=== PATIENT | female | born 1955 | race Caucasian/White ===

== ENCOUNTER → 2018-04-24 | Outpatient (CLI) | payer OTHER | END | disposition home or self-care (01) | LOC: RAH 09:04 | PROVIDERS: ATTEND Family Medicine | DX: Z12.31 Encounter for screening mammogram for malignant neoplasm of breast (principal) | CPT/HCPCS: 77067 ==

== ENCOUNTER → 2019-05-17 | Outpatient (CLI) | payer OTHER | END | disposition home or self-care (01) | LOC: RAH 15:11 | PROVIDERS: ATTEND Family Medicine | DX: Z12.31 Encounter for screening mammogram for malignant neoplasm of breast (principal) | CPT/HCPCS: 77067 ==

== ENCOUNTER → 2019-10-01 | Outpatient (CLI) | payer OTHER ==
[~2019-10-01] MED LIST: AEC81 PO; ALLO300T2 PO; CARV6.2579 PO; CELE200 PO; CHOL2000 PO; DULO60CA44 PO; OMEP20TA2 PO; SPIR25TA PO; TORS20TA4 PO
== END | disposition home or self-care (01) ==
LOC: SHCH 12:30
PROVIDERS: ATTEND Internal Medicine Cardiovascular Disease
DX: I50.22 Chronic systolic (congestive) heart failure (principal)
CPT/HCPCS: 93306

== ENCOUNTER → 2020-11-03 | Outpatient (CLI) | payer OTHER | END | disposition home or self-care (01) | LOC: SHCH 12:38 | PROVIDERS: ATTEND Internal Medicine Cardiovascular Disease | DX: I10 Essential (primary) hypertension (principal) | CPT/HCPCS: 93306; 93356 ==

== ENCOUNTER 2021-07-04 10:49 | Emergency (ER) | payer MEDICARE ==
[~2021-07-04] VITALS: Ht 177.8 cm; Wt 101.6 kg
[~2021-07-04 10:49] MED LIST changes: -DULO60CA44 PO; +DULO60CA45 PO
[2021-07-04 11:25] LABS: BASOPHILS % (AUTO) 0.4 % (0.0-5.0); EOSINOPHILS % (AUTO) 2.3 % (0.0-8.0); HEMATOCRIT 40.3 % (36-48); LYMPHOCYTES % (AUTO) 34.4 % (21.0-51.0); MEAN CORPUSCULAR HEMOGLOBIN 29.5 pg (27.0-33.0); MEAN CORPUSCULAR HGB CONC 32.3 g/dL (32.0-36.0); MEAN CORPUSCULAR VOLUME 91.6 fL (79-99); MONOCYTES % (AUTO) 6.9 % (3.0-13.0); NEUTROPHILS % (AUTO) 55.5 % (40.0-77.0); PLATELET COUNT (AUTO) 470 K/uL (130-400); RED CELL DISTRIBUTION WIDTH 15.7 % (11.0-15.5); WHITE BLOOD COUNT (AUTO) 14.2 K/uL (4.8-10.8)
[2021-07-04 11:52] LABS: CREATININE 1.1 mg/dL (0.5-1.5); POTASSIUM 4.2 mmol/L (3.5-5.1)
[2021-07-04 11:54] LABS: ALBUMIN 3.8 g/dL (3.5-5.0); BILIRUBIN,TOTAL 0.4 mg/dL (0.2-1.0); TOTAL PROTEIN, SERUM 7.8 g/dL (6.0-8.3)
[2021-07-04 11:57] LABS: B-TYPE NATRIURETIC PEPTIDE 51 pg/mL (0-100)
[2021-07-04] MEDS ORDERED: 0.9%NACL 1000ML 1,000 ML IV ONE (13:00)
[2021-07-04] MEDS ORDERED: IOHEXOL-350 75 ML VIAL IV ONE (13:44)
[2021-07-04 14:29] VITALS: BP 127/82
== END 2021-07-04 15:12 | disposition home or self-care (01) ==
LOC: EDH 10:49
DX: R23.8 Other skin changes (principal); R06.09 Other forms of dyspnea; E86.1 Hypovolemia; I11.0 Hypertensive heart disease with heart failure; I50.9 Heart failure, unspecified; E78.00 Pure hypercholesterolemia, unspecified; M79.7 Fibromyalgia; Z88.8 Allergy status to other drugs, medicaments and biological substances; Z79.899 Other long term (current) drug therapy; Z79.82 Long term (current) use of aspirin; Z98.890 Other specified postprocedural states
CPT/HCPCS: 36415; 71045; 71275; 80053; 83880; 84484; 85025; 85378; 93005; 93970; 96360; 99285; J7030; Q9967

== ENCOUNTER → 2021-09-21 | Outpatient (CLI) | payer MEDICARE | END | disposition home or self-care (01) | LOC: RAH 15:03 | PROVIDERS: ATTEND Family Medicine | DX: Z12.31 Encounter for screening mammogram for malignant neoplasm of breast (principal) | CPT/HCPCS: 77067 ==

== ENCOUNTER → 2023-09-12 | Outpatient (CLI) | payer MEDICARE | END | disposition home or self-care (01) | LOC: SHCH 14:33 | PROVIDERS: ATTEND Internal Medicine Cardiovascular Disease | DX: I08.0 Rheumatic disorders of both mitral and aortic valves (principal); I11.9 Hypertensive heart disease without heart failure; E78.5 Hyperlipidemia, unspecified; F17.200 Nicotine dependence, unspecified, uncomplicated | CPT/HCPCS: 93306 ==

== ENCOUNTER 2025-02-09 22:46 | Inpatient (IN) | payer MEDICARE ==
[~2025-02-09] VITALS: Ht 177.8 cm; Wt 108.0 kg
[~2025-02-09 22:46] MED LIST changes: -CELE200 PO; +DICL20GE TP; -DULO60CA45 PO; +DULO60CA64 PO; +FLUT1BLS3 IH
--- NOTE | 2025-02-09 23:48 | EKG ---
[facility] Test Date: 2025-02-09 Test Time: 23:41:21 Pat Name: VLAD MANDUJANO Department: EDH Room: ED Gender: F Seed Sorter: [id number] Requested By: KAELYN YOO Order Number: [id number] Reading MD: Ayaka Lemus Measurements Intervals [place] Rate: 71 P: 71 ID: [id number] QRS: 43 QRSD: 118 T: 120 QT: 377 QTc: 411 Interpretive Statements Sinus rhythm Nonspecific intraventricular conduction delay Low voltage, precordial leads Nonspecific T abnrm, anterolateral leads Compared to ECG 07/04/2021 11:19:10 Intraventricular conduction delay now present Low QRS voltage now present Sinus arrhythmia no longer present ST (T wave) deviation no longer present Possible ischemia no longer present Electronically Signed On 02-10-2025 12:27:55 RESOLUTION MANAGER by Ayaka Lemus Please click the below link to view image of tracing.
[2025-02-09 23:51] LABS: IMMATURE GRANULOCYTE ABSOLUTE 0.04 K/uL (0-1); NUCLEATED RED BLOOD CELLS 0.0 % (0.0-0.19); PLATELET COUNT (AUTO) 468 K/uL (130-400); RED BLOOD CELL COUNT(AUTO) 4.14 MIL/uL (4.00-5.50); RED CELL DISTRIBUTION WIDTH 18.4 % (11.0-15.5); WHITE BLOOD COUNT (AUTO) 12.4 K/uL (4.8-10.8)
[2025-02-10] VITALS (9 sets, daily range): BP systolic 133–138; BP diastolic 65–69; PULSE 71–87; RESP 17–20; TEMP 97.4–97.7; O2SAT 97–100
[2025-02-10 00:01] LABS: INR 1.0 (0.85-1.15)
[2025-02-10 00:11] LABS: CREATININE 1.2 mg/dL (0.5-1.0); GLOMERULAR FILTR. RATE CALC 49 mL/min (>90); GLUCOSE,RANDOM 108 mg/dL (70-105); SODIUM SERUM 137 mmol/L (136-145); UREA NITROGEN, BLOOD 25 mg/dL (7-18)
--- NOTE | 2025-02-10 00:13 | HMCIMG ---
EXAM: CT Head Without IV Contrast. CLINICAL HISTORY: Headache. TECHNIQUE: Axial computed tomography images of the head/brain without intravenous contrast. COMPARISON: None provided. FINDINGS: BRAIN: No evidence of acute hemorrhage. No mass lesion. No CT evidence for acute territorial infarct. No midline shift or extra-axial collections. There is a small hypodensity in the right occipital lobe, suggestive of an old infarct with encephalomalacia. The CSF spaces are prominent, consistent with volume loss. Periventricular white matter T2 and FLAIR hyperintensities are identified, suggestive of chronic small vessel ischemia. A partially empty sella is seen. There is an atherosclerotic calcification of the intracranial arteries. VENTRICLES: No hydrocephalus. ORBITS: The orbits are unremarkable. SINUSES AND MASTOIDS: Mild mucosal thickening is seen in the sphenoid sinus, suggestive of sinus disease. The other paranasal sinuses and mastoid air cells are clear. BONES: No fracture. SOFT TISSUES: Unremarkable. 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 Mild chronic ischemic changes secondary to small vessel disease. /[place]
[2025-02-10 00:16] LABS: ASPARTATE AMINOTRANSFERASE 12 U/L (10-37); CREATINE KINASE, TOTAL 30 U/L (21-232); TOTAL PROTEIN, SERUM 7.0 g/dL (6.0-8.3)
[2025-02-10 00:56] LABS: APPEARANCE,URINE CLEAR (CLEAR); GLUCOSE, URINE (UA) NEGATIVE (NEGATIVE); LEUKOCYTE ESTERASE ,URINE NEGATIVE Leu/uL (NEGATIVE); NITRATE,URINE NEGATIVE (NEGATIVE); OCCULT BLOOD,URINE NEGATIVE (NEGATIVE)
[2025-02-10 01:00] LABS: SQUAMOUS EPITHELIAL CELL,UR RARE /HPF (0-2)
--- NOTE | 2025-02-10 01:00 | HMCIMG ---
EXAM: CR Chest, 1 view CLINICAL HISTORY: Shortness of breath. COMPARISON: Chest radiograph dated 02/09/2025. FINDINGS: The lungs show no infiltrates or other acute findings. No pleural effusion or pneumothorax. The cardiomediastinal silhouette is within normal limits. No acute osseous abnormality. IMPRESSION: No acute cardiopulmonary process is evident. /[place]
[2025-02-10 01:25] LABS: EOSINOPHILS % (MANUAL) 1 % (1-6); LYMPHOCYTES % (MANUAL) 24 % (22-44); MONOCYTES % (MANUAL) 4 % (2-9); REACTIVE LYMPHOCYTES 25 % (0-0); SEGMENTED NEUTROPHILS % 46 % (40-70)
[2025-02-10 01:26] LABS: MAN.DIFF COMMENT-IMPRESSION MANUAL DIFFERENTIAL
[2025-02-10 01:28] LABS: PLATELET MORPHOLOGY COMMENT ADEQUATE
--- NOTE | 2025-02-10 02:19 | ERN ---
ED Note History of Present Illness Stated Complaint: C/O NUMBNESS TO LEFT FOOT W/CRAMPING TO LT LEG Chief Complaint: Numbness Time Seen by MD: 01:53 Dictation: 70-year-old female history of congestive heart failure follow up by Dr. Calvillo of Cardiology here for evaluation of left lower extremity numbness and tingling. Patient states that she has been having worsening numbness to her left lower extremity with a past few months have got worse over the past three days. She states that she has a history of peripheral artery disease has been having trouble walking due to the pain. She was told at one point that she might lose her leg if she does not get a revascularization study. She has had ultrasounds before in the past but does not know the results of the a.m.. States that she has been trying to get a appointment with Cardiology but has not been successful in seeing her doctor as he has been out. No fever no cough no shortness a breath. No nausea vomiting diarrhea. No slurred speech. No altered mental status. No left arm weakness or slurred speech. Allergies: Coded Allergies: Doyiqhe-Vsh-Kwh Reductase Inhibitor (Verified Allergy, Unknown, 05/28/19) gabapentin (Verified Allergy, Unknown, 05/28/19) Home Meds Active Scripts Diclofenac Sodium (Voltaren Arthritis Pain) 1 % Gel..gram., 4 GM TP TID for 10 Days, #1 TUBE Prov:MALGORZATA HARRIS MD 08/30/24 Torsemide (Torsemide) 20 Mg Tablet, 20 MG PO DAILY for 30 Days, #30 TAB Prov:MADDIE DUNBAR Jr., MD 06/03/19 Spironolactone (Aldactone) 25 Mg Tablet, 25 MG PO DAILY for 30 Days, #30 TAB Prov:MADDIE DUNBAR Jr., MD 06/03/19 Carvedilol (Coreg) 6.25 Mg Tablet, 6.25 MG PO BID for 30 Days, #60 TAB Prov:MADDIE DUNBAR Jr., MD 06/03/19 Aspirin (ASPIRIN 81 MG ECTAB) 81 Mg Ectab, 81 MG PO DAILY for 30 Days, #30 TAB.E C Prov:MADDIE DUNBAR Jr., MD 06/03/19 Reported Medications Fluticasone/Umeclidin/Vilanter (Trelegy Ellipta 100-62.5-25) 100-62.5 Blst.w.dev, 1 PUFF IH DAILY for 30 Days, #1 EACH 0 Refills 08/31/24 Duloxetine HCl (Duloxetine HCl) 60 Mg Capsule.dr, 1 CAP PO BID for 30 Days, #30 CAP 0 Refills 08/31/24 Omeprazole Magnesium (Prilosec Otc) 20 Mg Tablet.dr, 40 MG PO DAILY, TAB 05/29/19 Allopurinol (Allopurinol) 300 Mg Tablet, 300 MG PO DAILY, TAB 05/29/19 Cholecalciferol (Vitamin D3) (Vitamin D3) 50 Mcg Capsule, 50 MCG PO DAILY, CAP 05/29/19 Past Medical History Past Medical History: CHF, COPD, Fibromyalgia, High Cholesterol, Hypertension Surgical History: Hysterectomy, Other Surgical History Other: HERNIA REPAIR Social History: Other Review of System Dictation Positive for numbness and tingling and left lower extremity. Negative for rest Initial Vital Sign VS Vital Signs Date Time Temp Pulse Resp B/P (MAP) Pulse Ox O2 Delivery O2 Flow Rate FiO2 02/09/25 22:48 97.2 95 20 135/66 99 Room Air 02/09/25 23:05 0 21 Physical Exam Dictation GENERAL APPEARANCE NAD, activity normal for age, no cyanosis, pallor, or diaphoresis. EYES lids/conjunctiva normal. EARS/NOSE/THROAT Mucous membranes moist, nares normal, lips/teeth normal uvula midline without oral pharyngeal erythema, exudate or swelling TMs normal bilaterally. No lymphangitis/lymphedema. HEAD/NECK normocephalic atraumatic, no facial trauma, neck is supple. RESPIRATORY respiratory effort normal, speaks in full sentences, no tripod position, no accessory muscle use. Lungs clear to auscultation without rhonchi, wheezes, rales CARDIAC Regular rate and rhythm, no edema. ABDOMINAL Soft, ND/NT. No evidence of fluid wave. No pulsatile masses on exam, rebound tenderness, Hull sign or pain over Mcburney's point. MUSCLES/EXTREMITIES No abnormal range of motion, no swelling. Lower extremities with muscle wasting SKIN Warm, pink and dry. No rashes, dermatoses, petechiae or lesions. NEUROLOGICAL Speech is clear and appropriate. Normal level of consciousness. PSYCH Normal mood and affect. Judgement/competence is appropriate Results (Laboratory/Radiology) Laboratory/Radiology Laboratory Tests Test 02/09/25 23:42 02/10/25 00:30 White Blood Count 12.4 K/uL (4.8-10.8) H Red Blood Count 4.14 MIL/uL (4.00-5.50) Hemoglobin 10.6 g/dL (12.0-16.0) L Hematocrit 34.8 % (36-48) L Mean Corpuscular Volume 84.1 fL (79-99) Mean Corpuscular Hemoglobin 25.6 pg (27.0-33.0) L Mean Corpuscular Hemoglobin Concent 30.5 g/dL (32.0-36.0) L Red Cell Distribution Width 18.4 % (11.0-15.5) H Platelet Count 468 K/uL (130-400) H Mean Platelet Volume 9.0 fL (7.5-10.5) Immature Granulocyte % (Auto) 0.3 % (0-1) Neutrophils (%) (Auto) 45.0 % (40.0-77.0) Lymphocytes (%) (Auto) 45.6 % (21.0-51.0) Monocytes (%) (Auto) 5.9 % (3.0-13.0) Eosinophils (%) (Auto) 2.7 % (0.0-8.0) Basophils (%) (Auto) 0.5 % (0.0-5.0) Neutrophils # (Auto) 5.6 K/uL (1.8-7.7) Lymphocytes # (Auto) 5.7 K/uL (1.0-4.8) H Monocytes # (Auto) 0.7 K/uL (0.1-1.0) Eosinophils # (Auto) 0.34 K/uL (0.00-0.70) Basophils # (Auto) 0.06 K/uL (0.00-0.20) Absolute Immature Granulocyte (auto 0.04 K/uL (0-1) Segmented Neutrophils % 46 % (40-70) Lymphocytes % (Manual) 24 % (22-44) Monocytes % (Manual) 4 % (2-9) Eosinophils % (Manual) 1 % (1-6) Nucleated Red Blood Cells 0.0 % (0.0-0.19) Differential Comment MANUAL DIFFERENTIAL Reactive Lymphocytes 25 % (0-0) H White Cell Morphology Comment See comments Platelet Morphology Comment ADEQUATE Red Blood Cell Morphology ANISO 1+ Prothrombin Time 10.6 SEC (9.6-11.6) Prothromb Time International Ratio 1.00 (0.85-1.15) Activated Partial Thromboplast Time 25.4 SEC (26.3-35.5) L Sodium Level 137 mmol/L (136-145) Potassium Level 4.0 mmol/L (3.5-5.1) Chloride Level 102 mmol/L (101-111) Carbon Dioxide Level 29 mmol/L (21-32) Blood Urea Nitrogen 25 mg/dL (7-18) H Creatinine 1.2 mg/dL (0.5-1.0) H Glomerular Filtration Rate Calc 49 mL/min (>90) Random Glucose 108 mg/dL (70-105) H Lactic Acid Level 1.6 mmol/L (0.8-2.5) Total Calcium 9.1 mg/dL (8.5-10.1) Total Bilirubin 0.1 mg/dL (0.2-1.0) L Direct Bilirubin < 0.1 mg/dL (0.0-0.3) Aspartate Amino Transf (AST/SGOT) 12 U/L (10-37) Alanine Aminotransferase (ALT/SGPT) 14 U/L (12-78) Alkaline Phosphatase 65 U/L (50-136) Total Creatine Kinase 30 U/L (21-232) # Troponin I High Sensitivity 5 ng/L (4-50) Total Protein 7.0 g/dL (6.0-8.3) Albumin 3.3 g/dL (3.5-5.0) L Procalcitonin < 0.05 ng/mL (0.05-0.5) L Urine Color LIGHT-YELLOW (YELLOW) Urine Appearance CLEAR (CLEAR) Urine pH 5.5 (5.0-8.0) Urine Specific [place] 1.014 (1.001-1.031) Urine Protein NEGATIVE mg/dL (NEGATIVE) Urine Glucose (UA) NEGATIVE mg/dL (NEGATIVE) Urine Ketones NEGATIVE mg/dL (NEGATIVE) Urine Occult Blood NEGATIVE (NEGATIVE) Urine Nitrate NEGATIVE (NEGATIVE) Urine Bilirubin NEGATIVE mg/dL (NEGATIVE) Urine Urobilinogen 0.2 mg/dL (0.2-1.0) Urine Leukocyte Esterase NEGATIVE [place]/uL Urine RBC 0-1 /HPF (0-1) Urine WBC 0-1 /HPF (0-1) Urine Squamous Epithelial Cells RARE /HPF (0-2) Urine Bacteria None /HPF (None Seen) Urine Hyaline Casts 2-5 /LPF (0-1 /LPF) H ED Course ED Course Orders Procedure Category Date Status Time 12 Lead Ekg Tracing- EKG 02/09/25 Complete Technical 23:02 Cbc With Differential LAB 02/09/25 In Process 23:02 Basic Metabolic Panel LAB 02/09/25 Complete 23:02 Creatine Kinase, Total LAB 02/09/25 Complete 23:02 Hepatic Function Panel LAB 02/09/25 Complete 23:02 Lactic Acid LAB 02/09/25 Complete 23:02 Procalcitonin LAB 02/09/25 Complete 23:02 Pt And Ptt LAB 02/09/25 Complete 23:02 Troponin I High LAB 02/09/25 Complete Sensitivity 23:02 Urinalysis LAB 02/09/25 Complete W/Microscopic 23:02 Chest 1vw RAD 02/09/25 Resulted 23:02 Ct Head/Brain W/O CT 02/09/25 Resulted Contrast 23:02 Manual Differential LAB 02/09/25 In Process 23:42 Us Arterial Bilat Low US 02/10/25 Taken Ext Dupl 02:15 Vital Signs Date Time Temp Pulse Resp B/P (MAP) Pulse Ox O2 Delivery O2 Flow Rate FiO2 02/09/25 23:05 98.8 76 17 138/60 98 Room Air* 0 21 02/09/25 22:48 97.2 95 20 135/66 99 Room Air Medical Decision Making MDM 70-year-old female with a extensive past medical history follow up by cardiology here for evaluation of left lower extremity pain. Ultrasound arterial shows monophasic flow and decreased flow with collaterals perfusing the distal lower extremity as per animal health technician. She will likely benefit from possible revascularization on the floors. She has follow up by [facility]. As she is in pain and unable to go home/care for self we will admit at this time. DX & DISP Disposition: Inpatient Decision to Admit Date: Feb 10, 2025 Decision to Admit Time: 03:00 Departure Impression: Primary Impression: Peripheral arterial disease Additional Impression: Leg pain, left Condition: Stable Referrals: YESI CHASE MD (PCP) ERIK GALAVIZ MD Feb 10, 2025 02:19
--- NOTE | 2025-02-10 04:08 | HP ---
History of Present Illness Reason for Visit: Lower extremity Referring MD: Samy Rashid History of Present Illness Ms. Luna is a 70-year-old female that was seen and examined today on 02/10/2025. Patient is a good historian of personal health Patient reports that she came to the emergency department with a chief complaint of lower extremity pain. Onset is chronic however pain has been worse over the last three days. Location is left lower extremity. Duration is on and off. Character is described as sharp, tingling, numbness. Symptoms are aggravated with walking. There was no alleviating factors. Patient denies any associated chest pain or shortness and breath. Patient reports that she has been eating a revascularization for some time to her left lower extremity and knows that she has poor circulation to left lower extremity. Today in the emergency department WBCs 12.4, creatinine 1.2, urinalysis unremarkable, chest x-ray unremarkable, CT of the head is unremarkable, arterial ultrasound is pending radiology interpretation however preliminary report shows monophasic waveforms to the left lower extremity. For this reason emergency room physician recommended that charles mattson be admitted so she could be evaluated by Cardiology Service for possible revascularization. Past Medical History Patient History: Carcinomas MOTHER SISTER Cardiovascular disease MOTHER FATHER Chronic obstructive pulmonary disease MOTHER Hypertension MOTHER FATHER Immunocompromised state SISTER ADDITIONAL PAST MEDICAL HISTORY: [Hypertension, diastolic heart failure with LVEF 60-65% by 2D echo on 09/12/2023 grade 1, peripheral artery disease, hyperlipidemia with allergy to statins, COPD, fibromyalgia] SOCIAL HISTORY: [Positive for smoking, negative for alcohol use, drug use. Patient is typically independent of her ADLs. Patient denies difficulty paying her bills.] SURGICAL HISTORY: [Hernia repair, hysterectomy, lower extremity angioplasty Review of Systems General: No Fever, No Chills, No Night Sweats, No Fatigue, No Malaise, No Appetite, No Other HEENT: No Head Aches, No Visual Changes, No Eye Pain, No Ear Pain, No Dysphasia, No Sinus Congestion, No Post Nasal Drip, No Sore Throat, No Other Pulmonary: No Dyspnea, No Cough, No Pleuritic Chest Pain, No Other Cardiovascular: No: Chest Pain, Palpitations, Orthopnea, Paroxysmal Noc. Dyspnea, Edema, Lt Headedness, Other Gastrointestinal: No: Nausea, Vomiting, Abdominal Pain, Diarrhea, Constipation, Melena, Hematochezia, Other Genitourinary: No Dysuria, No Frequency, No Incontinence, No Hematuria, No Retention, No Other Musculoskeletal: leg pain; No: other, neck pain, shoulder pain, arm pain, back pain, hand pain, foot pain Skin: No Urticaria, No Rash, No Other Neurological: No: Weakness, Numbness, Incoordination, Change in speech, Confusion, Seizures, Other Allergies: Coded Allergies: Audaydb-Vig-Oro Reductase Inhibitor (Verified Allergy, Unknown, 05/28/19) gabapentin (Verified Allergy, Unknown, 05/28/19) Scheduled Allopurinol (Allopurinol), 300 MG PO DAILY, (Reported) Aspirin (Aspirin 81 Mg Ectab), 81 MG PO DAILY Carvedilol (Coreg), 6.25 MG PO BID Cholecalciferol (Vitamin D3) (Vitamin D3), 50 MCG PO DAILY, (Reported) Diclofenac Sodium (Voltaren Arthritis Pain), 4 GM TP TID Duloxetine HCl (Duloxetine HCl), 1 CAP PO BID, (Reported) Fluticasone/Umeclidin/Vilanter (Trelegy Ellipta 100-62.5-25), 1 PUFF IH DAILY, (Reported) Omeprazole Magnesium (Prilosec Otc), 40 MG PO DAILY, (Reported) Spironolactone (Aldactone), 25 MG PO DAILY Torsemide (Torsemide), 20 MG PO DAILY Exam Vital Signs Vital Signs Date Time Temp Pulse Resp B/P (MAP) Pulse Ox O2 Delivery O2 Flow Rate FiO2 02/09/25 23:05 98.8 76 17 138/60 98 Room Air* 0 21 General Appearance: Alert, Oriented X3, Cooperative, mild distress HEENT: Atraumatic, EOMI Respiratory: Clear to auscultation, Normal air movement, NL respiratory effort Cardiovascular: Regular rate, Regular rhythm, Normal S1, Normal S2 Abdominal: Normal bowel sounds, Soft, No tenderness Extremities: Other (Diminished pulses to left lower extremity) Skin: No significant lesion Neuro: Normal gait, Normal speech, Strength at 5/5 X4 ext, Sensation intact, Cranial nerves 3-12 NL Psych/Mental Status: Mental status NL, Mood NL, Thoughts/Content NL Assessment/Plan ASSESSMENT: [ Peripheral vascular disease, POA Leukocytosis, POA Acute kidney injury, POA Hypertension Grade 1 diastolic heart failure with LVEF 60-65% by 2D echo on 09/12/2023 Hyperlipidemia COPD Fibromyalgia] PLAN: [ Admit patient to medical floor as inpatient status. Place patient on telemetry monitoring. Patient will be followed by cardiology service. Keep patient NPO. IV fluid maintenance therapy lactated Ringer's at 75 mL/HR. As needed analgesia with hydromorphone. Advance diet if no indicated procedures after Cardiology evaluation. Check blood culture, follow up with the results Check patient's procalcitonin which was unremarkable Reviewed patient's lactic acid which was unremarkable Patient was not febrile, tachycardic, tachypneic therefore she did not meet sepsis criteria. IV fluid maintenance therapy lactated Ringer's at 75 mL/HR, hold IV fluids if patient develops any peripheral edema, jugular vein distention or shortness and breath Calculate FENA Check urine sodium, creatinine, osmolality Avoid nephrotoxic agents when possible Renally dose all medications when possible Consider consulting Nephrology service if any worsening renal function or evidence of ATN. Monitor patient's labs. Weight patient daily. Monitor intake and output. Consider resuming home medications once they have been reconciled At time of admission home medications has been reconciled For now: Hydralazine 10 mg IV every 4 hours for systolic blood pressure greater than 160 mmHg DuoNebs every 6 hours Pulmicort twice daily Patient has an allergy to statins therefore will not be starting atorvastatin GI prophylaxis, Protonix DVT prophylaxis, heparin ADVANCED CARE PLANNING 1. Which of the following were discussed? Hospice Care - Yes Therapeutic options - yes Advance Directives - Yes - Other discussions - patient wishes to remain a full code at this time 2. Discussed with who? 3. Voluntary nature of this service was explained to the patient? Yes 4. Amount of time spent - ___16 minutes____ 5. Reviewed by Physician? (if this service was performed by NPP) Yes This document was generated in part using voice recognition software, occasional wrong word or sound alike substitutions may have occurred due to the inherent limitations of voice recognition software. Read the chart carefully and recognize using context, where the substitutions have occurred. Although every effort was made to edit the content, nutrition coordinator and typing errors may occur ATTESTATION BY PHYSICIAN I have seen and examined the patient. I reviewed the documentation, medical decision making, and treatment plan as noted by the mid-level provider above. I agree with the findings and plan of care. ] CIPRIANO ESCALANTE Feb 10, 2025 04:08
[2025-02-10] MEDS: LACTATED RINGERS 1000ML 1,000 ML IV SCH ×2 (04:13→04:42)
--- NOTE | 2025-02-10 05:05 | HMCIMG ---
EXAM: US Duplex Bilateral Lower Extremity Arteries CLINICAL HISTORY: Numbness in the left lower extremity, flow evaluation TECHNIQUE: Real-time ultrasound scan of the arteries of the bilateral lower extremities with 2-D antonio scale, color Doppler flow, and spectral waveform analysis. COMPARISON: None provided. FINDINGS: RIGHT LOWER EXTREMITY: Common Femoral Artery (CONVERTER OPERATOR): PSV 96 cm/s, monophasic waveform. Patent. Superficial Femoral Artery (SFA) Proximal: PSV 102 cm/s, monophasic waveform. Patent. SFA Mid: PSV 54 cm/s, monophasic waveform. Patent. SFA Distal: PSV 189 cm/s, monophasic waveform with velocity elevation suggesting approximately 20???49% stenosis. Popliteal Artery (POP A Prox): PSV 62 cm/s, monophasic waveform. Popliteal Artery (POP A Dist): PSV 47 cm/s, monophasic waveform. Posterior Tibial Artery (LITERARY AGENT): No flow detected. Anterior Tibial Artery (EDELMIRA): Collateral flow noted with PSV 20 cm/s. Monophasic waveform. Dorsalis Pedis Artery (DPA): No flow detected. LEFT LOWER EXTREMITY: Common Femoral Artery (CONVERTER OPERATOR): PSV 135 cm/s, triphasic waveform. Patent. Superficial Femoral Artery (SFA) Proximal: PSV 36 cm/s, monophasic waveform. SFA Mid: PSV 41 cm/s, monophasic waveform. SFA Distal: PSV 9 cm/s, monophasic waveform, markedly decreased flow. Popliteal Artery (POP A Prox): PSV 79 cm/s, monophasic waveform. Popliteal Artery (POP A Dist): PSV 64 cm/s, monophasic waveform. Posterior Tibial Artery (LITERARY AGENT): No flow detected. Anterior Tibial Artery (EDELMIRA): No flow detected. Dorsalis Pedis Artery (DPA): No flow detected. IMPRESSION: Diffuse peripheral vascular disease bilaterally. Right: Mild stenosis (20???49%) at right distal SFA. There is no flow within the right posterior tibial artery. Positive flow in the collateral around this area. No flow is detected within the dorsalis pedis artery. Left: Diminished flow in the left distal superficial femoral artery. No flow is evident within the left posterior tibial, anterior tibial, and dorsalis pedis arteries. Recommend a CTA runoff for further evaluation. /[place]
[2025-02-10] MEDS: BUDESONIDE 0.5 MG/2 ML INH IH SCH (06:47)
[2025-02-10 06:56] LABS: CREATININE,URINE RANDOM 103.22 mg/dL (30-135)
--- NOTE | 2025-02-10 10:15 | NUR ---
PT WAS EDUCATED ON THE RISKS OF GETTING OUT OF BED DUE TO HER WEAKNESS AND CHRONIC PAIN. PT STATES "I WILL NOT USE A BEDPAN, I WILL BE GETTING OUT OF BED. I WILL NOT BE PEEING ALL OVER MYSELF." CHARGE NURSE AWARE.
[2025-02-10] MEDS: TORSEMIDE 20 MG TAB PO SCH (11:03)
[2025-02-10] MEDS: ASPIRIN 81 MG EC TAB PO SCH (11:04)
[2025-02-10] MEDS: SPIRONOLACTONE 25 MG TAB PO SCH (11:04)
--- NOTE | 2025-02-10 11:09 | NUR ---
DCP:HOME Pt currently lives at home with a friend. Pt states that she ocassionally uses a cane to ambulate. Pt denies having any home health or provider services. pt states that she can complete ADLs independently. PCP is Dr. Samy Riddle and uses [facility] for any RX needs. At [place] pt will want to go home and pt states that drove herself in.
--- NOTE | 2025-02-10 11:32 | CONS ---
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, severe pulmonary hypertension, ASD with QP/QS 2.25 by doppler, 1.16 by oximetry after CHF treatment, intolerant to flecainide, hypertension, dyslipidemia, diabetes mellitus type 2, CVA, carinal lymph nodes and multiple hepatic masses suggestive of disseminated carcinoma in 04/2019, chronic tobacco use, untreated obstructive sleep apnea, fibromyalgia, depression, intolerant to statins, intolerant to SGLT2 inhibitors due to recurrent yeast infections, PAD s/p RLE peripheral angiogram on 07/27/2024 with balloon angioplasty, arthrectomy and stent placement to the external iliac artery, balloon angioplasty and arthrectomy of the common femoral artery, superficial femoral artery, popliteal artery and tibioperoneal trunk, s/p LLE peripheral angiogram on 08/12/2024 with 79% stenosis of left common iliac artery, dissection in the distal abdominal aorta that resolved in the distal left common iliac artery, appeared flow limiting which may be the cause of monophasic waveforms, left [employer] was not amenable for revascularization, patient was referred to the cardiovascular surgeon Dr. Sarah Esparza 01/11/2025 with recommendations for the patient undergo an angiogram with Dr. Calvillo prior to revascularization who presented to the ED with complaints of left foot discomfort. Cardiology has been consulted for PAD. The patient admitted to left foot discomfort described as a burning sensation, numbness, tingling, and decreased sensation and mobility for greater than 1 month that has gradually progressed prompting her to seek medical attention. Bilateral lower extremity arterial ultrasound 02/10 revealed mild 20-49% stenosis to the right distal SFA, no flow within the right [employer], positive flow in the collateral around this area, no flow within the DP artery. Diminished flow was noted to the left distal SFA, no flow within the left [employer], EDELMIRA, and DP arteries. No wounds to the left foot, unable to palpate DP/PT pulse, duskiness noted to tips of toes. Past Medical History: Chronic systolic/diastolic CHF, LVEF as low as 16% in 2019, improved to 60-65% in 2023 FANNY, untreated Hypertension Peripheral artery disease Pulmonary hypertension ASD with QP/QS 2.25 by doppler, 1.16 by oximetry after CHF treatment Fibromyalgia T2DM CVA in October of 2022 Intolerance of statins (myalgias), flecanide, neurontin, gabapentin, SGLT2i Past Surgical History: hernia repair Family History: mother with CHF, cancer Social History: tobacco user Current Meds: Current Medications Medications Dose Ordered Sig/Bandar Start Time Stop Time Status Last Admin Acetaminophen 650 mg Q6H PRN 02/10/25 04:00 03/12/25 03:59 Hydromorphone HCl 0.25 mg Q4H PRN 02/10/25 04:00 02/15/25 03:59 Heparin Sodium (Porcine) 5,000 unit Q12H 02/10/25 09:00 03/12/25 08:59 Hydralazine HCl 10 mg Q6H PRN 02/10/25 04:00 03/12/25 03:59 Lactated Ringer's 1,000 ml @ 75 mls/hr [id number] 02/10/25 04:00 03/12/25 03:59 02/10/25 11:04 Lactulose 20 gm BID PRN 02/10/25 04:00 03/12/25 03:59 Pantoprazole Sodium 40 mg DAILY 02/10/25 09:00 03/12/25 08:59 02/10/25 11:03 Ondansetron HCl 4 mg Q6H PRN 02/10/25 04:00 03/12/25 03:59 Albuterol 1 UDVIAL [id number] 02/10/25 06:00 03/12/25 05:59 02/10/25 06:47 Budesonide 0.5 mg BIDRESP 02/10/25 06:00 03/12/25 05:59 02/10/25 06:47 Lactated Ringer's 1,000 ml @ 75 mls/hr [id number] 02/10/25 04:30 03/12/25 04:29 02/10/25 04:42 Aspirin 81 mg DAILY 02/10/25 09:00 03/12/25 08:59 02/10/25 11:04 Carvedilol 6.25 mg BID 02/10/25 09:00 03/12/25 08:59 02/10/25 11:04 Spironolactone 25 mg DAILY 02/10/25 09:00 03/12/25 08:59 02/10/25 11:04 Torsemide 20 mg DAILY 02/10/25 09:00 03/12/25 08:59 02/10/25 11:03 Duloxetine HCl 60 mg BID 02/10/25 09:00 03/12/25 08:59 02/10/25 11:03 Nicotine 14 mg DAILY 02/11/25 09:00 03/13/25 08:59 Review of Systems: CONST: Admits to left foot discomfort and limited mobility and sensation EYES: No recent vision problems. ENT: No congestion, ear pain, or sore throat. C/V: No chest pain, palpitations, or edema. RESP: No cough, congestion, wheezing or shortness of breath. GI: No abdominal pain, nausea, vomiting, constipation, or diarrhea. : No incontinence or dysuria. SKIN: No rash. NEURO: No headache, focal numbness or weakness, dizziness, or seizures. PSYCH: No depression or anxiety. HEME: No abnormal bruising or bleeding. LYMPH: No swollen glands. Physical Examination: GENERAL: The patient presents with foul odor, dirt and feces noted to her shoes. HEAD: Normal with no signs of head trauma. EYES: PERRLA, EOMI, conjunctiva and sclera normal. ENT: Hearing grossly intact, normal oropharynx. NECK: Supple without JVD. Normal carotid upstrokes without bruits. LUNGS: Clear breath sounds bilaterally. HEART: Normal rate and rhythm. Normal S1 and S2 without murmurs, gallop or rub. VASC: Unable to palpate left DP pulse ABD: Bowel sounds normal, soft, nontender, no masses, no organomegaly. No audible bruits. : Not examined LYMPH: No lymphadenopathy noted. EXT: No clubbing, cyanosis or edema. SKIN: No rashes or lesions noted. NEURO: Awake, alert, and oriented x3. No focal sensory or strength deficits noted. Vital Signs (last 8hr) Date Time Temp Pulse Resp B/P (MAP) Pulse Ox O2 Delivery O2 Flow Rate FiO2 02/10/25 11:04 146/75 02/10/25 06:58 71 17 02/10/25 06:51 71 17 N/A Room Air 21 02/10/25 06:51 71 17 02/10/25 04:48 74 17 N/A Room Air 21 02/10/25 04:01 98.1 74 16 124/62 97 Room Air* 0 21 Laboratory: Hematology Labs: Test 02/09/25 23:42 Range/Units White Blood Count 12.4 H 4.8-10.8 K/uL Red Blood Count 4.14 4.00-5.50 MIL/uL Hemoglobin 10.6 L 12.0-16.0 g/dL Hematocrit 34.8 L 36-48 % Mean Corpuscular Volume 84.1 79-99 fL Mean Corpuscular Hemoglobin 25.6 L 27.0-33.0 pg Mean Corpuscular Hemoglobin Concent 30.5 L 32.0-36.0 g/dL Red Cell Distribution Width 18.4 H 11.0-15.5 % Platelet Count 468 H 130-400 K/uL Mean Platelet Volume 9.0 7.5-10.5 fL Immature Granulocyte % (Auto) 0.3 0-1 % Neutrophils (%) (Auto) 45.0 40.0-77.0 % Lymphocytes (%) (Auto) 45.6 21.0-51.0 % Monocytes (%) (Auto) 5.9 3.0-13.0 % Eosinophils (%) (Auto) 2.7 0.0-8.0 % Basophils (%) (Auto) 0.5 0.0-5.0 % Neutrophils # (Auto) 5.6 1.8-7.7 K/uL Lymphocytes # (Auto) 5.7 H 1.0-4.8 K/uL Monocytes # (Auto) 0.7 0.1-1.0 K/uL Eosinophils # (Auto) 0.34 0.00-0.70 K/uL Basophils # (Auto) 0.06 0.00-0.20 K/uL Absolute Immature Granulocyte (auto 0.04 0-1 K/uL Segmented Neutrophils % 46 40-70 % Lymphocytes % (Manual) 24 22-44 % Monocytes % (Manual) 4 2-9 % Eosinophils % (Manual) 1 1-6 % Nucleated Red Blood Cells 0.0 0.0-0.19 % Differential Comment MANUAL DIFFERENTIAL Reactive Lymphocytes 25 H 0-0 % White Cell Morphology Comment See comments Platelet Morphology Comment ADEQUATE Red Blood Cell Morphology ANISO 1+ Chemistry Labs: Test 02/09/25 23:42 Range/Units Sodium Level 137 136-145 mmol/L Potassium Level 4.0 3.5-5.1 mmol/L Chloride Level 102 101-111 mmol/L Carbon Dioxide Level 29 21-32 mmol/L Blood Urea Nitrogen 25 H 7-18 mg/dL Creatinine 1.2 H 0.5-1.0 mg/dL Glomerular Filtration Rate Calc 49 >90 mL/min Random Glucose 108 H 70-105 mg/dL Lactic Acid Level 1.6 0.8-2.5 mmol/L Total Calcium 9.1 8.5-10.1 mg/dL Total Bilirubin 0.1 L 0.2-1.0 mg/dL Direct Bilirubin < 0.1 0.0-0.3 mg/dL Aspartate Amino Transf (AST/SGOT) 12 10-37 U/L Alanine Aminotransferase (ALT/SGPT) 14 12-78 U/L Alkaline Phosphatase 65 50-136 U/L Total Creatine Kinase 30 # 21-232 U/L Troponin I High Sensitivity 5 4-50 ng/L Total Protein 7.0 6.0-8.3 g/dL Albumin 3.3 L 3.5-5.0 g/dL Procalcitonin < 0.05 L 0.05-0.5 ng/mL Coagulation Labs: Test 02/09/25 23:42 Range/Units Prothrombin Time 10.6 9.6-11.6 SEC Prothromb Time International Ratio 1.00 0.85-1.15 Activated Partial Thromboplast Time 25.4 L 26.3-35.5 SEC Diagnostics / Radiology: IMPRESSION: Diffuse peripheral vascular disease bilaterally. Right: Mild stenosis (20???49%) at right distal SFA. There is no flow within the right posterior tibial artery. Positive flow in the collateral around this area. No flow is detected within the dorsalis pedis artery. Left: Diminished flow in the left distal superficial femoral artery. No flow is evident within the left posterior tibial, anterior tibial, and dorsalis pedis arteries. Recommend a CTA runoff for further evaluation. /[place] DICTATED BY: JAMEY HI Jr., MD DATE: 02/10/25602 Assessment: PAD, left foot discomfort Chronic systolic/diastolic CHF, LVEF as low as 16% in 2019, improved to 60-65% in 2023 FANNY, untreated Hypertension Pulmonary hypertension ASD with QP/QS 2.25 by doppler, 1.16 by oximetry after CHF treatment Fibromyalgia HTN HLP T2DM CVA in October of 2022 Carinal lymph nodes and multiple hepatic masses suggestive of disseminated carcinoma in 04/2019 Intolerance of statins (myalgias), flecanide, neurontin, gabapentin, SGLT2i Active tobacco use of 2PPD Plan: PAD, left foot discomfort s/p RLE peripheral angiogram on 07/27/2024 with balloon angioplasty, arthrectomy and stent placement to the right external iliac artery, balloon angioplasty and arthrectomy of the right common femoral artery, right superficial femoral artery, right popliteal artery and right tibioperoneal trunk s/p LLE peripheral angiogram on 08/12/2024 with 79% stenosis of left common iliac artery, dissection in the distal abdominal aorta that resolved in the distal left common iliac artery, appeared flow limiting which may be the cause of monophasic waveforms, with left [employer] was not amenable for revascularization BLE arterial ultrasound 02/10 revealed mild 20-49% stenosis to the right distal SFA, no flow within the right [employer], positive flow in the collateral around this area, no flow within the DP artery. Diminished flow was noted to the left distal SFA, no flow within the left [employer], EDELMIRA, and DP arteries. The patient was seen by [facility] Dr. Sarah Esparza 01/11/2025 with recommendations for the patient undergo an angiogram with Dr. Calvillo prior to revascularization -Continue aspirin. Intolerant to statins. -Obtain a CTA abd aorta with BLE runoff -Consult AYAKA Lowe DO Feb 10, 2025 11:32 NAVEEN FRANKLIN RAIL SIGNAL MECHANIC Feb 10, 2025 15:06
--- NOTE | 2025-02-10 15:03 | NUR ---
ATTEMPTED TO CALL REPORT AT THIS TIME; PENDING CALL BACK.
[2025-02-10] MEDS ORDERED: IOHEXOL-350 75 ML VIAL IV ONE (15:16)
--- NOTE | 2025-02-10 15:18 | NUR ---
PT WENT TO CT AT THIS TIME.
--- NOTE | 2025-02-10 15:18 | NUR ---
REPORT GIVEN AT THIS TIME TO PATRICK ROWLEY.
--- NOTE | 2025-02-10 15:38 | PN ---
[facility] PROGRESS NOTE Date of Service: Feb 10, 2025 Time of Service: 15:09 SUBJECTIVE: Ms. Luna is a 70-year-old female that was seen and examined today on 02/10/2025. Patient is a good historian of personal health Patient reports that she came to the emergency department with a chief complaint of lower extremity pain. Onset is chronic however pain has been worse over the last three days. Location is left lower extremity. Duration is on and off. Character is described as sharp, tingling, numbness. Symptoms are aggravated with walking. There was no alleviating factors. Patient denies any associated chest pain or shortness and breath. Patient reports that she has been eating a revascularization for some time to her left lower extremity and knows that she has poor circulation to left lower extremity. Today in the emergency department WBCs 12.4, creatinine 1.2, urinalysis unremarkable, chest x-ray unremarkable, CT of the head is unremarkable, arterial ultrasound is pending radiology interpreta tion however preliminary report shows monophasic waveforms to the left lower extremity. For this reason emergency room physician recommended that patient be admitted so she could be evaluated by Cardiology Service for possible revascularization. 03/02/2025: Patient is seen and evaluated in the room ED 11. Cardiology consultation placed, waiting for their recommendations. Urinalysis revealed hyaline casts. Patient is a smoker, gave nicotine patch and advised about smoking cessation. Patient takes Repatha once a week. Pending CT angio abdominal aorta with runoff. REVIEW OF SYSTEMS CONSTITUTIONAL: Denies fevers, chills, or night sweats. No unintentional weight loss reported. NEUROLOGICAL: Denies headache, amaurosis fugax, motor weakness, sensory deficit, vertigo/spinning sensation, gait abnormalities, or tremors. ENT: No hearing loss, otalgia, otorrhea, rhinitis, rhinorrhea, hoarseness, or sore throat. CARDIOVASCULAR: Denies any exertional angina, dyspnea on exertion, orthopnea, paroxysmal nocturnal dyspnea, palpitations, life-threatening arrhythmias, claudication. PULMONARY: Denies any shortness of breath, cough, phlegm/sputum, hemoptysis, pleuritic chest pain. SLEEP: Denies morning headaches, daytime somnolence or napping. Denies difficulty falling asleep, staying asleep, waking from sleep. Denies knowledge of snoring. GASTROINTESTINAL: Denies any type of dysphagia to either liquids or solids. Denies nausea, vomiting, pyrosis, early satiety, abdominal pain, diarrhea, constipation, or changes in stool consistency or caliber. Denies coffee-ground emesis, hematemesis, hematochezia, or melanotic stools. GENITOURINARY: Denies frequency, urgency, nocturia, hematuria or incontinence (Storage/Irritative symptoms.) Low urinary stream, straining to void, urinary intermittency or hesitancy, splitting of the voiding stream, terminal dribbling. ENDOCRINOLOGIC: Denies polyuria, polydipsia, polyphagia or heat/cold intolerances. HEMATOLOGIC: Denies thrombophilia/previous clots, or coagulopathy/bleeding disorders. ONCOLOGIC: Denies personal history of malignancy. DERMATOLOGIC: Denies rashes or pruritus. PSYCHIATRIC: Denies any suicidal or homicidal ideation. Denies hallucinations. PHYSICAL EXAM GENERAL APPEARANCE: The patient is awake, alert, and oriented, in no acute cardiopulmonary distress. NEUROLOGICAL: Cranial nerves II-XII grossly intact. Motor is 5/5 in bilateral upper and lower extremities proximal to distal. No sensory deficits. HEENT: Face is symmetric. Pupils are equal and reactive. Extraocular movements are intact. NECK: Supple. No JVD. No thyromegaly. No submental, submandibular, pre-/postauricular, occipital or supraclavicular lymphadenopathy. CHEST: Normal chest expansion. No Telemetry. LUNGS: Absence of any rales, rhonchi or any wheezing. CARDIOVASCULAR: Regular. S1 and S2 normal. No appreciable rubs, murmurs or gallops. ABDOMEN: Soft, nontender, and nondistended. There is no rebound, voluntary guarding, or rigidity. : Deferred. No Blanca. EXTREMITIES: Non-edematous and not cyanotic. No clubbing. Good capillary refill. SKIN: No skin breakdown. Vital Signs (last 8hr) Date Time Temp Pulse Resp B/P (MAP) Pulse Ox O2 Delivery O2 Flow Rate FiO2 02/10/25 11:44 87 17 02/10/25 11:27 78 20 145/86 97 Room Air* 0 21 02/10/25 11:04 146/75 LABS: Laboratory: Test 02/10/25 00:30 02/09/25 23:42 Range/Units Urine Color LIGHT-YELLOW YELLOW Urine Appearance CLEAR CLEAR Urine pH 5.5 5.0-8.0 Urine Specific [place] 1.014 1.001-1.031 Urine Protein NEGATIVE NEGATIVE mg/dL Urine Glucose (UA) NEGATIVE NEGATIVE mg/dL Urine Ketones NEGATIVE NEGATIVE mg/dL Urine Occult Blood NEGATIVE NEGATIVE Urine Nitrate NEGATIVE NEGATIVE Urine Bilirubin NEGATIVE NEGATIVE mg/dL Urine Urobilinogen 0.2 0.2-1.0 mg/dL Urine Leukocyte Esterase NEGATIVE NEGATIVE [place]/uL Urine RBC 0-1 0-1 /HPF Urine WBC 0-1 0-1 /HPF Urine Squamous Epithelial Cells RARE 0-2 /HPF Urine Bacteria None None Seen /HPF Urine Hyaline Casts 2-5 H 0-1 /LPF /LPF Urine Osmolality 419 50-1200 mOsm/kg Urine Random Creatinine 103.22 30-135 mg/dL Urine Random Sodium 81 40-220 mmol/l White Blood Count 12.4 H 4.8-10.8 K/uL Red Blood Count 4.14 4.00-5.50 MIL/uL Hemoglobin 10.6 L 12.0-16.0 g/dL Hematocrit 34.8 L 36-48 % Mean Corpuscular Volume 84.1 79-99 fL Mean Corpuscular Hemoglobin 25.6 L 27.0-33.0 pg Mean Corpuscular Hemoglobin Concent 30.5 L 32.0-36.0 g/dL Red Cell Distribution Width 18.4 H 11.0-15.5 % Platelet Count 468 H 130-400 K/uL Mean Platelet Volume 9.0 7.5-10.5 fL Immature Granulocyte % (Auto) 0.3 0-1 % Neutrophils (%) (Auto) 45.0 40.0-77.0 % Lymphocytes (%) (Auto) 45.6 21.0-51.0 % Monocytes (%) (Auto) 5.9 3.0-13.0 % Eosinophils (%) (Auto) 2.7 0.0-8.0 % Basophils (%) (Auto) 0.5 0.0-5.0 % Neutrophils # (Auto) 5.6 1.8-7.7 K/uL Lymphocytes # (Auto) 5.7 H 1.0-4.8 K/uL Monocytes # (Auto) 0.7 0.1-1.0 K/uL Eosinophils # (Auto) 0.34 0.00-0.70 K/uL Basophils # (Auto) 0.06 0.00-0.20 K/uL Absolute Immature Granulocyte (auto 0.04 0-1 K/uL Segmented Neutrophils % 46 40-70 % Lymphocytes % (Manual) 24 22-44 % Monocytes % (Manual) 4 2-9 % Eosinophils % (Manual) 1 1-6 % Nucleated Red Blood Cells 0.0 0.0-0.19 % Differential Comment MANUAL DIFFERENTIAL Reactive Lymphocytes 25 H 0-0 % White Cell Morphology Comment See comments Platelet Morphology Comment ADEQUATE Red Blood Cell Morphology ANISO 1+ Prothrombin Time 10.6 9.6-11.6 SEC Prothromb Time International Ratio 1.00 0.85-1.15 Activated Partial Thromboplast Time 25.4 L 26.3-35.5 SEC Sodium Level 137 136-145 mmol/L Potassium Level 4.0 3.5-5.1 mmol/L Chloride Level 102 101-111 mmol/L Carbon Dioxide Level 29 21-32 mmol/L Blood Urea Nitrogen 25 H 7-18 mg/dL Creatinine 1.2 H 0.5-1.0 mg/dL Glomerular Filtration Rate Calc 49 >90 mL/min Random Glucose 108 H 70-105 mg/dL Lactic Acid Level 1.6 0.8-2.5 mmol/L Total Calcium 9.1 8.5-10.1 mg/dL Total Bilirubin 0.1 L 0.2-1.0 mg/dL Direct Bilirubin < 0.1 0.0-0.3 mg/dL Aspartate Amino Transf (AST/SGOT) 12 10-37 U/L Alanine Aminotransferase (ALT/SGPT) 14 12-78 U/L Alkaline Phosphatase 65 50-136 U/L Total Creatine Kinase 30 # 21-232 U/L Troponin I High Sensitivity 5 4-50 ng/L Total Protein 7.0 6.0-8.3 g/dL Albumin 3.3 L 3.5-5.0 g/dL Procalcitonin < 0.05 L 0.05-0.5 ng/mL Current Medications Medications (Trade) Dose Ordered Sig/Bandar Route PRN Reason Start Time Stop Time Status Last Admin Dose Admin Acetaminophen (TYLenol 325MG TAB) 650 mg Q6H PRN PO TEMPERATURE GREATER THAN 101.5 02/10/25 04:00 03/12/25 03:59 Albuterol (DUOneb) 1 UDVIAL C9PCHOM IH 02/10/25 06:00 03/12/25 05:59 02/10/25 11:36 1 UDVIAL Aspirin (Aspirin 81mg Ec Tab) 81 mg DAILY PO 02/10/25 09:00 03/12/25 08:59 02/10/25 11:04 81 MG Budesonide (Pulmicort 0.5 Mg/2ml) 0.5 mg BIDRESP IH 02/10/25 06:00 03/12/25 05:59 02/10/25 06:47 0.5 MG Carvedilol (Coreg 6.25MG) 6.25 mg BID PO 02/10/25 09:00 03/12/25 08:59 02/10/25 11:04 6.25 MG Duloxetine HCl (CymbALTA 30 mg CAP) 60 mg BID PO 02/10/25 09:00 03/12/25 08:59 02/10/25 11:03 60 MG Heparin Sodium (Porcine) (HEParin 5,000 UNIT VIAL) 5,000 unit Q12H SQ 02/10/25 09:00 03/12/25 08:59 Hydralazine HCl (APRESOLine 20MG INJ) 10 mg Q6H PRN IV For:SBP above 160;DBP above 90 02/10/25 04:00 03/12/25 03:59 Hydromorphone HCl (DiLAUDid 0.5MG INJ) 0.25 mg Q4H PRN IVP SEVERE PAIN (7-10) 02/10/25 04:00 02/15/25 03:59 Lactated Ringer's 1,000 ml @ 75 mls/hr [id number] IV 02/10/25 04:00 03/12/25 03:59 02/10/25 11:04 75 MLS/HR Lactated Ringer's 1,000 ml @ 75 mls/hr [id number] IV 02/10/25 04:30 03/12/25 04:29 02/10/25 04:42 75 MLS/HR Lactulose (Constulose 20gm/ 30ml Udcup) 20 gm BID PRN PO CONSTIPATION 02/10/25 04:00 03/12/25 03:59 Nicotine (Nicoderm) 14 mg DAILY TD 02/11/25 09:00 03/13/25 08:59 Ondansetron HCl (zoFRAN 4MG INJ) 4 mg Q6H PRN IV NAUSEA/VOMITING 02/10/25 04:00 03/12/25 03:59 Pantoprazole Sodium (PROTonix 40MG INJ) 40 mg DAILY IV 02/10/25 09:00 03/12/25 08:59 02/10/25 11:03 40 MG Spironolactone (Aldactone 25mg) 25 mg DAILY PO 02/10/25 09:00 03/12/25 08:59 02/10/25 11:04 25 MG Torsemide (Demadex) 20 mg DAILY PO 02/10/25 09:00 03/12/25 08:59 02/10/25 11:03 20 MG DIAGNOSTICS / RADIOLOGY: [place] [address] [id number] IMAGING REPORT Signed PATIENT: VLAD SANTOS MR#: [id number] : 1955 SEX: F AGE: 70 LOCATION: [facility] ORDER 02 STATUS: [facility] REPORT#: [id number] SERVICE 01 REASON: Shortness of breath ORDERING PHYSICIAN: KAELYN YOO MD PROCEDURE: CXR1VW - CHEST 1VW EXAM: CR Chest, 1 view CLINICAL HISTORY: Shortness of breath. COMPARISON: Chest radiograph dated 02/09/2025. FINDINGS: The lungs show no infiltrates or other acute findings. No pleural effusion or pneumothorax. The cardiomediastinal silhouette is within normal limits. No acute osseous abnormality. IMPRESSION: No acute cardiopulmonary process is evident. /[place] DICTATED BY: JAMEY HI Jr., MD DATE: 02/10/25199 ELECTRONICALLY SIGNED BY: JAMEY HI Jr., MD DATE: 02/10/25199 [place] [address] [address] IMAGING REPORT Signed PATIENT: VLAD SANTOS MR#: [id number] : 1955 SEX: F AGE: 70 LOCATION: [facility] ORDER 02 STATUS: REG ER REPORT#: [id number] SERVICE 01 REASON: Headache ORDERING PHYSICIAN: KAELYN YOO MD PROCEDURE: HEAD WO - CT HEAD/BRAIN W/O CONTRAST EXAM: CT Head Without IV Contrast. CLINICAL HISTORY: Headache. TECHNIQUE: Axial computed tomography images of the head/brain without intravenous contrast. COMPARISON: None provided. FINDINGS: BRAIN: No evidence of acute hemorrhage. No mass lesion. No CT evidence for acute territorial infarct. No midline shift or extra-axial collections. There is a small hypodensity in the right occipital lobe, suggestive of an old infarct with encephalomalacia. The CSF spaces are prominent, consistent with volume loss. Periventricular white matter T2 and FLAIR hyperintensities are identified, suggestive of chronic small vessel ischemia. A partially empty sella is seen. There is an atherosclerotic calcification of the intracranial arteries. VENTRICLES: No hydrocephalus. ORBITS: The orbits are unremarkable. SINUSES AND MASTOIDS: Mild mucosal thickening is seen in the sphenoid sinus, suggestive of sinus disease. The other paranasal sinuses and mastoid air cells are clear. BONES: No fracture. SOFT TISSUES: Unremarkable. 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 Mild chronic ischemic changes secondary to small vessel disease. /[place] DICTATED BY: JAMEY HI Jr., MD DATE: 02/10/25111 ELECTRONICALLY SIGNED BY: JAMEY HI Jr., MD DATE: 02/10/25111 [place] [address] [address] IMAGING REPORT Signed PATIENT: VLAD SANTOS MR#: [id number] : 1955 SEX: F AGE: 70 LOCATION: ED ORDER 02 STATUS: REG ER REPORT#: [id number] SERVICE 01 REASON: Headache ORDERING PHYSICIAN: KAELYN YOO MD PROCEDURE: HEAD WO - CT HEAD/BRAIN W/O CONTRAST EXAM: CT Head Without IV Contrast. CLINICAL HISTORY: Headache. TECHNIQUE: Axial computed tomography images of the head/brain without intravenous contrast. COMPARISON: None provided. FINDINGS: BRAIN: No evidence of acute hemorrhage. No mass lesion. No CT evidence for acute territorial infarct. No midline shift or extra-axial collections. There is a small hypodensity in the right occipital lobe, suggestive of an old infarct with encephalomalacia. The CSF spaces are prominent, consistent with volume loss. Periventricular white matter T2 and FLAIR hyperintensities are identified, suggestive of chronic small vessel ischemia. A partially empty sella is seen. There is an atherosclerotic calcification of the intracranial arteries. VENTRICLES: No hydrocephalus. ORBITS: The orbits are unremarkable. SINUSES AND MASTOIDS: Mild mucosal thickening is seen in the sphenoid sinus, suggestive of sinus disease. The other paranasal sinuses and mastoid air cells are clear. BONES: No fracture. SOFT TISSUES: Unremarkable. 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 Mild chronic ischemic changes secondary to small vessel disease. /[place] DICTATED BY: JAMEY HI Jr., MD DATE: 02/10/25111 ELECTRONICALLY SIGNED BY: JAMEY HI Jr., MD DATE: 02/10/25111 ASSESSMENT: Peripheral vascular disease Leukocytosis POA AKA Htn Grade diastolic heart failure Hyperlipidemia Fibromyalgia PLAN: Peripheral vascular disease * Duplex ultrasound revealed bilateral peripheral vascular disease * Recommended CT angiography for the for further evaluation * Cardiology consultation placed and waiting for the recommendations * Since smoking is a risk factor advised for smoking cessation * Nicotine patch placed Leukocytosis POA: * WBC 12.4 high Htn: * On torsemide 20 mg+ [id number] mg+ carvedilol 6.25 mg ATTESTATION BY PHYSICIAN I have seen and examined the patient. I reviewed the documentation, medical decision making, and treatment plan as noted by the resident physician above. I agree with the findings and plan of care. KIRSTEN ROMERO MD, HARSHA MD Feb 10, 2025 15:38
[2025-02-11] VITALS (15 sets, daily range): BP systolic 117–152; BP diastolic 58–72; PULSE 56–85; RESP 16–20; TEMP 97.7–98.1; O2SAT 93–97
[2025-02-11 03:21] LABS: IMMATURE GRANULOCYTE ABSOLUTE 0.04 K/uL (0-1); NUCLEATED RED BLOOD CELLS 0.0 % (0.0-0.19); PLATELET COUNT (AUTO) 496 K/uL (130-400); RED BLOOD CELL COUNT(AUTO) 4.68 MIL/uL (4.00-5.50); RED CELL DISTRIBUTION WIDTH 18.2 % (11.0-15.5); WHITE BLOOD COUNT (AUTO) 11.5 K/uL (4.8-10.8)
[2025-02-11 03:33] LABS: ASPARTATE AMINOTRANSFERASE 13.0 U/L (10-37); CREATININE 1.1 mg/dL (0.5-1.0); GLOMERULAR FILTR. RATE CALC 54.0 mL/min (>90); GLUCOSE,RANDOM 105.0 mg/dL (70-105); PHOSPHORUS 4.5 mg/dL (2.5-4.9); SODIUM SERUM 140.0 mmol/L (136-145); TOTAL PROTEIN, SERUM 7.7 g/dL (6.0-8.3); UREA NITROGEN, BLOOD 25.0 mg/dL (7-18)
[2025-02-11 03:53] LABS: INR 1.02 (0.85-1.15)
[2025-02-11] MEDS: NICOTINE 14 MG/ 24 HR PATCH TD SCH (09:04)
[2025-02-11] MEDS ORDERED: PoTASSium chl 10% ELIXIR 20MEQ 20 MEQ/15 ML UDCUP PO PRN (12:00)
--- NOTE | 2025-02-11 14:06 | HMCIMG ---
EXAMINATION: CT ANGIOGRAM OF ABDOMEN AND PELVIS AND RUNOFFS OF THE BILATERAL LOWER EXTREMITIES. CLINICAL HISTORY: Deep venous thrombosis. COMPARISON: None provided. TECHNIQUE: MDCT angiogram of the abdominal aortic vessels was performed after administration of intravenous contrast. FINDINGS: Abdominal aorta is normal in size and caliber. There are atheromatous wall calcification of the aorta, its branches, iliac arteries, and both lower limb arteries. There is no aneurysm or dissection. There is no stenosis or occlusion. The abdominal aortic branches, viz., the celiac and superior mesenteric arteries, are normal in caliber. There is no stenosis or occlusion. The angle between superior mesenteric artery and aorta is normal. Bilateral renal arteries are normal in caliber. There is no stenosis or occlusion. The inferior mesenteric arteries are normal in caliber. Bifurcation morphology is normal. There is no stenosis or occlusion. The bilateral common iliac arteries are normal in caliber. No stenosis or occlusion. The bilateral internal iliac arteries are normal; there is no stenosis or occlusion. Short segment stenosis of the proximal segment of both external iliac arteries with about 60-70% luminal narrowing on the right and 70-80% luminal narrowing on the left. Narrow caliber flow in bilateral superficial femoral arteries. Short segment stenosis of the left distal superficial femoral artery. Collateralized narrow caliber flow in the left popliteal, left peroneal, and left anterior tibial artery. Narrow caliber flow in the right popliteal, right peroneal, and right anterior tibial artery. No demonstrable flow in bilateral posterior tibial arteries. Within the abdomen and pelvis, multiple mon-enhancing hypodense cystic lesions in all segments of the liver ??? cysts; bilateral renal cortical cysts, the largest on the right side measures 3.3 x 3.5 cm and on the left measures 1.0 x 1.0 cm; gallbladder, pancreas, spleen, and adrenal glands are within normal limits; bowel loops are normal in caliber without evidence of obstruction, ileus, or bowel wall thickening, and the appendix is normal; and urinary bladder, pelvic organs appear normal in caliber. The included chest reveals subpleural ground glassing with interseptal thickening in both lower lobes. There is multilevel moderate degenerative spondylosis of the spine. IMPRESSION: Atheromatous wall calcification of the aorta, its branches, iliac arteries, and both lower limb arteries with short segment stenosis of bilateral external iliac arteries, left distal superficial femoral artery with narrow caliber flow in bilateral superficial femoral arteries, popliteal, anterior tibial and peroneal arteries ??? moderate peripheral vascular disease. /[place]
--- NOTE | 2025-02-11 16:59 | PN ---
[facility] CARDIOLOGY PROGRESS NOTE Date Patient Seen: Feb 11, 2025 Time of Visit: 16:54 Problem List: PAD Cardiology has been consulted for PAD. The patient admitted to left foot discomfort described as a burning sensation, numbness, tingling, and decreased sensation and mobility for greater than 1 month that has gradually progressed prompting her to seek medical attention. Interval History: s/p CTA runoff Physical Examination: GENERAL: AOx3 HEAD: Normal with no signs of head trauma. NECK: Supple without JVD. Normal carotid upstrokes without bruits. LUNGS: Clear breath sounds bilaterally. on room air. HEART: Normal rate and rhythm. Normal S1 and S2 without murmurs, gallop or rub. VASC: EXT: No clubbing, cyanosis or edema. SKIN: no edema. no necrosis. no skin breakdown. NEURO: Awake, alert, and oriented x3. No focal sensory or strength deficits noted. Laboratory: [ ] Hematology Labs: Test 02/11/25 03:11 02/09/25 23:42 Range/Units White Blood Count 11.5 H 4.8-10.8 K/uL Red Blood Count 4.68 4.00-5.50 MIL/uL Hemoglobin 12.0 12.0-16.0 g/dL Hematocrit 37.3 36-48 % Mean Corpuscular Volume 79.7 79-99 fL Mean Corpuscular Hemoglobin 25.6 L 27.0-33.0 pg Mean Corpuscular Hemoglobin Concent 32.2 32.0-36.0 g/dL Red Cell Distribution Width 18.2 H 11.0-15.5 % Platelet Count 496 H 130-400 K/uL Mean Platelet Volume 8.9 7.5-10.5 fL Immature Granulocyte % (Auto) 0.3 0-1 % Neutrophils (%) (Auto) 46.0 40.0-77.0 % Lymphocytes (%) (Auto) 45.6 21.0-51.0 % Monocytes (%) (Auto) 6.3 3.0-13.0 % Eosinophils (%) (Auto) 1.4 0.0-8.0 % Basophils (%) (Auto) 0.4 0.0-5.0 % Neutrophils # (Auto) 5.3 1.8-7.7 K/uL Lymphocytes # (Auto) 5.2 H 1.0-4.8 K/uL Monocytes # (Auto) 0.7 0.1-1.0 K/uL Eosinophils # (Auto) 0.16 0.00-0.70 K/uL Basophils # (Auto) 0.05 0.00-0.20 K/uL Absolute Immature Granulocyte (auto 0.04 0-1 K/uL Nucleated Red Blood Cells 0.0 0.0-0.19 % Segmented Neutrophils % 46 40-70 % Lymphocytes % (Manual) 24 22-44 % Monocytes % (Manual) 4 2-9 % Eosinophils % (Manual) 1 1-6 % Reactive Lymphocytes 25 H 0-0 % Chemistry Labs: Test 02/11/25 03:11 02/09/25 23:42 Range/Units Sodium Level 140 136-145 mmol/L Potassium Level 3.8 3.5-5.1 mmol/L Chloride Level 100 L 101-111 mmol/L Carbon Dioxide Level 27 21-32 mmol/L Blood Urea Nitrogen 25 H 7-18 mg/dL Creatinine 1.1 H 0.5-1.0 mg/dL Glomerular Filtration Rate Calc 54 >90 mL/min Random Glucose 105 70-105 mg/dL Total Calcium 10.0 8.5-10.1 mg/dL Phosphorus Level 4.5 2.5-4.9 mg/dL Magnesium Level 1.70 L 1.80-2.40 mg/dL Total Bilirubin 0.3 0.2-1.0 mg/dL Aspartate Amino Transf (AST/SGOT) 13 10-37 U/L Alanine Aminotransferase (ALT/SGPT) 14 12-78 U/L Alkaline Phosphatase 58 50-136 U/L Total Protein 7.7 6.0-8.3 g/dL Albumin 3.6 3.5-5.0 g/dL Lactic Acid Level 1.6 0.8-2.5 mmol/L Direct Bilirubin < 0.1 0.0-0.3 mg/dL Total Creatine Kinase 30 # 21-232 U/L Troponin I High Sensitivity 5 4-50 ng/L Procalcitonin < 0.05 L 0.05-0.5 ng/mL Coagulation Labs: Test 02/11/25 03:11 Range/Units Prothrombin Time 10.8 9.6-11.6 SEC Prothromb Time International Ratio 1.02 0.85-1.15 Activated Partial Thromboplast Time 25.6 L 26.3-35.5 SEC Impression and Plan: PAD, left foot discomfort Chronic systolic/diastolic CHF, LVEF as low as 16% in 2019, improved to 60-65% in 2023 FANNY, untreated Hypertension Pulmonary hypertension ASD with QP/QS 2.25 by doppler, 1.16 by oximetry after CHF treatment Fibromyalgia HTN HLP T2DM CVA in October of 2022 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 There are short-segment stenosis of bilateral external iliac arteries measuring 60-70% right, 70% on the left, narrow caliber flow bilateral SFA, with short-segment stenosis of the left distal SFA, collateralization in the left popliteal, peroneal and left. There is also narrow caliber flow in the right popliteal, peroneal and AT. No flow in bilateral posterior tibialis arteries. I think patient would benefit from invasive peripheral angiography to address the inflow disease of the left external iliac artery and possibly the SFA, with further evaluation possibly by intravascular ultrasound of the right external iliac or and hold catheter pullback gradient to assess for if this stenosis is significant. Improving the inflow may be feasible with endovascular approach, with popliteal/infrapopliteal surgically depending on results. Her primary cnc milling machinist is Dr. Calvillo, and will defer the timing to him for angiography. Patient does not have acute limb ischemia at this point. Continue with the ASA. No statin due to history of intolerance. Recommend therapeutic dose lovenox of which she is amenable. DINH LEVINE DO Feb 11, 2025 16:59
[2025-02-11] MEDS: PoTASSium chloRIDE 20MEQ ER 20 MEQ ERTAB PO PRN (17:54)
[2025-02-11] MEDS: MAGNESIUM 2GM PREMIX 50ML 50 ML IV PRN (17:55)
--- NOTE | 2025-02-11 18:48 | PN ---
[facility] PROGRESS NOTE Date of Service: Feb 11, 2025 Time of Service: 18:40 SUBJECTIVE: Ms. Luna is a 70-year-old female that was seen and examined today on 02/10/2025. Patient is a good historian of personal health Patient reports that she came to the emergency department with a chief complaint of lower extremity pain. Onset is chronic however pain has been worse over the last three days. Location is left lower extremity. Duration is on and off. Character is described as sharp, tingling, numbness. Symptoms are aggravated with walking. There was no alleviating factors. Patient denies any associated chest pain or shortness and breath. Patient reports that she has been eating a revascularization for some time to her left lower extremity and knows that she has poor circulation to left lower extremity. Today in the emergency department WBCs 12.4, creatinine 1.2, urinalysis unremarkable, chest x-ray unremarkable, CT of the head is unremarkable, arterial ultrasound is pending radiology interpreta tion however preliminary report shows monophasic waveforms to the left lower extremity. For this reason emergency room physician recommended that patient be admitted so she could be evaluated by Cardiology Service for possible revascularization. 02/10/2025: Patient is seen and evaluated in the room ED 11. Cardiology consultation placed, waiting for their recommendations. Urinalysis revealed hyaline casts. Patient is a smoker, gave nicotine patch and advised about smoking cessation. Patient takes Repatha once a week. Pending CT angio abdominal aorta with runoff. 02/11/2025: Patient is seen and evaluated in the room 330. CT angio abdominal aorta with runoff revealed atheromatous wall calcification of the aorta and its branches and both lower limb arteries with short-segment stenosis of bilateral external iliac arteries indicating moderate peripheral vascular disease. Since unable to get update from the independent contractor, planned for discharge. But Dr. Velarde spoke with the patient, and planned to do procedure on Friday. Patient agreed to this. REVIEW OF SYSTEMS CONSTITUTIONAL: Denies fevers, chills, or night sweats. No unintentional weight loss reported. NEUROLOGICAL: Denies headache, amaurosis fugax, motor weakness, sensory deficit, vertigo/spinning sensation, gait abnormalities, or tremors. ENT: No hearing loss, otalgia, otorrhea, rhinitis, rhinorrhea, hoarseness, or sore throat. CARDIOVASCULAR: Denies any exertional angina, dyspnea on exertion, orthopnea, paroxysmal nocturnal dyspnea, palpitations, life-threatening arrhythmias, claudication. PULMONARY: Denies any shortness of breath, cough, phlegm/sputum, hemoptysis, pleuritic chest pain. SLEEP: Denies morning headaches, daytime somnolence or napping. Denies difficulty falling asleep, staying asleep, waking from sleep. Denies knowledge of snoring. GASTROINTESTINAL: Denies any type of dysphagia to either liquids or solids. Denies nausea, vomiting, pyrosis, early satiety, abdominal pain, diarrhea, constipation, or changes in stool consistency or caliber. Denies coffee-ground emesis, hematemesis, hematochezia, or melanotic stools. GENITOURINARY: Denies frequency, urgency, nocturia, hematuria or incontinence (Storage/Irritative symptoms.) Low urinary stream, straining to void, urinary intermittency or hesitancy, splitting of the voiding stream, terminal dribbling. ENDOCRINOLOGIC: Denies polyuria, polydipsia, polyphagia or heat/cold intolerances. HEMATOLOGIC: Denies thrombophilia/previous clots, or coagulopathy/bleeding disorders. ONCOLOGIC: Denies personal history of malignancy. DERMATOLOGIC: Denies rashes or pruritus. PSYCHIATRIC: Denies any suicidal or homicidal ideation. Denies hallucinations. PHYSICAL EXAM GENERAL APPEARANCE: The patient is awake, alert, and oriented, in no acute cardiopulmonary distress. NEUROLOGICAL: Cranial nerves II-XII grossly intact. Motor is 5/5 in bilateral upper and lower extremities proximal to distal. No sensory deficits. HEENT: Face is symmetric. Pupils are equal and reactive. Extraocular movements are intact. NECK: Supple. No JVD. No thyromegaly. No submental, submandibular, pre-/postauricular, occipital or supraclavicular lymphadenopathy. CHEST: Normal chest expansion. No Telemetry. LUNGS: Absence of any rales, rhonchi or any wheezing. CARDIOVASCULAR: Regular. S1 and S2 normal. No appreciable rubs, murmurs or gallops. ABDOMEN: Soft, nontender, and nondistended. There is no rebound, voluntary guarding, or rigidity. : Deferred. No Blanca. EXTREMITIES: Non-edematous and not cyanotic. No clubbing. Good capillary refill. SKIN: No skin breakdown. Vital Signs (last 8hr) Date Time Temp Pulse Resp B/P (MAP) Pulse Ox O2 Delivery O2 Flow Rate FiO2 02/11/25 16:25 97.7 77 16 117/58 100 Room Air 02/11/25 13:35 93 Room Air* 0 21 02/11/25 11:50 18 N/A Room Air 21 02/11/25 11:50 69 18 02/11/25 11:40 97.7 69 16 152/58 93 Room Air LABS: Laboratory: Test 02/11/25 03:11 02/10/25 00:30 02/09/25 23:42 Range/Units White Blood Count 11.5 H 4.8-10.8 K/uL Red Blood Count 4.68 4.00-5.50 MIL/uL Hemoglobin 12.0 12.0-16.0 g/dL Hematocrit 37.3 36-48 % Mean Corpuscular Volume 79.7 79-99 fL Mean Corpuscular Hemoglobin 25.6 L 27.0-33.0 pg Mean Corpuscular Hemoglobin Concent 32.2 32.0-36.0 g/dL Red Cell Distribution Width 18.2 H 11.0-15.5 % Platelet Count 496 H 130-400 K/uL Mean Platelet Volume 8.9 7.5-10.5 fL Immature Granulocyte % (Auto) 0.3 0-1 % Neutrophils (%) (Auto) 46.0 40.0-77.0 % Lymphocytes (%) (Auto) 45.6 21.0-51.0 % Monocytes (%) (Auto) 6.3 3.0-13.0 % Eosinophils (%) (Auto) 1.4 0.0-8.0 % Basophils (%) (Auto) 0.4 0.0-5.0 % Neutrophils # (Auto) 5.3 1.8-7.7 K/uL Lymphocytes # (Auto) 5.2 H 1.0-4.8 K/uL Monocytes # (Auto) 0.7 0.1-1.0 K/uL Eosinophils # (Auto) 0.16 0.00-0.70 K/uL Basophils # (Auto) 0.05 0.00-0.20 K/uL Absolute Immature Granulocyte (auto 0.04 0-1 K/uL Nucleated Red Blood Cells 0.0 0.0-0.19 % Prothrombin Time 10.8 9.6-11.6 SEC Prothromb Time International Ratio 1.02 0.85-1.15 Activated Partial Thromboplast Time 25.6 L 26.3-35.5 SEC Sodium Level 140 136-145 mmol/L Potassium Level 3.8 3.5-5.1 mmol/L Chloride Level 100 L 101-111 mmol/L Carbon Dioxide Level 27 21-32 mmol/L Blood Urea Nitrogen 25 H 7-18 mg/dL Creatinine 1.1 H 0.5-1.0 mg/dL Glomerular Filtration Rate Calc 54 >90 mL/min Random Glucose 105 70-105 mg/dL Total Calcium 10.0 8.5-10.1 mg/dL Phosphorus Level 4.5 2.5-4.9 mg/dL Magnesium Level 1.70 L 1.80-2.40 mg/dL Total Bilirubin 0.3 0.2-1.0 mg/dL Aspartate Amino Transf (AST/SGOT) 13 10-37 U/L Alanine Aminotransferase (ALT/SGPT) 14 12-78 U/L Alkaline Phosphatase 58 50-136 U/L Total Protein 7.7 6.0-8.3 g/dL Albumin 3.6 3.5-5.0 g/dL Urine Color LIGHT-YELLOW YELLOW Urine Appearance CLEAR CLEAR Urine pH 5.5 5.0-8.0 Urine Specific [place] 1.014 1.001-1.031 Urine Protein NEGATIVE NEGATIVE mg/dL Urine Glucose (UA) NEGATIVE NEGATIVE mg/dL Urine Ketones NEGATIVE NEGATIVE mg/dL Urine Occult Blood NEGATIVE NEGATIVE Urine Nitrate NEGATIVE NEGATIVE Urine Bilirubin NEGATIVE NEGATIVE mg/dL Urine Urobilinogen 0.2 0.2-1.0 mg/dL Urine Leukocyte Esterase NEGATIVE NEGATIVE [place]/uL Urine RBC 0-1 0-1 /HPF Urine WBC 0-1 0-1 /HPF Urine Squamous Epithelial Cells RARE 0-2 /HPF Urine Bacteria None None Seen /HPF Urine Hyaline Casts 2-5 H 0-1 /LPF /LPF Urine Osmolality 419 50-1200 mOsm/kg Urine Random Creatinine 103.22 30-135 mg/dL Urine Random Sodium 81 40-220 mmol/l Segmented Neutrophils % 46 40-70 % Lymphocytes % (Manual) 24 22-44 % Monocytes % (Manual) 4 2-9 % Eosinophils % (Manual) 1 1-6 % Reactive Lymphocytes 25 H 0-0 % Lactic Acid Level 1.6 0.8-2.5 mmol/L Direct Bilirubin < 0.1 0.0-0.3 mg/dL Total Creatine Kinase 30 # 21-232 U/L Troponin I High Sensitivity 5 4-50 ng/L Procalcitonin < 0.05 L 0.05-0.5 ng/mL Current Medications Medications (Trade) Dose Ordered Sig/Bandar Route PRN Reason Start Time Stop Time Status Last Admin Dose Admin Acetaminophen (TYLenol 325MG TAB) 650 mg Q6H PRN PO TEMPERATURE GREATER THAN 101.5 02/10/25 04:00 03/12/25 03:59 Albuterol (DUOneb) 1 UDVIAL D6HBEBC 02/10/25 06:00 03/12/25 05:59 02/11/25 11:22 1 UDVIAL Aspirin (Aspirin 81mg Ec Tab) 81 mg DAILY PO 02/10/25 09:00 03/12/25 08:59 02/11/25 09:03 81 MG Budesonide (Pulmicort 0.5 Mg/2ml) 0.5 mg BIDRESP 02/10/25 06:00 03/12/25 05:59 02/11/25 06:48 0.5 MG Carvedilol (Coreg 6.25MG) 6.25 mg BID PO 02/10/25 09:00 03/12/25 08:59 02/11/25 09:03 6.25 MG Duloxetine HCl (CymbALTA 30 mg CAP) 60 mg BID PO 02/10/25 09:00 03/12/25 08:59 02/11/25 09:03 60 MG Enoxaparin Sodium (Lovenox) 100 mg BID SQ 02/11/25 21:00 03/13/25 20:59 Heparin Sodium (Porcine) (HEParin 5,000 UNIT VIAL) 5,000 unit Q12H SQ 02/10/25 09:00 02/11/25 18:21 DC Hydralazine HCl (APRESOLine 20MG INJ) 10 mg Q6H PRN IV For:SBP above 160;DBP above 90 02/10/25 04:00 03/12/25 03:59 Hydromorphone HCl (DiLAUDid 0.5MG INJ) 0.25 mg Q4H PRN IVP SEVERE PAIN (7-10) 02/10/25 04:00 02/15/25 03:59 02/11/25 14:01 0.25 MG Lactated Ringer's 1,000 ml @ 75 mls/hr [id number] IV 02/10/25 04:00 02/11/25 11:42 DC 02/10/25 11:04 75 MLS/HR Lactated Ringer's 1,000 ml @ 75 mls/hr [id number] IV 02/10/25 04:30 03/12/25 04:29 02/10/25 04:42 75 MLS/HR Lactulose (Constulose 20gm/ 30ml Udcup) 20 gm BID PRN PO CONSTIPATION 02/10/25 04:00 03/12/25 03:59 Magnesium Sulfate 50 ml @ 0 mls/hr PROTOCOL PRN IV PROTOCOL 02/11/25 12:00 03/13/25 11:59 02/11/25 17:55 25 MLS/HR Nicotine (Nicoderm) 14 mg DAILY TD 02/11/25 09:00 03/13/25 08:59 02/11/25 09:04 14 MG Ondansetron HCl (zoFRAN 4MG INJ) 4 mg Q6H PRN IV NAUSEA/VOMITING 02/10/25 04:00 03/12/25 03:59 Pantoprazole Sodium (PROTonix 40MG INJ) 40 mg DAILY IV 02/10/25 09:00 03/12/25 08:59 02/11/25 09:03 40 MG Potassium Chloride 100 ml @ 100 mls/hr AD PRN IV POTASSIUM PROTOCOL 02/11/25 12:00 03/13/25 11:59 Potassium Chloride (K-Dur/Klor-Con 20meq) 20 meq AD PRN PO POTASSIUM PROTOCOL 02/11/25 12:00 03/13/25 11:59 02/11/25 17:54 20 MEQ Potassium Chloride (KCl 10% Elixir 20meq/15ml) 20 meq AD PRN PO POTASSIUM PROTOCOL 02/11/25 12:00 03/13/25 11:59 Spironolactone (Aldactone 25mg) 25 mg DAILY PO 02/10/25 09:00 03/12/25 08:59 02/11/25 09:03 25 MG Torsemide (Demadex) 20 mg DAILY PO 02/10/25 09:00 03/12/25 08:59 02/11/25 09:03 20 MG DIAGNOSTICS / RADIOLOGY: [place] [id number] [id number] IMAGING REPORT Signed PATIENT: VLAD SANTOS MR#: [id number] : 1955 SEX: F AGE: 70 LOCATION: 3AH ORDER [id number] STATUS: ADM IN REPORT#: [id number] SERVICE 1239 REASON: pad ORDERING PHYSICIAN: NAVEEN FRANKLIN [employer] SUPERVISOR PROCEDURE: CTA ABDAOR - CT ANGIO ABD AORTA W RUNOFF EXAMINATION: CT ANGIOGRAM OF ABDOMEN AND PELVIS AND RUNOFFS OF THE BILATERAL LOWER EXTREMITIES. CLINICAL HISTORY: Deep venous thrombosis. COMPARISON: None provided. TECHNIQUE: MDCT angiogram of the abdominal aortic vessels was performed after administration of intravenous contrast. FINDINGS: Abdominal aorta is normal in size and caliber. There are atheromatous wall calcification of the aorta, its branches, iliac arteries, and both lower limb arteries. There is no aneurysm or dissection. There is no stenosis or occlusion. The abdominal aortic branches, viz., the celiac and superior mesenteric arteries, are normal in caliber. There is no stenosis or occlusion. The angle between superior mesenteric artery and aorta is normal. Bilateral renal arteries are normal in caliber. There is no stenosis or occlusion. The inferior mesenteric arteries are normal in caliber. Bifurcation morphology is normal. There is no stenosis or occlusion. The bilateral common iliac arteries are normal in caliber. No stenosis or occlusion. The bilateral internal iliac arteries are normal; there is no stenosis or occlusion. Short segment stenosis of the proximal segment of both external iliac arteries with about 60-70% luminal narrowing on the right and 70-80% luminal narrowing on the left. Narrow caliber flow in bilateral superficial femoral arteries. Short segment stenosis of the left distal superficial femoral artery. Collateralized narrow caliber flow in the left popliteal, left peroneal, and left anterior tibial artery. Narrow caliber flow in the right popliteal, right peroneal, and right anterior tibial artery. No demonstrable flow in bilateral posterior tibial arteries. Within the abdomen and pelvis, multiple mon-enhancing hypodense cystic lesions in all segments of the liver ??? cysts; bilateral renal cortical cysts, the largest on the right side measures 3.3 x 3.5 cm and on the left measures 1.0 x 1.0 cm; gallbladder, pancreas, spleen, and adrenal glands are within normal limits; bowel loops are normal in caliber without evidence of obstruction, ileus, or bowel wall thickening, and the appendix is normal; and urinary bladder, pelvic organs appear normal in caliber. The included chest reveals subpleural ground glassing with interseptal thickening in both lower lobes. There is multilevel moderate degenerative spondylosis of the spine. IMPRESSION: Atheromatous wall calcification of the aorta, its branches, iliac arteries, and both lower limb arteries with short segment stenosis of bilateral external iliac arteries, left distal superficial femoral artery with narrow caliber flow in bilateral superficial femoral arteries, popliteal, anterior tibial and peroneal arteries ??? moderate peripheral vascular disease. /Hart DICTATED BY: DMITRIY BARNETT MD DATE: 02/11/251505 ELECTRONICALLY SIGNED BY: DMITRIY BARNETT MD DATE: 02/11/251505 [address] [address] IMAGING REPORT Signed PATIENT: VLAD SANTOS MR#: [id number] : 1955 SEX: F AGE: 70 LOCATION: EDHIP ORDER 6 STATUS: ADM IN REPORT#: [id number] SERVICE 4 REASON: numbness to LLE, flow evaluation ORDERING PHYSICIAN: ERIK GALAVIZ MD PROCEDURE: ART B LE - US ARTERIAL BILAT LOW EXT DUPL EXAM: US Duplex Bilateral Lower Extremity Arteries CLINICAL HISTORY: Numbness in the left lower extremity, flow evaluation TECHNIQUE: Real-time ultrasound scan of the arteries of the bilateral lower extremities with 2-D antonio scale, color Doppler flow, and spectral waveform analysis. COMPARISON: None provided. FINDINGS: RIGHT LOWER EXTREMITY: Common Femoral Artery (DIRECTOR OF ACCREDITATION): PSV 96 cm/s, monophasic waveform. Patent. Superficial Femoral Artery (SFA) Proximal: PSV 102 cm/s, monophasic waveform. Patent. SFA Mid: PSV 54 cm/s, monophasic waveform. Patent. SFA Distal: PSV 189 cm/s, monophasic waveform with velocity elevation suggesting approximately 20???49% stenosis. Popliteal Artery (POP A Prox): PSV 62 cm/s, monophasic waveform. Popliteal Artery (POP A Dist): PSV 47 cm/s, monophasic waveform. Posterior Tibial Artery (LINE HELPER): No flow detected. Anterior Tibial Artery (EDELMIRA): Collateral flow noted with PSV 20 cm/s. Monophasic waveform. Dorsalis Pedis Artery (DPA): No flow detected. LEFT LOWER EXTREMITY: Common Femoral Artery (DIRECTOR OF ACCREDITATION): PSV 135 cm/s, triphasic waveform. Patent. Superficial Femoral Artery (SFA) Proximal: PSV 36 cm/s, monophasic waveform. SFA Mid: PSV 41 cm/s, monophasic waveform. SFA Distal: PSV 9 cm/s, monophasic waveform, markedly decreased flow. Popliteal Artery (POP A Prox): PSV 79 cm/s, monophasic waveform. Popliteal Artery (POP A Dist): PSV 64 cm/s, monophasic waveform. Posterior Tibial Artery (LINE HELPER): No flow detected. Anterior Tibial Artery (EDELMIRA): No flow detected. Dorsalis Pedis Artery (DPA): No flow detected. IMPRESSION: Diffuse peripheral vascular disease bilaterally. Right: Mild stenosis (20???49%) at right distal SFA. There is no flow within the right posterior tibial artery. Positive flow in the collateral around this area. No flow is detected within the dorsalis pedis artery. Left: Diminished flow in the left distal superficial femoral artery. No flow is evident within the left posterior tibial, anterior tibial, and dorsalis pedis arteries. Recommend a CTA runoff for further evaluation. /Hart DICTATED BY: JAMEY HI Jr., MD DATE: 02/10/25 0603 ASSESSMENT: Peripheral vascular disease Leukocytosis POA AKA Htn Grade diastolic heart failure Hyperlipidemia Fibromyalgia PLAN: Peripheral vascular disease * Duplex ultrasound revealed bilateral peripheral vascular disease * Recommended CT angiography for the for further evaluation * Cardiology consultation placed and waiting for the recommendations * Since smoking is a risk factor advised for smoking cessation * Nicotine patch placed * CT angio [place] of abdominal aorta with runoff revealed moderate peripheral vascular disease * Dr. Velarde is on the board * Initially planned for discharge, but after Dr. Velarde spoke to the patient she agrees for procedure. Leukocytosis POA: * WBC 12.4 high to 11.5 Htn: * On torsemide 20 mg+ [id number] mg+ carvedilol 6.25 mg ATTESTATION BY PHYSICIAN I have seen and examined the patient. I reviewed the documentation, medical decision making, and treatment plan as noted by the resident physician above. I agree with the findings and plan of care. KIRSTEN ROMERO MD, HARSHA MD Feb 11, 2025 18:48
--- NOTE | 2025-02-11 20:52 | NUR ---
ROUNDS PATIENT IS AWAKE ON HER CELL PHONE IS AAOX4, NO C/O PAIN OR DISCOMFORT AT THIS TIME SCHEDULED MEDICATIONS ADMINISTERED, BED LOCKED AND IN LOW POSITION CALL LIGHT IS WITH IN REACH.
[2025-02-11] MEDS: ENOXAPARIN SODIUM 100 MG/1 ML SQ SCH (20:57)
[2025-02-12] VITALS (11 sets, daily range): BP systolic 108–150; BP diastolic 42–99; PULSE 46–83; RESP 16–20; TEMP 97.7–98.4; O2SAT 94–95
[2025-02-12 04:49] LABS: NUCLEATED RED BLOOD CELLS 0.0 % (0.0-0.19); PLATELET COUNT (AUTO) 492.0 K/uL (130-400); RED BLOOD CELL COUNT(AUTO) 4.29 MIL/uL (4.00-5.50); RED CELL DISTRIBUTION WIDTH 18.1 % (11.0-15.5); WHITE BLOOD COUNT (AUTO) 11.2 K/uL (4.8-10.8)
[2025-02-12 05:05] LABS: ASPARTATE AMINOTRANSFERASE 12.0 U/L (10-37); CREATININE 1.5 mg/dL (0.5-1.0); GLOMERULAR FILTR. RATE CALC 37.0 mL/min (>90); GLUCOSE,RANDOM 119.0 mg/dL (70-105); SODIUM SERUM 135.0 mmol/L (136-145); TOTAL PROTEIN, SERUM 6.9 g/dL (6.0-8.3); UREA NITROGEN, BLOOD 36.0 mg/dL (7-18)
--- NOTE | 2025-02-12 15:34 | PN ---
[facility] PROGRESS NOTE Date of Service: Feb 12, 2025 Time of Service: 15:33 SUBJECTIVE: Ms. Luna is a 70-year-old female that was seen and examined today on 02/10/2025. Patient is a good historian of personal health Patient reports that she came to the emergency department with a chief complaint of lower extremity pain. Onset is chronic however pain has been worse over the last three days. Location is left lower extremity. Duration is on and off. Character is described as sharp, tingling, numbness. Symptoms are aggravated with walking. There was no alleviating factors. Patient denies any associated chest pain or shortness and breath. Patient reports that she has been eating a revascularization for some time to her left lower extremity and knows that she has poor circulation to left lower extremity. Today in the emergency department WBCs 12.4, creatinine 1.2, urinalysis unremarkable, chest x-ray unremarkable, CT of the head is unremarkable, arterial ultrasound is pending radiology interpreta tion however preliminary report shows monophasic waveforms to the left lower extremity. For this reason emergency room physician recommended that patient be admitted so she could be evaluated by Cardiology Service for possible revascularization. 02/10/2025: Patient is seen and evaluated in the room ED 11. Cardiology consultation placed, waiting for their recommendations. Urinalysis revealed hyaline casts. Patient is a smoker, gave nicotine patch and advised about smoking cessation. Patient takes Repatha once a week. Pending CT angio abdominal aorta with runoff. 02/11/2025: Patient is seen and evaluated in the room 330. CT angio abdominal aorta with runoff revealed atheromatous wall calcification of the aorta and its branches and both lower limb arteries with short-segment stenosis of bilateral external iliac arteries indicating moderate peripheral vascular disease. Since unable to get update from the event designer, planned for discharge. But Dr. Velarde spoke with the patient, and planned to do procedure on Friday. Patient agreed to this. 02/12/2025: Patient was seen and evaluated in room 330. Patient had no acute events overnight however admitted to having pain and numbness like feeling in bilateral lower extremities more on the left side. Patient was pending intervention to the left leg on Friday by Dr. Barahona. Nurse informed me that patient had her home medication, Entresto to be taken daily. We will resume the medication. We will appreciate Cardiology input on continuation of the same. REVIEW OF SYSTEMS CONSTITUTIONAL: Denies fevers, chills, or night sweats. No unintentional weight loss reported. NEUROLOGICAL: Denies headache, amaurosis fugax, motor weakness, sensory deficit, vertigo/spinning sensation, gait abnormalities, or tremors. ENT: No hearing loss, otalgia, otorrhea, rhinitis, rhinorrhea, hoarseness, or sore throat. CARDIOVASCULAR: Denies any exertional angina, dyspnea on exertion, orthopnea, paroxysmal nocturnal dyspnea, palpitations, life-threatening arrhythmias, admits to claudication in both lower limbs. PULMONARY: Denies any shortness of breath, cough, phlegm/sputum, hemoptysis, pleuritic chest pain. SLEEP: Denies morning headaches, daytime somnolence or napping. Denies difficulty falling asleep, staying asleep, waking from sleep. Denies knowledge of snoring. GASTROINTESTINAL: Denies any type of dysphagia to either liquids or solids. Denies nausea, vomiting, pyrosis, early satiety, abdominal pain, diarrhea, constipation, or changes in stool consistency or caliber. Denies coffee-ground emesis, hematemesis, hematochezia, or melanotic stools. GENITOURINARY: Denies frequency, urgency, nocturia, hematuria or incontinence (Storage/Irritative symptoms.) Low urinary stream, straining to void, urinary intermittency or hesitancy, splitting of the voiding stream, terminal dribbling. ENDOCRINOLOGIC: Denies polyuria, polydipsia, polyphagia or heat/cold intolerances. HEMATOLOGIC: Denies thrombophilia/previous clots, or coagulopathy/bleeding disorders. ONCOLOGIC: Denies personal history of malignancy. DERMATOLOGIC: Denies rashes or pruritus. PSYCHIATRIC: Denies any suicidal or homicidal ideation. Denies hallucinations. PHYSICAL EXAM GENERAL APPEARANCE: The patient is awake, alert, and oriented, in no acute cardiopulmonary distress. NEUROLOGICAL: Cranial nerves II-XII grossly intact. Motor is 5/5 in bilateral upper and lower extremities proximal to distal. No sensory deficits. HEENT: Face is symmetric. Pupils are equal and reactive. Extraocular movements are intact. NECK: Supple. No JVD. No thyromegaly. No submental, submandibular, pre- /postauricular, occipital or supraclavicular lymphadenopathy. CHEST: Normal chest expansion. No Telemetry. LUNGS: Absence of any rales, rhonchi or any wheezing. CARDIOVASCULAR: Regular. S1 and S2 normal. No appreciable rubs, murmurs or gallops. ABDOMEN: Soft, nontender, and nondistended. There is no rebound, voluntary guarding, or rigidity. : Deferred. No Blanca. EXTREMITIES: Non-edematous and not cyanotic. No clubbing. No hair, Cold, and diminished pulses SKIN: No skin breakdown. Vital Signs (last 8hr) Date Time Temp Pulse Resp B/P (MAP) Pulse Ox O2 Delivery O2 Flow Rate FiO2 02/12/25 12:00 98.1 83 17 116/76 95 Room Air 02/12/25 10:36 75 18 N/A Room Air 21 02/12/25 09:21 150/99 02/12/25 08:00 97.9 74 17 150/99 95 Room Air 02/12/25 08:00 95 Room Air* 0 21 LABS: Laboratory: Test 02/12/25 04:30 02/11/25 03:11 Range/Units White Blood Count 11.2 H 4.8-10.8 K/uL Red Blood Count 4.29 4.00-5.50 MIL/uL Hemoglobin 10.9 L 12.0-16.0 g/dL Hematocrit 34.2 L 36-48 % Mean Corpuscular Volume 79.7 79-99 fL Mean Corpuscular Hemoglobin 25.4 L 27.0-33.0 pg Mean Corpuscular Hemoglobin Concent 31.9 L 32.0-36.0 g/dL Red Cell Distribution Width 18.1 H 11.0-15.5 % Platelet Count 492 H 130-400 K/uL Mean Platelet Volume 9.1 7.5-10.5 fL Nucleated Red Blood Cells 0.0 0.0-0.19 % Sodium Level 135 L 136-145 mmol/L Potassium Level 3.7 3.5-5.1 mmol/L Chloride Level 97 L 101-111 mmol/L Carbon Dioxide Level 28 21-32 mmol/L Blood Urea Nitrogen 36 H 7-18 mg/dL Creatinine 1.5 H 0.5-1.0 mg/dL Glomerular Filtration Rate Calc 37 >90 mL/min Random Glucose 119 H 70-105 mg/dL Total Calcium 9.3 8.5-10.1 mg/dL Total Bilirubin 0.1 L 0.2-1.0 mg/dL Aspartate Amino Transf (AST/SGOT) 12 10-37 U/L Alanine Aminotransferase (ALT/SGPT) 13 12-78 U/L Alkaline Phosphatase 63 50-136 U/L Total Protein 6.9 6.0-8.3 g/dL Albumin 3.2 L 3.5-5.0 g/dL Immature Granulocyte % (Auto) 0.3 0-1 % Neutrophils (%) (Auto) 46.0 40.0-77.0 % Lymphocytes (%) (Auto) 45.6 21.0-51.0 % Monocytes (%) (Auto) 6.3 3.0-13.0 % Eosinophils (%) (Auto) 1.4 0.0-8.0 % Basophils (%) (Auto) 0.4 0.0-5.0 % Neutrophils # (Auto) 5.3 1.8-7.7 K/uL Lymphocytes # (Auto) 5.2 H 1.0-4.8 K/uL Monocytes # (Auto) 0.7 0.1-1.0 K/uL Eosinophils # (Auto) 0.16 0.00-0.70 K/uL Basophils # (Auto) 0.05 0.00-0.20 K/uL Absolute Immature Granulocyte (auto 0.04 0-1 K/uL Prothrombin Time 10.8 9.6-11.6 SEC Prothromb Time International Ratio 1.02 0.85-1.15 Activated Partial Thromboplast Time 25.6 L 26.3-35.5 SEC Phosphorus Level 4.5 2.5-4.9 mg/dL Magnesium Level 1.70 L 1.80-2.40 mg/dL Current Medications Medications (Trade) Dose Ordered Sig/Bandar Route PRN Reason Start Time Stop Time Status Last Admin Dose Admin Acetaminophen (TYLenol 325MG TAB) 650 mg Q6H PRN PO TEMPERATURE GREATER THAN 101.5 02/10/25 04:00 03/12/25 03:59 Albuterol (DUOneb) 1 UDVIAL [id number] IH 02/10/25 06:00 03/12/25 05:59 02/12/25 07:27 1 UDVIAL Aspirin (Aspirin 81mg Ec Tab) 81 mg DAILY PO 02/10/25 09:00 03/12/25 08:59 02/12/25 09:21 81 MG Budesonide (Pulmicort 0.5 Mg/2ml) 0.5 mg BIDRESP IH 02/10/25 06:00 03/12/25 05:59 02/12/25 07:27 0.5 MG Carvedilol (Coreg 6.25MG) 6.25 mg BID PO 02/10/25 09:00 03/12/25 08:59 02/12/25 09:21 6.25 MG Duloxetine HCl (CymbALTA 30 mg CAP) 60 mg BID PO 02/10/25 09:00 03/12/25 08:59 02/12/25 09:21 60 MG Enoxaparin Sodium (Lovenox) 100 mg BID SQ 02/11/25 21:00 03/13/25 20:59 02/12/25 09:20 100 MG Heparin Sodium (Porcine) (HEParin 5,000 UNIT VIAL) 5,000 unit Q12H SQ 02/10/25 09:00 02/11/25 18:21 DC Hydralazine HCl (APRESOLine 20MG INJ) 10 mg Q6H PRN IV For:SBP above 160;DBP above 90 02/10/25 04:00 03/12/25 03:59 Hydromorphone HCl (DiLAUDid 0.5MG INJ) 0.25 mg Q4H PRN IVP SEVERE PAIN (7-10) 02/10/25 04:00 02/15/25 03:59 02/12/25 09:54 0.25 MG Lactated Ringer's 1,000 ml @ 75 mls/hr [id number] IV 02/10/25 04:00 02/11/25 11:42 DC 02/10/25 11:04 75 MLS/HR Lactated Ringer's 1,000 ml @ 75 mls/hr [id number] IV 02/10/25 04:30 03/12/25 04:29 02/10/25 04:42 75 MLS/HR Lactulose (Constulose 20gm/ 30ml Udcup) 20 gm BID PRN PO CONSTIPATION 02/10/25 04:00 03/12/25 03:59 Magnesium Sulfate 50 ml @ 0 mls/hr PROTOCOL PRN IV PROTOCOL 02/11/25 12:00 03/13/25 11:59 02/11/25 17:55 25 MLS/HR Nicotine (Nicoderm) 14 mg DAILY TD 02/11/25 09:00 03/13/25 08:59 02/12/25 09:22 14 MG Ondansetron HCl (zoFRAN 4MG INJ) 4 mg Q6H PRN IV NAUSEA/VOMITING 02/10/25 04:00 03/12/25 03:59 Pantoprazole Sodium (PROTonix 40MG INJ) 40 mg DAILY IV 02/10/25 09:00 03/12/25 08:59 02/12/25 09:21 40 MG Potassium Chloride 100 ml @ 100 mls/hr AD PRN IV POTASSIUM PROTOCOL 02/11/25 12:00 03/13/25 11:59 Potassium Chloride (K-Dur/Klor-Con 20meq) 20 meq AD PRN PO POTASSIUM PROTOCOL 02/11/25 12:00 03/13/25 11:59 02/11/25 17:54 20 MEQ Potassium Chloride (KCl 10% Elixir 20meq/15ml) 20 meq AD PRN PO POTASSIUM PROTOCOL 02/11/25 12:00 03/13/25 11:59 Sacubitril/ Valsartan (Entresto 97 Mg-103 Mg Tablet) 1 each BID PO 02/12/25 21:00 03/14/25 20:59 Spironolactone (Aldactone 25mg) 25 mg DAILY PO 02/10/25 09:00 03/12/25 08:59 02/12/25 09:21 25 MG Torsemide (Demadex) 20 mg DAILY PO 02/10/25 09:00 03/12/25 08:59 02/12/25 09:53 20 MG DIAGNOSTICS / RADIOLOGY: [ ] ASSESSMENT: Peripheral arterial disease, POA Chronic systolic/diastolic CHF, LVEF as low as 16% in 2020, improved to 60-65% in 2023 Leukocytosis POA Acute kidney injury POA Hypertension Hyperlipidemia Fibromyalgia Type 2 diabetes mellitus Intolerance of statins (myalgias), flecanide, neurontin, gabapentin, SGLT2i PLAN: Peripheral arterial disease * Duplex ultrasound revealed bilateral peripheral vascular disease * CT angiography shows short-segment stenosis of bilateral external iliac arteries, left distal superficial femoral artery with a narrow caliber flow and bilateral superficial femoral arteries, popliteal, anterior tibial and peroneal arteries consistent with moderate peripheral vascular disease. * Cardiology consultation by Dr. Lemus recommended angioplasty however Dr. Barahona we will consider bypass on Friday * Advised for smoking cessation and Nicotine patch placed * Continue aspirin 81 and Lovenox 100 mg b.i.d. as per Cardiology recommendations * Initially planned for discharge, but after Dr. Velarde spoke to the patient she agrees for procedure. Chronic systolic/diastolic CHF, LVEF as low as 16% in 2019, improved to 60-65% in 2023 * Patient's last 2D echo performed in 2023 showed EF of 60-65% * Continue torsemide 20 mg, spironolactone 25 mg, carvedilol 6.25 mg and Entresto * Daily weights and vitals q.4 * Avoid fluid overload Acute kidney injury, most likely contrast nephropathy * Patient creatinine today is 1.5, 1.1 yesterday * Status post CT angiography with contrast * Continue IV Ringer's lactate for hydration * Monitor BNP tomorrow * Avoid nephrotoxic agents GI prophylaxis with Protonix 40 mg and DVT prophylaxis with therapeutic Lovenox 100 mg b.i.d. ATTESTATION BY PHYSICIAN I have seen and examined the patient. I reviewed the documentation, medical decision making, and treatment plan as noted by the resident physician above. I agree with the findings and plan of care. KIRSTEN ROMERO MD, HARSHAVARDHA MD Feb 12, 2025 15:34
--- NOTE | 2025-02-12 17:23 | PN ---
The patient is here with peripheral arterial disease. She was evaluated by Dr. Lemus. Her CTA runoff study on 02/10 revealed the following: "There are short-segment stenosis of bilateral external iliac arteries measuring 60-70% right, 70% on the left, narrow caliber flow bilateral SFA, with short- segment stenosis of the left distal SFA, collateralization in the left popliteal, peroneal and left. There is also narrow caliber flow in the right popliteal, peroneal and AT. No flow in bilateral posterior tibialis arteries" with the following recommendations: "invasive peripheral angiography to address the inflow disease of the left external iliac artery and possibly the SFA, with further evaluation possibly by intravascular ultrasound of the right external iliac or and hold catheter pullback gradient to assess for if this stenosis is significant. Improving the inflow may be feasible with endovascular approach, with popliteal/infrapopliteal surgically depending on results." Today, the patient continues to complain of bilateral foot numbness left greater than right with burning pains suggestive of neurogenic pain while the feet poorly perfused, she does not present with critical limb ischemia. She is also on Lovenox. Plan: 1. Continue Lovenox 2. We will proceed with peripheral angiography with possible intervention on Friday. Vitals/Labs Vital Signs Date Time Temp Pulse Resp B/P (MAP) Pulse Ox O2 Delivery O2 Flow Rate FiO2 02/12/25 12:00 98.1 83 17 116/76 95 Room Air 02/12/25 10:36 21 02/12/25 08:00 0 Laboratory Tests 02/12/25 04:30 DAVID SARAVIA MD Feb 12, 2025 17:23
[2025-02-12] MEDS: SACUBITRIL/VALSARTAN 1 EACH TABLET PO SCH (21:20)
[2025-02-13] VITALS (15 sets, daily range): BP systolic 94–149; BP diastolic 48–60; PULSE 45–86; RESP 18; TEMP 96.2–98.5; O2SAT 95–98
[2025-02-13 04:29] LABS: NUCLEATED RED BLOOD CELLS 0.0 % (0.0-0.19); PLATELET COUNT (AUTO) 463.0 K/uL (130-400); RED BLOOD CELL COUNT(AUTO) 4.04 MIL/uL (4.00-5.50); RED CELL DISTRIBUTION WIDTH 18.0 % (11.0-15.5); WHITE BLOOD COUNT (AUTO) 11.4 K/uL (4.8-10.8)
[2025-02-13 05:02] LABS: CREATININE 1.3 mg/dL (0.5-1.0); GLOMERULAR FILTR. RATE CALC 45.0 mL/min (>90); GLUCOSE,RANDOM 102.0 mg/dL (70-105); SODIUM SERUM 137.0 mmol/L (136-145); UREA NITROGEN, BLOOD 38.0 mg/dL (7-18)
--- NOTE | 2025-02-13 08:55 | NUR ---
BP MEDICATIONS MORNING BP MEDICATIONS AND SPIRONOLACTONE HELD DUE TO LOW BP 116/50 TO PREVENT HYPOTENSIVE EPISODE.
--- NOTE | 2025-02-13 13:04 | PN ---
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 She was admitted 02/10/2025 to persistent left foot numbness and pain. She underwent arterial Doppler of the lower extremities followed by CTA of the abdominal aorta with runoffs showing as wall calcification of the aorta, its branches iliac arteries in both lower limb arteries with short segment stenosis of bilateral external iliac arteries, left distal SFA with narrow caliber flow in bilateral superficial femoral arteries, popliteal, anterior tibial and peroneal arteries. Currently in sinus rhythm with frequent PACs, heart rates in the 60s to 80s. Her most recent blood pressure is 116/50. An 11.4, hemoglobin 10.3, hematocrit 32.8, platelets 463, creatinine 1.3, potassium 4.0. Blood cultures x2 02/10/2025 are negative after three days. She reports numbness to her left foot which feels better with pain her foot off of the side of the bed. Her symptoms are unchanged since the time of admission. On exam, she is in no acute distress, regular rate and rhythm, frequent ectopy, lungs are clear to auscultation bilaterally. Assessment: 1. Peripheral arterial disease is documented above. 2. Left lower extremity numbness. Plan: 1. She presented with persistent numbness to her right lower leg and foot which is suggested of a neurogenic pain, not critical limb ischemia. Nevertheless, she is pending for referral angiogram of bilateral lower extremities due to known peripheral arterial disease. 2. The procedure is tentatively scheduled for tomorrow. We will make NPO after midnight. Vitals/Labs Vital Signs Date Time Temp Pulse Resp B/P (MAP) Pulse Ox O2 Delivery O2 Flow Rate FiO2 02/13/25 12:00 97.2 86 18 112/51 98 Room Air 02/13/25 07:08 21 02/12/25 20:19 0 Laboratory Tests 02/13/25 04:12 NASIM LOPEZ PAC Feb 13, 2025 13:04
--- NOTE | 2025-02-13 20:01 | CONS ---
DATE OF SERVICE: 02/12/2025 TIME: 11:00 a.m. HISTORY OF PRESENT ILLNESS: The patient is a 70-year-old female who presented with intermittent claudication in her left lower extremity. Vascular Surgery was consulted. PHYSICAL EXAMINATION: NEUROLOGIC: Alert and oriented. CARDIOVASCULAR: S1 and S2. Regular rate and rhythm. RESPIRATORY: Clear to auscultation bilaterally. EXTREMITIES: Relatively warm all the way down to the ankles, but the feet are cold bilaterally. The pulses are weak bilaterally. ASSESSMENT AND PLAN: This is a 70-year-old female who has peripheral arterial disease. CTAs show bilateral common iliac artery stenosis with left greater than 70%. Vascular Surgery was consulted. I believe we need to do a formal angiogram and address the iliac artery stenosis with stents. Once the inflow has been established, we can assess her symptoms and if there is clinical improvement, that will be all for her for now. I suspect in the future she will need some sort of lower extremity revascularization as well, but note if the stent in the iliac improves her symptoms. TID: [id number] RECEIPT: [id number]
--- NOTE | 2025-02-13 20:48 | PN ---
[facility] PROGRESS NOTE Date of Service: Feb 13, 2025 Time of Service: 20:41 SUBJECTIVE: Ms. Luna is a 70-year-old female that was seen and examined today on 02/10/2025. Patient is a good historian of personal health Patient reports that she came to the emergency department with a chief complaint of lower extremity pain. Onset is chronic however pain has been worse over the last three days. Location is left lower extremity. Duration is on and off. Character is described as sharp, tingling, numbness. Symptoms are aggravated with walking. There was no alleviating factors. Patient denies any associated chest pain or shortness and breath. Patient reports that she has been eating a revascularization for some time to her left lower extremity and knows that she has poor circulation to left lower extremity. Today in the emergency department WBCs 12.4, creatinine 1.2, urinalysis unremarkable, chest x-ray unremarkable, CT of the head is unremarkable, arterial ultrasound is pending radiology interpreta tion however preliminary report shows monophasic waveforms to the left lower extremity. For this reason emergency room physician recommended that patient be admitted so she could be evaluated by Cardiology Service for possible revascularization. 02/10/2025: Patient is seen and evaluated in the room ED 11. Cardiology consultation placed, waiting for their recommendations. Urinalysis revealed hyaline casts. Patient is a smoker, gave nicotine patch and advised about smoking cessation. Patient takes Repatha once a week. Pending CT angio abdominal aorta with runoff. 02/11/2025: Patient is seen and evaluated in the room 330. CT angio abdominal aorta with runoff revealed atheromatous wall calcification of the aorta and its branches and both lower limb arteries with short-segment stenosis of bilateral external iliac arteries indicating moderate peripheral vascular disease. Since unable to get update from the truck packer, planned for discharge. But Dr. Velarde spoke with the patient, and planned to do procedure on Friday. Patient agreed to this. 02/12/2025: Patient was seen and evaluated in room 330. Patient had no acute events overnight however admitted to having pain and numbness like feeling in bilateral lower extremities more on the left side. Patient was pending intervention to the left leg on Friday by Dr. Barahona. Nurse informed me that patient had her home medication, Entresto to be taken daily. We will resume the medication. We will appreciate Cardiology input on continuation of the same. 02/13/2025: Patient was seen and evaluated in the room 330. Dr. Velarde plan to do bypass graft. But forestry adviser want to do peripheral angiography with angioplasty. So finally agreed to go with the procedure by the forestry adviser. Placed on telemetry monitoring. REVIEW OF SYSTEMS CONSTITUTIONAL: Denies fevers, chills, or night sweats. No unintentional weight loss reported. NEUROLOGICAL: Denies headache, amaurosis fugax, motor weakness, sensory deficit, vertigo/spinning sensation, gait abnormalities, or tremors. ENT: No hearing loss, otalgia, otorrhea, rhinitis, rhinorrhea, hoarseness, or sore throat. CARDIOVASCULAR: Denies any exertional angina, dyspnea on exertion, orthopnea, paroxysmal nocturnal dyspnea, palpitations, life-threatening arrhythmias, admits to claudication in both lower limbs. PULMONARY: Denies any shortness of breath, cough, phlegm/sputum, hemoptysis, pleuritic chest pain. SLEEP: Denies morning headaches, daytime somnolence or napping. Denies difficulty falling asleep, staying asleep, waking from sleep. Denies knowledge of snoring. GASTROINTESTINAL: Denies any type of dysphagia to either liquids or solids. Denies nausea, vomiting, pyrosis, early satiety, abdominal pain, diarrhea, constipation, or changes in stool consistency or caliber. Denies coffee-ground emesis, hematemesis, hematochezia, or melanotic stools. GENITOURINARY: Denies frequency, urgency, nocturia, hematuria or incontinence (Storage/Irritative symptoms.) Low urinary stream, straining to void, urinary intermittency or hesitancy, splitting of the voiding stream, terminal dribbling. ENDOCRINOLOGIC: Denies polyuria, polydipsia, polyphagia or heat/cold intolerances. HEMATOLOGIC: Denies thrombophilia/previous clots, or coagulopathy/bleeding disorders. ONCOLOGIC: Denies personal history of malignancy. DERMATOLOGIC: Denies rashes or pruritus. PSYCHIATRIC: Denies any suicidal or homicidal ideation. Denies hallucinations. PHYSICAL EXAM GENERAL APPEARANCE: The patient is awake, alert, and oriented, in no acute cardiopulmonary distress. NEUROLOGICAL: Cranial nerves II-XII grossly intact. Motor is 5/5 in bilateral upper and lower extremities proximal to distal. No sensory deficits. HEENT: Face is symmetric. Pupils are equal and reactive. Extraocular movements are intact. NECK: Supple. No JVD. No thyromegaly. No submental, submandibular, pre- /postauricular, occipital or supraclavicular lymphadenopathy. CHEST: Normal chest expansion. No Telemetry. LUNGS: Absence of any rales, rhonchi or any wheezing. CARDIOVASCULAR: Regular. S1 and S2 normal. No appreciable rubs, murmurs or gallops. ABDOMEN: Soft, nontender, and nondistended. There is no rebound, voluntary guarding, or rigidity. : Deferred. No Blanca. EXTREMITIES: Non-edematous and not cyanotic. No clubbing. No hair, Cold, and diminished pulses SKIN: No skin breakdown. Vital Signs (last 8hr) Date Time Temp Pulse Resp B/P (MAP) Pulse Ox O2 Delivery O2 Flow Rate FiO2 02/13/25 20:28 116/48 02/13/25 18:57 55 18 N/A Room Air 21 02/13/25 18:55 55 18 02/13/25 16:00 97.2 77 18 149/60 98 Room Air LABS: Laboratory: Test 02/13/25 04:12 02/12/25 04:30 Range/Units White Blood Count 11.4 H 4.8-10.8 K/uL Red Blood Count 4.04 4.00-5.50 MIL/uL Hemoglobin 10.3 L 12.0-16.0 g/dL Hematocrit 32.8 L 36-48 % Mean Corpuscular Volume 81.2 79-99 fL Mean Corpuscular Hemoglobin 25.5 L 27.0-33.0 pg Mean Corpuscular Hemoglobin Concent 31.4 L 32.0-36.0 g/dL Red Cell Distribution Width 18.0 H 11.0-15.5 % Platelet Count 463 H 130-400 K/uL Mean Platelet Volume 9.1 7.5-10.5 fL Nucleated Red Blood Cells 0.0 0.0-0.19 % Sodium Level 137 136-145 mmol/L Potassium Level 4.0 3.5-5.1 mmol/L Chloride Level 101 101-111 mmol/L Carbon Dioxide Level 28 21-32 mmol/L Blood Urea Nitrogen 38 H 7-18 mg/dL Creatinine 1.3 H 0.5-1.0 mg/dL Glomerular Filtration Rate Calc 45 >90 mL/min Random Glucose 102 70-105 mg/dL Total Calcium 8.9 8.5-10.1 mg/dL Total Bilirubin 0.1 L 0.2-1.0 mg/dL Aspartate Amino Transf (AST/SGOT) 12 10-37 U/L Alanine Aminotransferase (ALT/SGPT) 13 12-78 U/L Alkaline Phosphatase 63 50-136 U/L Total Protein 6.9 6.0-8.3 g/dL Albumin 3.2 L 3.5-5.0 g/dL Current Medications Medications (Trade) Dose Ordered Sig/Bandar Route PRN Reason Start Time Stop Time Status Last Admin Dose Admin Acetaminophen (TYLenol 325MG TAB) 650 mg Q6H PRN PO TEMPERATURE GREATER THAN 101.5 02/10/25 04:00 03/12/25 03:59 Albuterol (DUOneb) 1 UDVIAL [id number] 02/10/25 06:00 03/12/25 05:59 02/13/25 18:55 1 UDVIAL Aspirin (Aspirin 81mg Ec Tab) 81 mg DAILY PO 02/10/25 09:00 03/12/25 08:59 02/13/25 08:51 81 MG Budesonide (Pulmicort 0.5 Mg/2ml) 0.5 mg BIDRESP 02/10/25 06:00 03/12/25 05:59 02/13/25 18:55 0.5 MG Carvedilol (Coreg 6.25MG) 6.25 mg BID PO 02/10/25 09:00 03/12/25 08:59 02/13/25 20:28 6.25 MG Duloxetine HCl (CymbALTA 30 mg CAP) 60 mg BID PO 02/10/25 09:00 03/12/25 08:59 02/13/25 20:28 60 MG Enoxaparin Sodium (Lovenox) 100 mg BID SQ 02/11/25 21:00 03/13/25 20:59 Future hold 02/13/25 20:27 100 MG Heparin Sodium (Porcine) (HEParin 5,000 UNIT VIAL) 5,000 unit Q12H SQ 02/10/25 09:00 02/11/25 18:21 DC Hydralazine HCl (APRESOLine 20MG INJ) 10 mg Q6H PRN IV For:SBP above 160;DBP above 90 02/10/25 04:00 03/12/25 03:59 Hydromorphone HCl (DiLAUDid 0.5MG INJ) 0.25 mg Q4H PRN IVP SEVERE PAIN (7-10) 02/10/25 04:00 02/15/25 03:59 02/13/25 19:28 0.25 MG Lactated Ringer's 1,000 ml @ 75 mls/hr [id number] IV 02/10/25 04:00 02/11/25 11:42 DC 02/10/25 11:04 75 MLS/HR Lactated Ringer's 1,000 ml @ 75 mls/hr [id number] IV 02/10/25 04:30 03/12/25 04:29 02/10/25 04:42 75 MLS/HR Lactulose (Constulose 20gm/ 30ml Udcup) 20 gm BID PRN PO CONSTIPATION 02/10/25 04:00 03/12/25 03:59 Magnesium Sulfate 50 ml @ 0 mls/hr PROTOCOL PRN IV PROTOCOL 02/11/25 12:00 03/13/25 11:59 02/11/25 17:55 25 MLS/HR Nicotine (Nicoderm) 14 mg DAILY TD 02/11/25 09:00 03/13/25 08:59 02/13/25 08:53 14 MG Ondansetron HCl (zoFRAN 4MG INJ) 4 mg Q6H PRN IV NAUSEA/VOMITING 02/10/25 04:00 03/12/25 03:59 Pantoprazole Sodium (PROTonix 40MG INJ) 40 mg DAILY IV 02/10/25 09:00 03/12/25 08:59 02/13/25 08:53 40 MG Potassium Chloride 100 ml @ 100 mls/hr AD PRN IV POTASSIUM PROTOCOL 02/11/25 12:00 03/13/25 11:59 Potassium Chloride (K-Dur/Klor-Con 20meq) 20 meq AD PRN PO POTASSIUM PROTOCOL 02/11/25 12:00 03/13/25 11:59 02/12/25 19:54 20 MEQ Potassium Chloride (KCl 10% Elixir 20meq/15ml) 20 meq AD PRN PO POTASSIUM PROTOCOL 02/11/25 12:00 03/13/25 11:59 Sacubitril/ Valsartan (Entresto 97 Mg-103 Mg Tablet) 1 each BID PO 02/12/25 21:00 03/14/25 20:59 02/13/25 20:28 1 EACH Spironolactone (Aldactone 25mg) 25 mg DAILY PO 02/10/25 09:00 03/12/25 08:59 02/12/25 09:21 25 MG Torsemide (Demadex) 20 mg DAILY PO 02/10/25 09:00 03/12/25 08:59 02/12/25 09:53 20 MG DIAGNOSTICS / RADIOLOGY: [ ] ASSESSMENT: Peripheral arterial disease, POA Chronic systolic/diastolic CHF, LVEF as low as 16% in 2019, improved to 60-65% in 2023 Leukocytosis POA Acute kidney injury POA Hypertension Hyperlipidemia Fibromyalgia Type 2 diabetes mellitus Intolerance of statins (myalgias), flecanide, neurontin, gabapentin, SGLT2i PLAN: Peripheral arterial disease * Duplex ultrasound revealed bilateral peripheral vascular disease * CT angiography shows short-segment stenosis of bilateral external iliac arteries, left distal superficial femoral artery with a narrow caliber flow and bilateral superficial femoral arteries, popliteal, anterior tibial and peroneal arteries consistent with moderate peripheral vascular disease. * Cardiology consultation by Dr. Lemus recommended angioplasty however Dr. Barahona we will consider bypass on Friday * Advised for smoking cessation and Nicotine patch placed * Continue aspirin 81 and Lovenox 100 mg b.i.d. as per Cardiology recommendations * Initially planned for discharge, but after Dr. Velarde spoke to the patient she agrees for procedure. * Dr. Velarde plan to do bypass graft * . But forestry adviser want to do peripheral angiography with angioplasty. * So finally agreed to go with the procedure by the forestry adviser. * Placed on telemetry monitoring. Chronic systolic/diastolic CHF, LVEF as low as 16% in 2019, improved to 60-65% in 2023 * Patient's last 2D echo performed in 2023 showed EF of 60-65% * Continue torsemide 20 mg, spironolactone 25 mg, carvedilol 6.25 mg and Entresto * Daily weights and vitals q.4 * Avoid fluid overload * Heart failure medications continuing. Acute kidney injury, most likely contrast nephropathy * Patient creatinine today is 1.5, 1.1 yesterday * Status post CT angiography with contrast * Continue IV Ringer's lactate for hydration * Monitor BNP tomorrow * Avoid nephrotoxic agents GI prophylaxis with Protonix 40 mg and DVT prophylaxis with therapeutic Lovenox 100 mg b.i.d. ATTESTATION BY PHYSICIAN I have seen and examined the patient. I reviewed the documentation, medical decision making, and treatment plan as noted by the resident physician above. I agree with the findings and plan of care. KIRSETN ROMERO MD, HARSHA MD Feb 13, 2025 20:48
[2025-02-14] VITALS (17 sets, daily range): BP systolic 101–137; BP diastolic 48–72; PULSE 57–86; RESP 18–24; TEMP 97.3–98.8; O2SAT 96–99
[2025-02-14 04:42] LABS: NUCLEATED RED BLOOD CELLS 0.0 % (0.0-0.19); PLATELET COUNT (AUTO) 499.0 K/uL (130-400); RED BLOOD CELL COUNT(AUTO) 3.9 MIL/uL (4.00-5.50); RED CELL DISTRIBUTION WIDTH 18.2 % (11.0-15.5); WHITE BLOOD COUNT (AUTO) 11.6 K/uL (4.8-10.8)
[2025-02-14 05:06] LABS: CREATINE KINASE, TOTAL 28.0 U/L (21-232); CREATININE 1.3 mg/dL (0.5-1.0); GLOMERULAR FILTR. RATE CALC 45.0 mL/min (>90); GLUCOSE,RANDOM 111.0 mg/dL (70-105); INR 0.96 (0.85-1.15); SODIUM SERUM 136.0 mmol/L (136-145); UREA NITROGEN, BLOOD 32.0 mg/dL (7-18)
[2025-02-14] MEDS ORDERED: 0.9%NACL 1000ML 1,000 ML IV SCH (12:00)
[2025-02-14] MEDS: 0.9%NACL 1000ML 1,000 ML IV SCH (12:18)
--- NOTE | 2025-02-14 13:31 | PN ---
[facility] PROGRESS NOTE Date of Service: Feb 14, 2025 Time of Service: 13:30 SUBJECTIVE: Ms. Luna is a 70-year-old female that was seen and examined today on 02/10/2025. Patient is a good historian of personal health Patient reports that she came to the emergency department with a chief complaint of lower extremity pain. Onset is chronic however pain has been worse over the last three days. Location is left lower extremity. Duration is on and off. Character is described as sharp, tingling, numbness. Symptoms are aggravated with walking. There was no alleviating factors. Patient denies any associated chest pain or shortness and breath. Patient reports that she has been eating a revascularization for some time to her left lower extremity and knows that she has poor circulation to left lower extremity. Today in the emergency department WBCs 12.4, creatinine 1.2, urinalysis unremarkable, chest x-ray unremarkable, CT of the head is unremarkable, arterial ultrasound is pending radiology interpret ation however preliminary report shows monophasic waveforms to the left lower extremity. For this reason emergency room physician recommended that patient be admitted so she could be evaluated by Cardiology Service for possible revascularization. 02/10/2025: Patient is seen and evaluated in the room ED 11. Cardiology consultation placed, waiting for their recommendations. Urinalysis revealed hyaline casts. Patient is a smoker, gave nicotine patch and advised about smoking cessation. Patient takes Repatha once a week. Pending CT angio abdominal aorta with runoff. 02/11/2025: Patient is seen and evaluated in the room 330. CT angio abdominal aorta with runoff revealed atheromatous wall calcification of the aorta and its branches and both lower limb arteries with short-segment stenosis of bilateral external iliac arteries indicating moderate peripheral vascular disease. Since unable to get update from the district customs director, planned for discharge. But Dr. Velarde spoke with the patient, and planned to do procedure on Friday. Patient agreed to this. 02/12/2025: Patient was seen and evaluated in room 330. Patient had no acute events overnight however admitted to having pain and numbness like feeling in bilateral lower extremities more on the left side. Patient was pending intervention to the left leg on Friday by Dr. Barahona. Nurse informed me that patient had her home medication, Entresto to be taken daily. We will resume the medication. We will appreciate Cardiology input on continuation of the same. 02/13/2025: Patient was seen and evaluated in the room 330. Dr. Velarde plan to do bypass graft. But an/ssn 2 4 operator want to do peripheral angiography with angioplasty. So finally agreed to go with the procedure by the an/ssn 2 4 operator. Placed on telemetry monitoring. 02/14/2025: Patient was seen and evaluated at bedside. She was scheduled to undergo peripheral angiography today but it has been deferred till tomorrow as per Dr. Calvillo. She has been started on heart healthy diet and there is a plan to keep her NPO at midnight for possible procedure tomorrow. Patient complained of severe pain in her left leg and stated that pain is continuous and sometime it decreases when she bends the leg down. REVIEW OF SYSTEMS CONSTITUTIONAL: Denies fevers, chills, or night sweats. No unintentional weight loss reported. NEUROLOGICAL: Denies headache, amaurosis fugax, motor weakness, sensory deficit, vertigo/spinning sensation, gait abnormalities, or tremors. ENT: No hearing loss, otalgia, otorrhea, rhinitis, rhinorrhea, hoarseness, or sore throat. CARDIOVASCULAR: Pain in left leg during resting. admits to claudication in both lower limbs. PULMONARY: Denies any shortness of breath, cough, phlegm/sputum, hemoptysis, pleuritic chest pain. SLEEP: Denies morning headaches, daytime somnolence or napping. Denies di fficulty falling asleep, staying asleep, waking from sleep. Denies knowledge of snoring. GASTROINTESTINAL: Denies any type of dysphagia to either liquids or solids. Denies nausea, vomiting, pyrosis, early satiety, abdominal pain, diarrhea, constipation, or changes in stool consistency or caliber. Denies coffee-ground emesis, hematemesis, hematochezia, or melanotic stools. GENITOURINARY: Denies frequency, urgency, nocturia, hematuria or incontinence (Storage/Irritative symptoms.) Low urinary stream, straining to void, urinary intermittency or hesitancy, splitting of the voiding stream, terminal dribbling. PHYSICAL EXAM GENERAL APPEARANCE: The patient is awake, alert, and oriented, in no acute cardiopulmonary distress. NEUROLOGICAL: Cranial nerves II-XII grossly intact. Motor is 5/5 in bilateral upper and lower extremities proximal to distal. No sensory deficits. HEENT: Face is symmetric. Pupils are equal and reactive. Extraocular movements are intact. NECK: Supple. No JVD. No thyromegaly. No submental, submandibular, pre-/postauricular, occipital or supraclavicular lymphadenopathy. CHEST: Normal chest expansion. No Telemetry. LUNGS: Absence of any rales, rhonchi or any wheezing. CARDIOVASCULAR: Regular. S1 and S2 normal. No appreciable rubs, murmurs or gallops. ABDOMEN: Soft, nontender, and nondistended. There is no rebound, voluntary guarding, or rigidity. : Deferred. EXTREMITIES: No hair, Cold, and diminished pulses SKIN: No skin breakdown. Vital Signs (last 8hr) Date Time Temp Pulse Resp B/P (MAP) Pulse Ox O2 Delivery O2 Flow Rate FiO2 02/14/25 11:38 67 20 N/A Room Air 21 02/14/25 11:32 97.3 73 18 128/69 98 Room Air 02/14/25 11:11 67 19 02/14/25 07:55 97.3 57 18 119/56 95 Room Air 02/14/25 07:15 72 18 N/A Room Air 21 02/14/25 06:31 71 20 LABS: Laboratory: Test 02/14/25 04:14 Range/Units White Blood Count 11.6 H 4.8-10.8 K/uL Red Blood Count 3.90 L 4.00-5.50 MIL/uL Hemoglobin 10.0 L 12.0-16.0 g/dL Hematocrit 32.7 L 36-48 % Mean Corpuscular Volume 83.8 79-99 fL Mean Corpuscular Hemoglobin 25.6 L 27.0-33.0 pg Mean Corpuscular Hemoglobin Concent 30.6 L 32.0-36.0 g/dL Red Cell Distribution Width 18.2 H 11.0-15.5 % Platelet Count 499 H 130-400 K/uL Mean Platelet Volume 9.0 7.5-10.5 fL Nucleated Red Blood Cells 0.0 0.0-0.19 % Prothrombin Time 10.2 9.6-11.6 SEC Prothromb Time International Ratio 0.96 0.85-1.15 Activated Partial Thromboplast Time 31.0 26.3-35.5 SEC Sodium Level 136 136-145 mmol/L Potassium Level 3.9 3.5-5.1 mmol/L Chloride Level 101 101-111 mmol/L Carbon Dioxide Level 26 21-32 mmol/L Blood Urea Nitrogen 32 H 7-18 mg/dL Creatinine 1.3 H 0.5-1.0 mg/dL Glomerular Filtration Rate Calc 45 >90 mL/min Random Glucose 111 H 70-105 mg/dL Total Calcium 8.7 8.5-10.1 mg/dL Total Creatine Kinase 28 21-232 U/L Troponin I High Sensitivity 6.0 4-50 ng/L Current Medications Medications (Trade) Dose Ordered Sig/Bandar Route PRN Reason Start Time Stop Time Status Last Admin Dose Admin Acetaminophen (TYLenol 325MG TAB) 650 mg Q6H PRN PO TEMPERATURE GREATER THAN 101.5 02/10/25 04:00 03/12/25 03:59 Albuterol (DUOneb) 1 UDVIAL [id number] 02/10/25 06:00 03/12/25 05:59 02/14/25 11:35 1 UDVIAL Aspirin (Aspirin 81mg Ec Tab) 81 mg DAILY PO 02/10/25 09:00 03/12/25 08:59 02/13/25 08:51 81 MG Budesonide (Pulmicort 0.5 Mg/2ml) 0.5 mg BIDRESP 02/10/25 06:00 03/12/25 05:59 02/14/25 06:35 0.5 MG Carvedilol (Coreg 6.25MG) 6.25 mg BID PO 02/10/25 09:00 03/12/25 08:59 02/13/25 20:28 6.25 MG Duloxetine HCl (CymbALTA 30 mg CAP) 60 mg BID PO 02/10/25 09:00 03/12/25 08:59 02/13/25 20:28 60 MG Enoxaparin Sodium (Lovenox) 100 mg BID SQ 02/11/25 21:00 02/14/25 12:45 DC 02/13/25 20:27 100 MG Heparin Sodium (Porcine) (HEParin 5,000 UNIT VIAL) 5,000 unit Q12H SQ 02/10/25 09:00 02/11/25 18:21 DC Hydralazine HCl (APRESOLine 20MG INJ) 10 mg Q6H PRN IV For:SBP above 160;DBP above 90 02/10/25 04:00 03/12/25 03:59 Hydromorphone HCl (DiLAUDid 0.5MG INJ) 0.25 mg Q4H PRN IVP SEVERE PAIN (7-10) 02/10/25 04:00 02/15/25 03:59 02/14/25 12:18 0.25 MG Lactated Ringer's 1,000 ml @ 75 mls/hr [id number] IV 02/10/25 04:00 02/11/25 11:42 DC 02/10/25 11:04 75 MLS/HR Lactated Ringer's 1,000 ml @ 75 mls/hr [id number] IV 02/10/25 04:30 03/12/25 04:29 02/10/25 04:42 75 MLS/HR Lactulose (Constulose 20gm/ 30ml Udcup) 20 gm BID PRN PO CONSTIPATION 02/10/25 04:00 03/12/25 03:59 Magnesium Sulfate 50 ml @ 0 mls/hr PROTOCOL PRN IV PROTOCOL 02/11/25 12:00 03/13/25 11:59 02/11/25 17:55 25 MLS/HR Nicotine (Nicoderm) 14 mg DAILY TD 02/11/25 09:00 03/13/25 08:59 02/13/25 08:53 14 MG Ondansetron HCl (zoFRAN 4MG INJ) 4 mg Q6H PRN IV NAUSEA/VOMITING 02/10/25 04:00 03/12/25 03:59 Pantoprazole Sodium (PROTonix 40MG INJ) 40 mg DAILY IV 02/10/25 09:00 03/12/25 08:59 02/13/25 08:53 40 MG Potassium Chloride 100 ml @ 100 mls/hr AD PRN IV POTASSIUM PROTOCOL 02/11/25 12:00 03/13/25 11:59 Potassium Chloride (K-Dur/Klor-Con 20meq) 20 meq AD PRN PO POTASSIUM PROTOCOL 02/11/25 12:00 03/13/25 11:59 02/12/25 19:54 20 MEQ Potassium Chloride (KCl 10% Elixir 20meq/15ml) 20 meq AD PRN PO POTASSIUM PROTOCOL 02/11/25 12:00 03/13/25 11:59 Sacubitril/ Valsartan (Entresto 97 Mg-103 Mg Tablet) 1 each BID PO 02/12/25 21:00 03/14/25 20:59 02/13/25 20:28 1 EACH Sodium Chloride 1,000 ml @ 0 mls/hr Q0M IV 02/14/25 12:00 02/14/25 12:45 DC Sodium Chloride 1,000 ml @ 100 mls/hr Q10H IV 02/14/25 12:00 03/16/25 11:59 02/14/25 12:18 100 MLS/HR Spironolactone (Aldactone 25mg) 25 mg DAILY PO 02/10/25 09:00 03/12/25 08:59 02/12/25 09:21 25 MG Torsemide (Demadex) 20 mg DAILY PO 02/10/25 09:00 03/12/25 08:59 02/12/25 09:53 20 MG DIAGNOSTICS / RADIOLOGY: [ ] ASSESSMENT: Peripheral arterial disease, POA Chronic systolic/diastolic CHF, LVEF as low as 16% in 2019, improved to 60-65% in 2023 Leukocytosis POA Acute kidney injury POA Hypertension Hyperlipidemia Fibromyalgia Type 2 diabetes mellitus Intolerance of statins (myalgias), flecanide, neurontin, gabapentin, SGLT2i PLAN: Peripheral arterial disease * Duplex ultrasound revealed bilateral peripheral vascular disease * CT angiography shows short-segment stenosis of bilateral external iliac arteries, left distal superficial femoral artery with a narrow caliber flow and bilateral superficial femoral arteries, popliteal, anterior tibial and peroneal arteries consistent with moderate peripheral vascular disease. * Cardiology consultation by Dr. Lemus recommended angioplasty however Dr. Barahona we will consider bypass on Friday * Advised for smoking cessation and Nicotine patch placed * Continue aspirin 81 and Lovenox 100 mg b.i.d. as per Cardiology recommendations * Patient will undergo peripheral angiography in the a.m. with NPO status at midnight. She is currently on heart healthy diet. * Dr. Velarde is also following the patient for possible bypass graft in the future. * IV Dilaudid given to the patient today in a.m. for pain. She is on PRN IV Dilaudid 0.25 mg for severe pain Chronic systolic/diastolic CHF, LVEF as low as 16% in 2019, improved to 60-65% in 2023 * Patient's last 2D echo performed in 2023 showed EF of 60-65% * Continue torsemide 20 mg, spironolactone 25 mg, carvedilol 6.25 mg and Entres to * Daily weights and vitals q.4 * Avoid fluid overload * Heart failure medications continuing. Acute kidney injury, most likely contrast nephropathy * Patient creatinine today is 1.3 * Status post CT angiography with contrast * Give 500 mL bolus today and start patient on 1L (100mls/hr) maintenance fluid. * Avoid nephrotoxic agents GI prophylaxis with Protonix 40 mg and DVT prophylaxis with therapeutic Lovenox 100 mg b.i.d. ATTESTATION BY PHYSICIAN I have seen and examined the patient. I reviewed the documentation, medical decision making, and treatment plan as noted by the resident physician above. I agree with the findings and plan of care. KIRSTEN ROMERO MD, MUHAMMAD H MD Feb 14, 2025 13:31
--- NOTE | 2025-02-14 22:35 | NUR ---
MEDICATION HELD NS HELD DUE TO HISTORY OF CHF
[2025-02-15] VITALS (14 sets, daily range): BP systolic 118–136; BP diastolic 61–84; PULSE 53–81; RESP 12–20; TEMP 97.4–98.2; O2SAT 93–97
--- NOTE | 2025-02-15 04:35 | NUR ---
LR HELD LR AT 0430 HELD DUE TO HISTORY OF CHF.
[2025-02-15 04:41] LABS: NUCLEATED RED BLOOD CELLS 0.0 % (0.0-0.19); PLATELET COUNT (AUTO) 456.0 K/uL (130-400); RED BLOOD CELL COUNT(AUTO) 3.75 MIL/uL (4.00-5.50); RED CELL DISTRIBUTION WIDTH 18.3 % (11.0-15.5); WHITE BLOOD COUNT (AUTO) 11.2 K/uL (4.8-10.8)
[2025-02-15 04:59] LABS: CREATININE 1.2 mg/dL (0.5-1.0); GLOMERULAR FILTR. RATE CALC 49.0 mL/min (>90); GLUCOSE,RANDOM 91.0 mg/dL (70-105); SODIUM SERUM 137.0 mmol/L (136-145); UREA NITROGEN, BLOOD 28.0 mg/dL (7-18)
--- NOTE | 2025-02-15 07:28 | PN ---
Peripheral arterial disease, POA Chronic systolic/diastolic CHF, LVEF as low as 16% in 2020, improved to 60-65% in 2023 Leukocytosis POA Acute kidney injury POA Hypertension Hyperlipidemia Fibromyalgia Type 2 diabetes mellitus Intolerance of statins (myalgias), flecanide, neurontin, gabapentin, SGLT2i Patient is very concerned about paresthesia and numbness in her left leg in particular, but also in the other. She says when she massages her leg she does get some slight improvement in sensation in the foot. Physical exam is notable for a comfortable appearing overweight patient with no respiratory distress, normal heart sounds, no edema and no pulses in the feet. I spoke with Dr. William who is available to do this procedure today. We anticipate left iliac angioplasty/stent and possible left popliteal intervention as well. Because of personnel shortages logistics it did not allow completion of this procedure yesterday, but it will be done today. Vitals/Labs Vital Signs Date Time Temp Pulse Resp B/P (MAP) Pulse Ox O2 Delivery O2 Flow Rate FiO2 02/15/25 06:24 66 20 N/A Room Air 21 02/15/25 04:00 98.1 126/61 96 02/14/25 20:00 0 Laboratory Tests 02/15/25 04:18 Medications Current Medications Acetaminophen 650 mg Q6H PRN PO Last administered on 02/14/25at 23:08; Start 02/10/25 at 04:00; Stop 03/12/25 at 03:59 Hydromorphone HCl 0.25 mg Q4H PRN IVP Last administered on 02/14/25at 12:18; Start 02/10/25 at 04:00; Stop 02/15/25 at 03:59; Status DC Heparin Sodium (Porcine) 5,000 unit Q12H SQ; Start 02/10/25 at 09:00; Stop 02/11/25 at 18:21; Status DC Hydralazine HCl 10 mg Q6H PRN IV; Start 02/10/25 at 04:00; Stop 03/12/25 at 03:59 Lactated Ringer's 1,000 ml @ 75 mls/hr [id number] IV Last administered on 02/10/25at 11:04; Start 02/10/25 at 04:00; Stop 02/11/25 at 11:42; Status DC Lactulose 20 gm BID PRN PO; Start 02/10/25 at 04:00; Stop 03/12/25 at 03:59 Pantoprazole Sodium 40 mg DAILY IV Last administered on 02/13/25at 08:53; Start 02/10/25 at 09:00; Stop 03/12/25 at 08:59 Ondansetron HCl 4 mg Q6H PRN IV; Start 02/10/25 at 04:00; Stop 03/12/25 at 03:59 Albuterol 1 UDVIAL [id number] IH Last administered on 02/15/25at 06:22; Start 02/10/25 at 06:00; Stop 03/12/25 at 05:59 Budesonide 0.5 mg BIDRESP IH Last administered on 02/15/25at 06:22; Start 02/10/25 at 06:00; Stop 03/12/25 at 05:59 Lactated Ringer's 1,000 ml @ 75 mls/hr [id number] IV Last administered on 02/10/25at 04:42; Start 02/10/25 at 04:30; Stop 03/12/25 at 04:29 Aspirin 81 mg DAILY PO Last administered on 02/13/25at 08:51; Start 02/10/25 at 09:00; Stop 03/12/25 at 08:59 Carvedilol 6.25 mg BID PO Last administered on 02/14/25at 20:25; Start 02/10/25 at 09:00; Stop 03/12/25 at 08:59 Spironolactone 25 mg DAILY PO Last administered on 02/12/25at 09:21; Start 02/10/25 at 09:00; Stop 03/12/25 at 08:59 Torsemide 20 mg DAILY PO Last administered on 02/12/25at 09:53; Start 02/10/25 at 09:00; Stop 03/12/25 at 08:59 Duloxetine HCl 60 mg BID PO Last administered on 02/14/25at 20:25; Start 02/10/25 at 09:00; Stop 03/12/25 at 08:59 Nicotine 14 mg DAILY TD Last administered on 02/13/25at 08:53; Start 02/11/25 at 09:00; Stop 03/13/25 at 08:59 Iohexol 75 ml STK-MED ONCE IV; Start 02/10/25 at 15:16; Stop 02/10/25 at 15:16; Status DC Potassium Chloride 100 ml @ 100 mls/hr AD PRN IV; Start 02/11/25 at 12:00; Stop 03/13/25 at 11:59 Potassium Chloride 20 meq AD PRN PO; Start 02/11/25 at 12:00; Stop 03/13/25 at 11:59 Potassium Chloride 20 meq AD PRN PO Last administered on 02/12/25at 19:54; Start 02/11/25 at 12:00; Stop 03/13/25 at 11:59 Magnesium Sulfate 50 ml @ 0 mls/hr PROTOCOL PRN IV Last administered on 02/11/25at 17:55; Start 02/11/25 at 12:00; Stop 03/13/25 at 11:59 Enoxaparin Sodium 100 mg BID SQ Last administered on 02/13/25at 20:27; Start 02/11/25 at 21:00; Stop 02/14/25 at 12:45; Status DC Sacubitril/ Valsartan 1 each BID PO Last administered on 02/14/25at 20:25; Start 02/12/25 at 21:00; Stop 03/14/25 at 20:59 Sodium Chloride 1,000 ml @ 0 mls/hr Q0M IV; Start 02/14/25 at 12:00; Stop 02/14/25 at 12:45; Status DC Sodium Chloride 1,000 ml @ 100 mls/hr Q10H IV Last administered on 02/14/25at 12:18; Start 02/14/25 at 12:00; Stop 03/16/25 at 11:59 TRISTIN ROCHA MD Feb 15, 2025 07:28
[2025-02-15] MEDS ORDERED: 0.9% NACL 250ML 250 ML IV SCH (09:00)
--- NOTE | 2025-02-15 10:33 | PN ---
[facility] PROGRESS NOTE Date of Service: Feb 15, 2025 Time of Service: 10:18 SUBJECTIVE: Ms. Luna is a 70-year-old female that was seen and examined today on 02/10/2025. Patient is a good historian of personal health Patient reports that she came to the emergency department with a chief complaint of lower extremity pain. Onset is chronic however pain has been worse over the last three days. Location is left lower extremity. Duration is on and off. Character is described as sharp, tingling, numbness. Symptoms are aggravated with walking. There was no alleviating factors. Patient denies any associated chest pain or shortness and breath. Patient reports that she has been eating a revascularization for some time to her left lower extremity and knows that she has poor circulation to left lower extremity. Today in the emergency department WBCs 12.4, creatinine 1.2, urinalysis unremarkable, chest x-ray unremarkable, CT of the head is unremarkable, arterial ultrasound is pending radiology interpret ation however preliminary report shows monophasic waveforms to the left lower extremity. For this reason emergency room physician recommended that patient be admitted so she could be evaluated by Cardiology Service for possible revascularization. 02/10/2025: Patient is seen and evaluated in the room ED 11. Cardiology consultation placed, waiting for their recommendations. Urinalysis revealed hyaline casts. Patient is a smoker, gave nicotine patch and advised about smoking cessation. Patient takes Repatha once a week. Pending CT angio abdominal aorta with runoff. 02/11/2025: Patient is seen and evaluated in the room 330. CT angio abdominal aorta with runoff revealed atheromatous wall calcification of the aorta and its branches and both lower limb arteries with short-segment stenosis of bilateral external iliac arteries indicating moderate peripheral vascular disease. Since unable to get update from the paper counter, planned for discharge. But Dr. Velarde spoke with the patient, and planned to do procedure on Friday. Patient agreed to this. 02/12/2025: Patient was seen and evaluated in room 330. Patient had no acute events overnight however admitted to having pain and numbness like feeling in bilateral lower extremities more on the left side. Patient was pending intervention to the left leg on Friday by Dr. Barahona. Nurse informed me that patient had her home medication, Entresto to be taken daily. We will resume the medication. We will appreciate Cardiology input on continuation of the same. 02/13/2025: Patient was seen and evaluated in the room 330. Dr. Velarde plan to do bypass graft. But sand screener operator want to do peripheral angiography with angioplasty. So finally agreed to go with the procedure by the sand screener operator. Placed on telemetry monitoring. 02/14/2025: Patient was seen and evaluated at bedside. She was scheduled to undergo peripheral angiography today but it has been deferred till tomorrow as per Dr. Calvillo. She has been started on heart healthy diet and there is a plan to keep her NPO at midnight for possible procedure tomorrow. Patient complained of severe pain in her left leg and stated that pain is continuous and sometime it decreases when she bends the leg down. 02/15/2025: Patient was seen and evaluated at bedside. She is currently NPO and will undergo left iliac angioplasty/stent and possible left popliteal intervention today by Dr. William. Because of pain, she has been given Dilaudid this morning. We will further add pregabalin in the p.m. after the procedure for further management of pain. Additionally, she is currently on maintenance fluid and we further added 250 mL bolus before the procedure to avoid contrast nephropathy. We will proceed with conservative fluid administration because of history of CHF. Addendum: 12:58: The procedure has been deferred till tomorrow and she has been started on heart healthy diet. Additionally, she provided the nurse with her hydrocodone tablets today to be included in medication reconciliation which she takes for her fibromyalgia and back pain. REVIEW OF SYSTEMS CONSTITUTIONAL: Denies fevers, chills, or night sweats. No unintentional weight loss reported. NEUROLOGICAL: Denies headache, amaurosis fugax, motor weakness, sensory deficit, vertigo/spinning sensation, gait abnormalities, or tremors. ENT: No hearing loss, otalgia, otorrhea, rhinitis, rhinorrhea, hoarseness, or sore throat. CARDIOVASCULAR: Pain in left leg during resting. admits to claudication in both lower limbs. PULMONARY: Denies any shortness of breath, cough, phlegm/sputum, hemoptysis, pleuritic chest pain. SLEEP: Denies morning headaches, daytime somnolence or napping. Denies difficulty falling asleep, staying asleep, waking from sleep. Denies knowledge of snoring. GASTROINTESTINAL: Denies any type of dysphagia to either liquids or solids. Denies nausea, vomiting, pyrosis, early satiety, abdominal pain, diarrhea, constipation, or changes in stool consistency or caliber. Denies coffee-ground emesis, hematemesis, hematochezia, or melanotic stools. GENITOURINARY: Denies frequency, urgency, nocturia, hematuria or incontinence (Storage/Irritative symptoms.) Low urinary stream, straining to void, urinary intermittency or hesitancy, splitting of the voiding stream, terminal dribbling. PHYSICAL EXAM GENERAL APPEARANCE: The patient is awake, alert, and oriented, in no acute cardiopulmonary distress. NEUROLOGICAL: Cranial nerves II-XII grossly intact. Motor is 5/5 in bilateral upper and lower extremities proximal to distal. No sensory deficits. HEENT: Face is symmetric. Pupils are equal and reactive. Extraocular movements are intact. NECK: Supple. No JVD. No thyromegaly. No submental, submandibular, pre- /postauricular, occipital or supraclavicular lymphadenopathy. CHEST: Normal chest expansion. No Telemetry. LUNGS: Absence of any rales, rhonchi or any wheezing. CARDIOVASCULAR: Regular. S1 and S2 normal. No appreciable rubs, murmurs or gallops. ABDOMEN: Soft, nontender, and nondistended. There is no rebound, voluntary guarding, or rigidity. : Deferred. EXTREMITIES: No hair, Cold, and diminished pulses SKIN: No skin breakdown. Vital Signs (last 8hr) Date Time Temp Pulse Resp B/P (MAP) Pulse Ox O2 Delivery O2 Flow Rate FiO2 02/15/25 08:00 97.9 53 18 136/71 97 Room Air 02/15/25 08:00 97.9 53 18 136/71 97 Room Air 02/15/25 06:24 66 20 N/A Room Air 21 02/15/25 06:22 66 19 02/15/25 04:00 98.1 74 20 126/61 96 Room Air LABS: Laboratory: Test 02/15/25 04:18 02/14/25 04:14 Range/Units White Blood Count 11.2 H 4.8-10.8 K/uL Red Blood Count 3.75 L 4.00-5.50 MIL/uL Hemoglobin 9.5 L 12.0-16.0 g/dL Hematocrit 31.2 L 36-48 % Mean Corpuscular Volume 83.2 79-99 fL Mean Corpuscular Hemoglobin 25.3 L 27.0-33.0 pg Mean Corpuscular Hemoglobin Concent 30.4 L 32.0-36.0 g/dL Red Cell Distribution Width 18.3 H 11.0-15.5 % Platelet Count 456 H 130-400 K/uL Mean Platelet Volume 9.2 7.5-10.5 fL Nucleated Red Blood Cells 0.0 0.0-0.19 % Sodium Level 137 136-145 mmol/L Potassium Level 4.0 3.5-5.1 mmol/L Chloride Level 102 101-111 mmol/L Carbon Dioxide Level 28 21-32 mmol/L Blood Urea Nitrogen 28 H 7-18 mg/dL Creatinine 1.2 H 0.5-1.0 mg/dL Glomerular Filtration Rate Calc 49 >90 mL/min Random Glucose 91 70-105 mg/dL Total Calcium 9.2 8.5-10.1 mg/dL Magnesium Level 1.80 1.80-2.40 mg/dL Prothrombin Time 10.2 9.6-11.6 SEC Prothromb Time International Ratio 0.96 0.85-1.15 Activated Partial Thromboplast Time 31.0 26.3-35.5 SEC Total Creatine Kinase 28 21-232 U/L Troponin I High Sensitivity 6.0 4-50 ng/L Current Medications Medications (Trade) Dose Ordered Sig/Bandar Route PRN Reason Start Time Stop Time Status Last Admin Dose Admin Acetaminophen (TYLenol 325MG TAB) 650 mg Q6H PRN PO TEMPERATURE GREATER THAN 101.5 02/10/25 04:00 03/12/25 03:59 02/14/25 23:08 650 MG Albuterol (DUOneb) 1 UDVIAL [id number] IH 02/10/25 06:00 03/12/25 05:59 02/15/25 06:22 1 UDVIAL Aspirin (Aspirin 81mg Ec Tab) 81 mg DAILY PO 02/10/25 09:00 03/12/25 08:59 02/13/25 08:51 81 MG Budesonide (Pulmicort 0.5 Mg/2ml) 0.5 mg BIDRESP IH 02/10/25 06:00 03/12/25 05:59 02/15/25 06:22 0.5 MG Carvedilol (Coreg 6.25MG) 6.25 mg BID PO 02/10/25 09:00 03/12/25 08:59 02/14/25 20:25 6.25 MG Duloxetine HCl (CymbALTA 30 mg CAP) 60 mg BID PO 02/10/25 09:00 03/12/25 08:59 02/14/25 20:25 60 MG Enoxaparin Sodium (Lovenox) 100 mg BID SQ 02/11/25 21:00 02/14/25 12:45 DC 02/13/25 20:27 100 MG Heparin Sodium (Porcine) (HEParin 5,000 UNIT VIAL) 5,000 unit Q12H SQ 02/10/25 09:00 02/11/25 18:21 DC Hydralazine HCl (APRESOLine 20MG INJ) 10 mg Q6H PRN IV For:SBP above 160;DBP above 90 02/10/25 04:00 03/12/25 03:59 Hydromorphone HCl (DiLAUDid 0.5MG INJ) 0.2 mg Q6H PRN IVP SEVERE PAIN (7-10) 02/15/25 09:00 02/20/25 08:59 Hydromorphone HCl (DiLAUDid 0.5MG INJ) 0.25 mg Q4H PRN IVP SEVERE PAIN (7-10) 02/10/25 04:00 02/15/25 03:59 DC 02/14/25 12:18 0.25 MG Lactated Ringer's 1,000 ml @ 75 mls/hr [id number] IV 02/10/25 04:00 02/11/25 11:42 DC 02/10/25 11:04 75 MLS/HR Lactated Ringer's 1,000 ml @ 75 mls/hr [id number] IV 02/10/25 04:30 03/12/25 04:29 02/10/25 04:42 75 MLS/HR Lactulose (Constulose 20gm/ 30ml Udcup) 20 gm BID PRN PO CONSTIPATION 02/10/25 04:00 03/12/25 03:59 Magnesium Sulfate 50 ml @ 0 mls/hr PROTOCOL PRN IV PROTOCOL 02/11/25 12:00 03/13/25 11:59 02/11/25 17:55 25 MLS/HR Nicotine (Nicoderm) 14 mg DAILY TD 02/11/25 09:00 03/13/25 08:59 02/13/25 08:53 14 MG Ondansetron HCl (zoFRAN 4MG INJ) 4 mg Q6H PRN IV NAUSEA/VOMITING 02/10/25 04:00 03/12/25 03:59 Pantoprazole Sodium (PROTonix 40MG INJ) 40 mg DAILY IV 02/10/25 09:00 03/12/25 08:59 02/13/25 08:53 40 MG Potassium Chloride 100 ml @ 100 mls/hr AD PRN IV POTASSIUM PROTOCOL 02/11/25 12:00 03/13/25 11:59 Potassium Chloride (K-Dur/Klor-Con 20meq) 20 meq AD PRN PO POTASSIUM PROTOCOL 02/11/25 12:00 03/13/25 11:59 02/12/25 19:54 20 MEQ Potassium Chloride (KCl 10% Elixir 20meq/15ml) 20 meq AD PRN PO POTASSIUM PROTOCOL 02/11/25 12:00 03/13/25 11:59 Sacubitril/ Valsartan (Entresto 97 Mg-103 Mg Tablet) 1 each BID PO 02/12/25 21:00 03/14/25 20:59 02/14/25 20:25 1 EACH Sodium Chloride 250 ml @ 0 mls/hr Q0M IV 02/15/25 09:00 03/17/25 08:59 Sodium Chloride 1,000 ml @ 0 mls/hr Q0M IV 02/14/25 12:00 02/14/25 12:45 DC Sodium Chloride 1,000 ml @ 100 mls/hr Q10H IV 02/14/25 12:00 03/16/25 11:59 02/14/25 12:18 100 MLS/HR Spironolactone (Aldactone 25mg) 25 mg DAILY PO 02/10/25 09:00 03/12/25 08:59 02/12/25 09:21 25 MG Torsemide (Demadex) 20 mg DAILY PO 02/10/25 09:00 03/12/25 08:59 02/12/25 09:53 20 MG DIAGNOSTICS / RADIOLOGY: [ ] ASSESSMENT: Peripheral arterial disease, POA Chronic systolic/diastolic CHF, LVEF as low as 16% in 2019, improved to 60-65% in 2023 Leukocytosis POA Acute kidney injury POA Hypertension Hyperlipidemia Fibromyalgia Type 2 diabetes mellitus Intolerance of statins (myalgias), flecanide, neurontin, gabapentin, SGLT2i PLAN: Peripheral arterial disease * Duplex ultrasound revealed bilateral peripheral vascular disease * CT angiography shows short-segment stenosis of bilateral external iliac arteries, left distal superficial femoral artery with a narrow caliber flow and bilateral superficial femoral arteries, popliteal, anterior tibial and peroneal arteries consistent with moderate peripheral vascular disease. * Cardiology consultation by Dr. Lemus recommended angioplasty however Dr. Barahona stated we will consider bypass on Friday * Advised for smoking cessation and Nicotine patch placed * Continue aspirin 81 and Lovenox 100 mg b.i.d. as per Cardiology recommendations * Patient will undergo left iliac angioplasty/stent and possible left popliteal intervention by Dr. William today. She is currently NPO. * Dr. Velarde is also following the patient for possible bypass graft in the future. * IV Dilaudid given to the patient today in a.m. for pain. She is on PRN IV Dilaudid 0.25 mg for severe pain * Patient will be given pregabalin in the p.m. after the procedure. * Give 250 mL bolus before the procedure and keep patient on maintenance fluid following the procedure. Chronic systolic/diastolic CHF, LVEF as low as 16% in 2019, improved to 60-65% in 2023 * Patient's last 2D echo performed in 2023 showed EF of 60-65% * Continue torsemide 20 mg, spironolactone 25 mg, carvedilol 6.25 mg and Entresto * Daily weights and vitals q.4 * Avoid fluid overload * Heart failure medications continuing. Acute kidney injury, most likely contrast nephropathy * Patient creatinine today is 1.2 * Status post CT angiography with contrast * 500 mL bolus given yesterday. Give 250 mL today and keep patient on ( 100mls/hr) maintenance fluid. * Avoid nephrotoxic agents GI prophylaxis with Protonix 40 mg and DVT prophylaxis with therapeutic Lovenox 100 mg b.i.d. ATTESTATION BY PHYSICIAN I have seen and examined the patient. I reviewed the documentation, medical decision making, and treatment plan as noted by the resident physician above. I agree with the findings and plan of care. KIRSTEN ROMERO MD, MUHAMMAD H MD Feb 15, 2025 10:33
[2025-02-15] MEDS ORDERED: HYDR-4068 PO (12:41)
[2025-02-16] VITALS (22 sets, daily range): BP systolic 133–190; BP diastolic 50–90; PULSE 56–113; RESP 16–20; TEMP 97.3–98.1; O2SAT 97–99
[2025-02-16 05:01] LABS: NUCLEATED RED BLOOD CELLS 0.0 % (0.0-0.19); PLATELET COUNT (AUTO) 490.0 K/uL (130-400); RED BLOOD CELL COUNT(AUTO) 4.06 MIL/uL (4.00-5.50); RED CELL DISTRIBUTION WIDTH 18.4 % (11.0-15.5); WHITE BLOOD COUNT (AUTO) 11.4 K/uL (4.8-10.8)
[2025-02-16 05:21] LABS: CREATININE 1.1 mg/dL (0.5-1.0); GLOMERULAR FILTR. RATE CALC 54.0 mL/min (>90); GLUCOSE,RANDOM 112.0 mg/dL (70-105); SODIUM SERUM 138.0 mmol/L (136-145); UREA NITROGEN, BLOOD 27.0 mg/dL (7-18)
[2025-02-16] MEDS ORDERED: IODIXANOL 320 MG/ML 100 ML VIAL ONE (07:10)
[2025-02-16] MEDS ORDERED: NITROGLYCERIN 50MG VIAL ONE (07:10)
[2025-02-16] MEDS ORDERED: LIDOCAINE HCL 400MG/20ML VIAL ONE (07:10)
[2025-02-16] MEDS ORDERED: HEParin-NS 1,000 UNIT/500 ML 1,000 ML IV ONE (07:10)
[2025-02-16] MEDS ORDERED: MIDAZOLAM HCL 1 MG/ML 2ML VIAL ONE ×3 (07:32→09:58)
[2025-02-16] MEDS ORDERED: HEParin-NS 1,000 UNIT/500 ML 500 ML IV ONE (07:33)
--- NOTE | 2025-02-16 08:34 | PN ---
Anticipating left iliac and popliteal intervention by Dr. William today Vitals/Labs Vital Signs Date Time Temp Pulse Resp B/P (MAP) Pulse Ox O2 Delivery O2 Flow Rate FiO2 02/16/25 06:19 57 20 N/A Room Air 21 02/16/25 04:00 97.3 166/64 92 02/15/25 22:04 0 Laboratory Tests 02/16/25 04:24 Medications Current Medications Acetaminophen 650 mg Q6H PRN PO Last administered on 02/14/25at 23:08; Start 02/10/25 at 04:00; Stop 03/12/25 at 03:59 Hydromorphone HCl 0.25 mg Q4H PRN IVP Last administered on 02/14/25at 12:18; Start 02/10/25 at 04:00; Stop 02/15/25 at 03:59; Status DC Heparin Sodium (Porcine) 5,000 unit Q12H SQ; Start 02/10/25 at 09:00; Stop 02/11/25 at 18:21; Status DC Hydralazine HCl 10 mg Q6H PRN IV; Start 02/10/25 at 04:00; Stop 03/12/25 at 03:59 Lactated Ringer's 1,000 ml @ 75 mls/hr [id number] IV Last administered on 02/10/25at 11:04; Start 02/10/25 at 04:00; Stop 02/11/25 at 11:42; Status DC Lactulose 20 gm BID PRN PO; Start 02/10/25 at 04:00; Stop 03/12/25 at 03:59 Pantoprazole Sodium 40 mg DAILY IV Last administered on 02/13/25at 08:53; Start 02/10/25 at 09:00; Stop 03/12/25 at 08:59 Ondansetron HCl 4 mg Q6H PRN IV; Start 02/10/25 at 04:00; Stop 03/12/25 at 03:59 Albuterol 1 UDVIAL [id number] IH Last administered on 02/16/25at 06:17; Start 02/10/25 at 06:00; Stop 03/12/25 at 05:59 Budesonide 0.5 mg BIDRESP IH Last administered on 02/16/25at 06:17; Start 02/10/25 at 06:00; Stop 03/12/25 at 05:59 Lactated Ringer's 1,000 ml @ 75 mls/hr [id number] IV Last administered on 02/10/25at 04:42; Start 02/10/25 at 04:30; Stop 03/12/25 at 04:29 Aspirin 81 mg DAILY PO Last administered on 02/13/25at 08:51; Start 02/10/25 at 09:00; Stop 03/12/25 at 08:59 Carvedilol 6.25 mg BID PO Last administered on 02/15/25at 20:21; Start 02/10/25 at 09:00; Stop 03/12/25 at 08:59 Spironolactone 25 mg DAILY PO Last administered on 02/12/25at 09:21; Start 02/10/25 at 09:00; Stop 03/12/25 at 08:59 Torsemide 20 mg DAILY PO Last administered on 02/12/25at 09:53; Start 02/10/25 at 09:00; Stop 03/12/25 at 08:59 Duloxetine HCl 60 mg BID PO Last administered on 02/15/25at 20:20; Start 02/10/25 at 09:00; Stop 03/12/25 at 08:59 Nicotine 14 mg DAILY TD Last administered on 02/15/25at 12:26; Start 02/11/25 at 09:00; Stop 03/13/25 at 08:59 Iohexol 75 ml STK-MED ONCE IV; Start 02/10/25 at 15:16; Stop 02/10/25 at 15:16; Status DC Potassium Chloride 100 ml @ 100 mls/hr AD PRN IV; Start 02/11/25 at 12:00; Stop 03/13/25 at 11:59 Potassium Chloride 20 meq AD PRN PO; Start 02/11/25 at 12:00; Stop 03/13/25 at 11:59 Potassium Chloride 20 meq AD PRN PO Last administered on 02/12/25at 19:54; Start 02/11/25 at 12:00; Stop 03/13/25 at 11:59 Magnesium Sulfate 50 ml @ 0 mls/hr PROTOCOL PRN IV Last administered on 02/11/25at 17:55; Start 02/11/25 at 12:00; Stop 03/13/25 at 11:59 Enoxaparin Sodium 100 mg BID SQ Last administered on 02/13/25at 20:27; Start 02/11/25 at 21:00; Stop 02/14/25 at 12:45; Status DC Sacubitril/ Valsartan 1 each BID PO Last administered on 02/15/25at 20:21; Start 02/12/25 at 21:00; Stop 03/14/25 at 20:59 Sodium Chloride 1,000 ml @ 0 mls/hr Q0M IV; Start 02/14/25 at 12:00; Stop 02/14/25 at 12:45; Status DC Sodium Chloride 1,000 ml @ 100 mls/hr Q10H IV Last administered on 02/15/25at 08:00; Start 02/14/25 at 12:00; Stop 03/16/25 at 11:59 Hydromorphone HCl 0.2 mg Q6H PRN IVP Last administered on 02/15/25at 20:30; Start 02/15/25 at 09:00; Stop 02/20/25 at 08:59 Sodium Chloride 250 ml @ 0 mls/hr Q0M IV; Start 02/15/25 at 09:00; Stop 03/17/25 at 08:59 Pregabalin 100 mg BID PO Last administered on 02/15/25at 20:21; Start 02/15/25 at 21:00; Stop 03/17/25 at 20:59 Lidocaine HCl 20 ml STK-MED ONCE .ROUTE; Start 02/16/25 at 07:10; Stop 02/16/25 at 07:10; Status DC Iodixanol 100 ml STK-MED ONCE .ROUTE; Start 02/16/25 at 07:10; Stop 02/16/25 at 07:10; Status DC Heparin Sodium (Porcine) 10,000 unit STK-MED ONCE .ROUTE; Start 02/16/25 at 07:10; Stop 02/16/25 at 07:10; Status DC Heparin Sodium/ Sodium Chloride 1,000 ml @ As Directed STK-MED ONCE IV; Start 02/16/25 at 07:10; Stop 02/16/25 at 07:10; Status DC Nitroglycerin 50 mg STK-MED ONCE .ROUTE; Start 02/16/25 at 07:10; Stop 02/16/25 at 07:10; Status DC Nicardipine HCl 25 mg STK-MED ONCE IV; Start 02/16/25 at 07:22; Stop 02/16/25 at 07:22; Status DC Fentanyl Citrate 100 mcg STK-MED ONCE .ROUTE; Start 02/16/25 at 07:32; Stop 02/16/25 at 07:32; Status DC Midazolam HCl 2 mg STK-MED ONCE .ROUTE; Start 02/16/25 at 07:32; Stop 02/16/25 at 07:32; Status DC Heparin Sodium/ Sodium Chloride 500 ml @ As Directed STK-MED ONCE IV; Start 02/16/25 at 07:33; Stop 02/16/25 at 07:34; Status DC Midazolam HCl 2 mg STK-MED ONCE .ROUTE; Start 02/16/25 at 07:47; Stop 02/16/25 at 07:47; Status DC Hydralazine HCl 20 mg STK-MED ONCE .ROUTE; Start 02/16/25 at 08:30; Stop 02/16/25 at 08:30; Status DC TRISTIN ROCHA MD Feb 16, 2025 08:34
[2025-02-16] MEDS ORDERED: ASPIRIN 325MG EC TAB PO ONE (10:27)
[2025-02-16] MEDS ORDERED: FAMOTIDINE 20MG VIAL IV ONE (10:52)
--- NOTE | 2025-02-16 11:17 | PRN ---
Procedure:Peripheral Angiogram Procedure Note Procedure Note: Peripheral Angiogram Date of Service: 02/16/2025 Referring Physician: Dr. Calvillo Procedures Performed: Lower abdominal aortogram, peripheral angiogram with lower extremity arterial runoff, balloon angioplasty and bare metal stent placement in the proximal, mid, and distal left superficial femoral artery. Balloon angioplasty in the right external iliac artery Indications for Procedure: PAD, Colton category 3 symptoms (left lower extremity) PAD, status post multiple interventions of the bilateral lower extremities by the PAD specialist in [place], [place] Description of Procedure: [After informed consent was obtained the patient was prepped and draped in the u sual sterile fashion a 6 Guamanian arterial sheath with a hemostatic valve was inserted into the right common femoral artery using a modified Salinger technique on the first past front wall puncture. A 5 Guamanian Omni Flush catheter was then advanced over a soft angled Glidewire into the abdominal aorta and a lower abdominal aortogram with runoff was obtained. The findings are listed be low. The Omni flush catheter was then advanced to the left common femoral artery and a left lower extremity arteriogram was obtained. The findings are listed below.] Findings: Lower abdominal aorta: patent Right common iliac artery: patent. There is a patent stent in the distal end of the right common iliac artery that is patent. The stent extends into the right external iliac artery and right common femoral artery. Right external iliac artery: There is a stent, with 70% ISR seen within the artery Right internal iliac artery: patent Right common femoral artery: patent. There is a patent stent, in the proximal segment of the artery. Right profunda artery: patent Left common iliac artery: patent Left external iliac artery: patent Left internal iliac artery: patent Left common femoral artery: patent Left profunda artery: patent Left superficial femoral artery: There is diffuse 90-95% stenosis in the proximal, and mid segments of the artery. There is 100% stenosis (COOKER OPERATOR = 40 mm) in the mid to distal segments of the artery. The artery reconstitutes distally via collateral blood flow Left popliteal artery: patent Left anterior tibial artery: 100% stenosis (COOKER OPERATOR > 240 mm) in the proximal segment of the artery. The artery does not reconstitute distally Left tibial peroneal artery: patent Left peroneal artery: patent Left posterior tibial artery: 100% stenosis (COOKER OPERATOR > 240 mm) in the proximal segment of the artery. The artery does not reconstitute distally Left pedal arch: Incomplete, with slow single-vessel runoff supplying the anterior and posterior segments of the left pedal arch. Intervention: After reviewing the above-mentioned findings the decision was made to intervene on the left SFA. The soft angled glidewire was inserted into the Omni flush catheter and was advanced across the area of stenosis into the distal left popliteal artery. We then removed the Omni flush catheter and exchanged the short 6 Guamanian arterial sheath for a 65 cm 6 Guamanian destination arterial sheath, which was then placed in the proximal left superficial femoral artery. We then administered heparin 75 units/kg x1 dose, clopidogrel 600 mg x 1 dose, and aspirin 325 mg x 1 dose. We then advanced a 0.035 quick cross catheter over the soft angled Glidewire and into the distal left popliteal artery. We then removed the soft angled Glidewire and injected contrast into the quick cross catheter, which ensured that we were in the true lumen of the left popliteal artery. Once this was confirmed, we advanced a 0.014 runthrough guidewire into the quick cross catheter and into the distal left peroneal artery. We then removed the quick cross catheter and performed balloon angioplasty (4.0 x 150 mm > 5.0 x 200 mm > 6.0 x 150 mm) in the proximal, mid, distal left superficial artery. We then performed IVUS assessment of the left superficial femoral artery which identified the dissection plane extending from the proximal to the distal left superficial artery. We then performed successful bare metal stent placement (Everflex 6.0 x 80 mm, 6.0 x 200 mm and 5.0 x 120 mm) in an overlapping fashion, in the proximal, mid, and distal left superficial femoral artery. The stents were post dilated using a 6.0 x 150 mm balloon, achieving optimal results. Repeat angiography then revealed widely patent stents in the proximal, mid, and distal left superficial artery, and brisk single-vessel run off supplying the left foot/pedal arch. We then removed the 0.014 runthrough guidewire and exchanged the 65 cm six Guamanian destination arterial sheath, for a short 6 Guamanian arterial sheath. We then advanced a 0.035 J-tip wire across the stent and into the distal abdominal aorta. We then performed successful balloon angioplasty (6.0 x 40 mm > 8.0 x 40 mm) within the stent in the right external iliac artery to address the ISR. The balloons were then removed and repeat angiography was performed, which revealed a widely patent stent in the right external iliac artery. The 0.035 J-tip wire and short six Guamanian Chest sheath were removed and the arteriotomy site was successfully closed using a 6 Guamanian Angio-Seal device. The patient tolerated the procedure well and without issue. Estimated Blood Loss: [60]mL Complications: [ None] Conclusion: 1. PAD, Colton category 3 symptoms, diffuse 90-95% stenosis in the proximal, and mid left superficial artery and 100% stenosis in the mid to distal left superficial femoral artery status post successful treatment with balloon angioplasty and bare metal stent placement (Everflex 6.0 x 80 mm, 6.0 x 200 mm, and 5.0 x 120 mm). The stents were post dilated, achieving optimal results. 2. Residual PAD, 100% stenosis in the left anterior tibial artery and 100% stenosis in the left posterior tibial artery. Neither artery reconstitutes distally thus they are not amenable to percutaneous or surgical intervention 3. PAD, 70% ISR in the stent in the right external iliac artery status post successful treatment with balloon angioplasty Recommendations/Instructions: 1. Continue goal-directed medical therapy. 2. Start clopidogrel 75 mg daily and continue aspirin 81 mg daily. The patient will remain on DAPT for a minimum of 6 months, but optimally for 1 year. 3. Groin precautions. 4. 4 hours of bedrest. 5. Please start NS at 100 mL/hr x 3 hours. 6. No driving x 48 hours. 7. No strenuous activity or heavy lifting x 2 weeks. RACHEL CLEANING MD Feb 16, 2025 11:17
[2025-02-16] MEDS: 0.9%NACL 1000ML 1,000 ML IV SCH (13:05)
--- NOTE | 2025-02-16 14:28 | PN ---
[facility] PROGRESS NOTE Date of Service: Feb 16, 2025 Time of Service: 10:00 SUBJECTIVE: Ms. Luna is a 70-year-old female that was seen and examined today on 02/10/2025. Patient is a good historian of personal health Patient reports that she came to the emergency department with a chief complaint of lower extremity pain. Onset is chronic however pain has been worse over the last three days. Location is left lower extremity. Duration is on and off. Character is described as sharp, tingling, numbness. Symptoms are aggravated with walking. There was no alleviating factors. Patient denies any associated chest pain or shortness and breath. Patient reports that she has been eating a revascularization for some time to her left lower extremity and knows that she has poor circulation to left lower extremity. Today in the emergency department WBCs 12.4, creatinine 1.2, urinalysis unremarkable, chest x-ray unremarkable, CT of the head is unremarkable, arterial ultrasound is pending radiology interpret ation however preliminary report shows monophasic waveforms to the left lower extremity. For this reason emergency room physician recommended that patient be admitted so she could be evaluated by Cardiology Service for possible revascularization. 02/10/2025: Patient is seen and evaluated in the room ED 11. Cardiology consultation placed, waiting for their recommendations. Urinalysis revealed hyaline casts. Patient is a smoker, gave nicotine patch and advised about smoking cessation. Patient takes Repatha once a week. Pending CT angio abdominal aorta with runoff. 02/11/2025: Patient is seen and evaluated in the room 330. CT angio abdominal aorta with runoff revealed atheromatous wall calcification of the aorta and its branches and both lower limb arteries with short-segment stenosis of bilateral external iliac arteries indicating moderate peripheral vascular disease. Since unable to get update from the mine supervisor, planned for discharge. But Dr. Velarde spoke with the patient, and planned to do procedure on Friday. Patient agreed to this. 02/12/2025: Patient was seen and evaluated in room 330. Patient had no acute events overnight however admitted to having pain and numbness like feeling in bilateral lower extremities more on the left side. Patient was pending intervention to the left leg on Friday by Dr. Barahona. Nurse informed me that patient had her home medication, Entresto to be taken daily. We will resume the medication. We will appreciate Cardiology input on continuation of the same. 02/13/2025: Patient was seen and evaluated in the room 330. Dr. Velarde plan to do bypass graft. But drugless physician want to do peripheral angiography with angioplasty. So finally agreed to go with the procedure by the drugless physician. Placed on telemetry monitoring. 02/14/2025: Patient was seen and evaluated at bedside. She was scheduled to undergo peripheral angiography today but it has been deferred till tomorrow as per Dr. Calvillo. She has been started on heart healthy diet and there is a plan to keep her NPO at midnight for possible procedure tomorrow. Patient complained of severe pain in her left leg and stated that pain is continuous and sometime it decreases when she bends the leg down. 02/15/2025: Patient was seen and evaluated at bedside. She is currently NPO and will undergo left iliac angioplasty/stent and possible left popliteal intervention today by Dr. Cleaning. Because of pain, she has been given Dilaudid this morning. We will further add pregabalin in the p.m. after the procedure for further management of pain. Additionally, she is currently on maintenance fluid and we further added 250 mL bolus before the procedure to avoid contrast nephropathy. We will proceed with conservative fluid administration because of history of CHF. Addendum: 12:58: The procedure has been deferred till tomorrow and she has been started on heart healthy diet. Additionally, she provided the nurse with her hydrocodone tablets today to be included in medication reconciliation which she takes for her fibromyalgia and back pain. 02/16/2025: Patient was taken to the mine laborer and she successfully underwent balloon angioplasty and bare metal stent placement in the proximal, mid, and distal left superficial femoral artery as well as Balloon angioplasty in the right external iliac artery by Dr. CLEANING. After the procedure, she has been started on DAPT and has been advised to maintain bedrest for 4 hours. We will continue to follow up recommendations from Cardiology. REVIEW OF SYSTEMS CONSTITUTIONAL: Denies fevers, chills, or night sweats. No unintentional weight loss reported. NEUROLOGICAL: Denies headache, amaurosis fugax, motor weakness, sensory deficit, vertigo/spinning sensation, gait abnormalities, or tremors. ENT: No hearing loss, otalgia, otorrhea, rhinitis, rhinorrhea, hoarseness, or sore throat. CARDIOVASCULAR: Pain in left leg during resting. admits to claudication in both lower limbs. PULMONARY: Denies any shortness of breath, cough, phlegm/sputum, hemoptysis, pleuritic chest pain. SLEEP: Denies morning headaches, daytime somnolence or napping. Denies difficulty falling asleep, staying asleep, waking from sleep. Denies knowledge of snoring. GASTROINTESTINAL: Denies any type of dysphagia to either liquids or solids. Denies nausea, vomiting, pyrosis, early satiety, abdominal pain, diarrhea, constipation, or changes in stool consistency or caliber. Denies coffee-ground emesis, hematemesis, hematochezia, or melanotic stools. GENITOURINARY: Denies frequency, urgency, nocturia, hematuria or incontinence (Storage/Irritative symptoms.) Low urinary stream, straining to void, urinary intermittency or hesitancy, splitting of the voiding stream, terminal dribbling. PHYSICAL EXAM GENERAL APPEARANCE: The patient is awake, alert, and oriented, in no acute cardiopulmonary distress. NEUROLOGICAL: Cranial nerves II-XII grossly intact. Motor is 5/5 in bilateral upper and lower extremities proximal to distal. No sensory deficits. HEENT: Face is symmetric. Pupils are equal and reactive. Extraocular movements are intact. NECK: Supple. No JVD. No thyromegaly. No submental, submandibular, pre- /postauricular, occipital or supraclavicular lymphadenopathy. CHEST: Normal chest expansion. No Telemetry. LUNGS: Absence of any rales, rhonchi or any wheezing. CARDIOVASCULAR: Regular. S1 and S2 normal. No appreciable rubs, murmurs or gallops. ABDOMEN: Soft, nontender, and nondistended. There is no rebound, voluntary guarding, or rigidity. : Deferred. EXTREMITIES: No hair, Cold, and diminished pulses SKIN: No skin breakdown. Vital Signs (last 8hr) Date Time Temp Pulse Resp B/P (MAP) Pulse Ox O2 Delivery O2 Flow Rate FiO2 02/16/25 13:22 190/87 02/16/25 13:17 103 190/87 98 Room Air 02/16/25 12:47 102 177/85 99 Room Air 02/16/25 12:08 98.1 72 18 144/81 99 Room Air 02/16/25 12:02 99 150/90 99 Room Air 02/16/25 11:47 95 178/90 98 Room Air 02/16/25 11:32 103 159/50 97 Room Air 02/16/25 11:18 106 20 N/A Room Air 02/16/25 11:16 106 18 02/16/25 06:19 57 20 N/A Room Air 02/16/25 06:18 57 18 LABS: Laboratory: Test 02/16/25 04:24 02/15/25 04:18 Range/Units White Blood Count 11.4 H 4.8-10.8 K/uL Red Blood Count 4.06 4.00-5.50 MIL/uL Hemoglobin 10.4 L 12.0-16.0 g/dL Hematocrit 34.1 L 36-48 % Mean Corpuscular Volume 84.0 79-99 fL Mean Corpuscular Hemoglobin 25.6 L 27.0-33.0 pg Mean Corpuscular Hemoglobin Concent 30.5 L 32.0-36.0 g/dL Red Cell Distribution Width 18.4 H 11.0-15.5 % Platelet Count 490 H 130-400 K/uL Mean Platelet Volume 9.1 7.5-10.5 fL Nucleated Red Blood Cells 0.0 0.0-0.19 % Sodium Level 138 136-145 mmol/L Potassium Level 4.2 3.5-5.1 mmol/L Chloride Level 101 101-111 mmol/L Carbon Dioxide Level 30 21-32 mmol/L Blood Urea Nitrogen 27 H 7-18 mg/dL Creatinine 1.1 H 0.5-1.0 mg/dL Glomerular Filtration Rate Calc 54 >90 mL/min Random Glucose 112 H 70-105 mg/dL Total Calcium 10.9 H 8.5-10.1 mg/dL Magnesium Level 1.80 1.80-2.40 mg/dL Current Medications Medications (Trade) Dose Ordered Sig/Bandar Route PRN Reason Start Time Stop Time Status Last Admin Dose Admin Acetaminophen (TYLenol 325MG TAB) 650 mg Q6H PRN PO TEMPERATURE GREATER THAN 101.5 02/10/25 04:00 03/12/25 03:59 02/14/25 23:08 650 MG Albuterol (DUOneb) 1 UDVIAL [id number] 02/10/25 06:00 03/12/25 05:59 02/16/25 11:16 1 UDVIAL Aspirin (Aspirin 81mg Ec Tab) 81 mg DAILY PO 02/10/25 09:00 03/12/25 08:59 02/13/25 08:51 81 MG Budesonide (Pulmicort 0.5 Mg/2ml) 0.5 mg BIDRESP 02/10/25 06:00 03/12/25 05:59 02/16/25 06:17 0.5 MG Carvedilol (Coreg 6.25MG) 6.25 mg BID PO 02/10/25 09:00 03/12/25 08:59 02/15/25 20:21 6.25 MG Clopidogrel Bisulfate (plaVIX 75MG) 75 mg DAILY PO 02/17/25 09:00 03/19/25 08:59 Duloxetine HCl (CymbALTA 30 mg CAP) 60 mg BID PO 02/10/25 09:00 03/12/25 08:59 02/15/25 20:20 60 MG Enoxaparin Sodium (Lovenox) 100 mg BID SQ 02/11/25 21:00 02/14/25 12:45 DC 02/13/25 20:27 100 MG Heparin Sodium (Porcine) (HEParin 5,000 UNIT VIAL) 5,000 unit Q12H SQ 02/10/25 09:00 02/11/25 18:21 DC Hydralazine HCl (APRESOLine 20MG INJ) 10 mg Q6H PRN IV For:SBP above 160;DBP above 90 02/10/25 04:00 03/12/25 03:59 02/16/25 13:22 10 MG Hydromorphone HCl (DiLAUDid 0.5MG INJ) 0.2 mg Q6H PRN IVP SEVERE PAIN (7-10) 02/15/25 09:00 02/20/25 08:59 02/15/25 20:30 0.2 MG Hydromorphone HCl (DiLAUDid 0.5MG INJ) 0.25 mg Q4H PRN IVP SEVERE PAIN (7-10) 02/10/25 04:00 02/15/25 03:59 DC 02/14/25 12:18 0.25 MG Lactated Ringer's 1,000 ml @ 75 mls/hr [id number] IV 02/10/25 04:00 02/11/25 11:42 DC 02/10/25 11:04 75 MLS/HR Lactated Ringer's 1,000 ml @ 75 mls/hr [id number] IV 02/10/25 04:30 03/12/25 04:29 02/10/25 04:42 75 MLS/HR Lactulose (Constulose 20gm/ 30ml Udcup) 20 gm BID PRN PO CONSTIPATION 02/10/25 04:00 03/12/25 03:59 Magnesium Sulfate 50 ml @ 0 mls/hr PROTOCOL PRN IV PROTOCOL 02/11/25 12:00 03/13/25 11:59 02/11/25 17:55 25 MLS/HR Nicotine (Nicoderm) 14 mg DAILY TD 02/11/25 09:00 03/13/25 08:59 02/15/25 12:26 14 MG Ondansetron HCl (zoFRAN 4MG INJ) 4 mg Q6H PRN IV NAUSEA/VOMITING 02/10/25 04:00 03/12/25 03:59 Pantoprazole Sodium (PROTonix 40MG INJ) 40 mg DAILY IV 02/10/25 09:00 03/12/25 08:59 02/13/25 08:53 40 MG Potassium Chloride 100 ml @ 100 mls/hr AD PRN IV POTASSIUM PROTOCOL 02/11/25 12:00 03/13/25 11:59 Potassium Chloride (K-Dur/Klor-Con 20meq) 20 meq AD PRN PO POTASSIUM PROTOCOL 02/11/25 12:00 03/13/25 11:59 02/12/25 19:54 20 MEQ Potassium Chloride (KCl 10% Elixir 20meq/15ml) 20 meq AD PRN PO POTASSIUM PROTOCOL 02/11/25 12:00 03/13/25 11:59 Pregabalin (LYRica 100MG) 100 mg BID PO 02/15/25 21:00 03/17/25 20:59 02/15/25 20:21 100 MG Sacubitril/ Valsartan (Entresto 97 Mg-103 Mg Tablet) 1 each BID PO 02/12/25 21:00 03/14/25 20:59 02/15/25 20:21 1 EACH Sodium Chloride 250 ml @ 0 mls/hr Q0M IV 02/15/25 09:00 03/17/25 08:59 Sodium Chloride 1,000 ml @ 0 mls/hr Q0M IV 02/14/25 12:00 02/14/25 12:45 DC Sodium Chloride 1,000 ml @ 100 mls/hr Q10H IV 02/14/25 12:00 03/16/25 11:59 02/15/25 08:00 100 MLS/HR Sodium Chloride 1,000 ml @ 100 mls/hr Q10H IV 02/16/25 10:30 02/16/25 13:29 DC 02/16/25 13:05 100 MLS/HR Spironolactone (Aldactone 25mg) 25 mg DAILY PO 02/10/25 09:00 03/12/25 08:59 02/12/25 09:21 25 MG Torsemide (Demadex) 20 mg DAILY PO 02/10/25 09:00 03/12/25 08:59 02/12/25 09:53 20 MG DIAGNOSTICS / RADIOLOGY: [ ] ASSESSMENT: Peripheral arterial disease, POA Chronic systolic/diastolic CHF, LVEF as low as 16% in 2019, improved to 60-65% in 2023 Leukocytosis POA Acute kidney injury POA Hypertension Hyperlipidemia Fibromyalgia Type 2 diabetes mellitus Intolerance of statins (myalgias), flecanide, neurontin, gabapentin, SGLT2i PLAN: Peripheral arterial disease * Duplex ultrasound revealed bilateral peripheral vascular disease * CT angiography showed short-segment stenosis of bilateral external iliac arteries, left distal superficial femoral artery with a narrow caliber flow and bilateral superficial femoral arteries, popliteal, anterior tibial and peroneal arteries consistent with moderate peripheral vascular disease. * On 02/16/2025, patient underwent Lower abdominal aortogram, peripheral angiogram with lower extremity arterial runoff, balloon angioplasty and bare metal stent placement in the proximal, mid, and distal left superficial femoral artery. Balloon angioplasty in the right external iliac artery. Procedure was performed by . * Continue goal-directed medical therapy. * Start clopidogrel 75 mg daily and continue aspirin 81 mg daily. The patient will remain on DAPT for a minimum of 6 months, but optimally for 1 year. * Groin precautions. * 4 hours of bedrest. * Please start NS at 100 mL/hr x 3 hours. * No driving x 48 hours. * No strenuous activity or heavy lifting x 2 weeks. * Advised for smoking cessation and Nicotine patch placed * Start patient on heart healthy diet. * She is on PRN IV Dilaudid 0.25 mg for severe pain * Start pregabalin in the p.m. after the procedure. Chronic systolic/diastolic CHF, LVEF as low as 16% in 2019, improved to 60-65% in 2023 * Patient's last 2D echo performed in 2023 showed EF of 60-65% * Continue torsemide 20 mg, spironolactone 25 mg, carvedilol 6.25 mg and Entresto * Daily weights and vitals q.4 * Avoid fluid overload * Heart failure medications continuing. Acute kidney injury, most likely contrast nephropathy * Patient creatinine today is 1.2 * Status post CT angiography with contrast * 500 mL bolus given yesterday. Give 250 mL today and keep patient on (100mls/hr) maintenance fluid. * Avoid nephrotoxic agents GI prophylaxis with Protonix 40 mg and DVT prophylaxis with therapeutic Lovenox 100 mg b.i.d. ATTESTATION BY PHYSICIAN I have seen and examined the patient. I reviewed the documentation, medical decision making, and treatment plan as noted by the resident physician above. I agree with the findings and plan of care. KIRSTEN ROMERO MD, MUHAMMAD H MD Feb 16, 2025 14:28
[2025-02-17] VITALS (13 sets, daily range): BP systolic 110–157; BP diastolic 53–77; PULSE 59–108; RESP 17–20; TEMP 97.8–100.6; O2SAT 93–99
[2025-02-17 04:39] LABS: NUCLEATED RED BLOOD CELLS 0.0 % (0.0-0.19); PLATELET COUNT (AUTO) 472 K/uL (130-400); RED BLOOD CELL COUNT(AUTO) 4.09 MIL/uL (4.00-5.50); RED CELL DISTRIBUTION WIDTH 18.2 % (11.0-15.5); WHITE BLOOD COUNT (AUTO) 13.2 K/uL (4.8-10.8)
[2025-02-17 04:49] LABS: CREATININE 1.0 mg/dL (0.5-1.0); GLOMERULAR FILTR. RATE CALC 61.0 mL/min (>90); GLUCOSE,RANDOM 112.0 mg/dL (70-105); SODIUM SERUM 141.0 mmol/L (136-145); UREA NITROGEN, BLOOD 19.0 mg/dL (7-18)
--- NOTE | 2025-02-17 14:19 | PN ---
[facility] PROGRESS NOTE Date of Service: Feb 17, 2025 Time of Service: 9:10 SUBJECTIVE: Ms. Luna is a 70-year-old female that was seen and examined today on 02/10/2025. Patient is a good historian of personal health Patient reports that she came to the emergency department with a chief complaint of lower extremity pain. Onset is chronic however pain has been worse over the last three days. Location is left lower extremity. Duration is on and off. Character is described as sharp, tingling, numbness. Symptoms are aggravated with walking. There was no alleviating factors. Patient denies any associated chest pain or shortness and breath. Patient reports that she has been eating a revascularization for some time to her left lower extremity and knows that she has poor circulation to left lower extremity. Today in the emergency department WBCs 12.4, creatinine 1.2, urinalysis unremarkable, chest x-ray unremarkable, CT of the head is unremarkable, arterial ultrasound is pending radiology interpreta tion however preliminary report shows monophasic waveforms to the left lower extremity. For this reason emergency room physician recommended that patient be admitted so she could be evaluated by Cardiology Service for possible revascularization. 02/10/2025: Patient is seen and evaluated in the room ED 11. Cardiology consultation placed, waiting for their recommendations. Urinalysis revealed hyaline casts. Patient is a smoker, gave nicotine patch and advised about smoking cessation. Patient takes Repatha once a week. Pending CT angio abdominal aorta with runoff. 02/11/2025: Patient is seen and evaluated in the room 330. CT angio abdominal aorta with runoff revealed atheromatous wall calcification of the aorta and its branches and both lower limb arteries with short-segment stenosis of bilateral external iliac arteries indicating moderate peripheral vascular disease. Since unable to get update from the food mixer repairer, planned for discharge. But Dr. Velarde spoke with the patient, and planned to do procedure on Friday. Patient agreed to this. 02/12/2025: Patient was seen and evaluated in room 330. Patient had no acute events overnight however admitted to having pain and numbness like feeling in bilateral lower extremities more on the left side. Patient was pending intervention to the left leg on Friday by Dr. Barahona. Nurse informed me that patient had her home medication, Entresto to be taken daily. We will resume the medication. We will appreciate Cardiology input on continuation of the same. 02/13/2025: Patient was seen and evaluated in the room 330. Dr. Velarde plan to do bypass graft. But outside deliverer want to do peripheral angiography with angioplasty. So finally agreed to go with the procedure by the outside deliverer. Placed on telemetry monitoring. 02/14/2025: Patient was seen and evaluated at bedside. She was scheduled to undergo peripheral angiography today but it has been deferred till tomorrow as per Dr. Calvillo. She has been started on heart healthy diet and there is a plan to keep her NPO at midnight for possible procedure tomorrow. Patient complained of severe pain in her left leg and stated that pain is continuous and sometime it decreases when she bends the leg down. 02/15/2025: Patient was seen and evaluated at bedside. She is currently NPO and will undergo left iliac angioplasty/stent and possible left popliteal intervention today by Dr. Cleaning. Because of pain, she has been given Dilaudid this morning. We will further add pregabalin in the p.m. after the procedure for further management of pain. Additionally, she is currently on maintenance fluid and we further added 250 mL bolus before the procedure to avoid contrast nephropathy. We will proceed with conservative fluid administration because of history of CHF. Addendum: 12:58: The procedure has been deferred till tomorrow and she has been started on heart healthy diet. Additionally, she provided the nurse with her hydrocodone tablets today to be included in medication reconciliation which she takes for her fibromyalgia and back pain. 02/16/2025: Patient was taken to the cathead operator and she successfully underwent balloon angioplasty and bare metal stent placement in the proximal, mid, and distal left superficial femoral artery as well as Balloon angioplasty in the right external iliac artery by Dr. CLEANING. After the procedure, she has been started on DAPT and has been advised to maintain bedrest for 4 hours. We will continue to follow up recommendations from Cardiology. 02/17/2025: Patient is 1 day status post angioplasty for peripheral artery disease in the lower extremities. She has been started on dual antiplatelet therapy and continues on GDMT. Patient states that her pain in the right leg has improved but pain in the left leg is around the same severity. She understood that it will take some time and we had a discussion regarding No strenuous activity or heavy lifting for 2 weeks. We also went over regarding groin precautions and keeping the wound clean. We will follow up with Cardiology clearance. We have placed rifle case repairer evaluation for short-term rehab as well as PT evaluation and treatment. REVIEW OF SYSTEMS CONSTITUTIONAL: Denies fevers, chills, or night sweats. No unintentional weight loss reported. NEUROLOGICAL: Denies headache, amaurosis fugax, motor weakness, sensory deficit, vertigo/spinning sensation, gait abnormalities, or tremors. ENT: No hearing loss, otalgia, otorrhea, rhinitis, rhinorrhea, hoarseness, or sore throat. CARDIOVASCULAR: Pain in left leg during resting. admits to claudication in both lower limbs. PULMONARY: Denies any shortness of breath, cough, phlegm/sputum, hemoptysis, pleuritic chest pain. SLEEP: Denies morning headaches, daytime somnolence or napping. Denies difficulty falling asleep, staying asleep, waking from sleep. Denies knowledge of snoring. GASTROINTESTINAL: Denies any type of dysphagia to either liquids or solids. Denies nausea, vomiting, pyrosis, early satiety, abdominal pain, diarrhea, constipation, or changes in stool consistency or caliber. Denies coffee-ground emesis, hematemesis, hematochezia, or melanotic stools. GENITOURINARY: Denies frequency, urgency, nocturia, hematuria or incontinence (Storage/Irritative symptoms.) Low urinary stream, straining to void, urinary intermittency or hesitancy, splitting of the voiding stream, terminal dribbling. PHYSICAL EXAM GENERAL APPEARANCE: The patient is awake, alert, and oriented, in no acute cardiopulmonary distress. NEUROLOGICAL: Cranial nerves II-XII grossly intact. Motor is 5/5 in bilateral upper and lower extremities proximal to distal. No sensory deficits. HEENT: Face is symmetric. Pupils are equal and reactive. Extraocular movements are intact. NECK: Supple. No JVD. No thyromegaly. No submental, submandibular, pre- /postauricular, occipital or supraclavicular lymphadenopathy. CHEST: Normal chest expansion. No Telemetry. LUNGS: Absence of any rales, rhonchi or any wheezing. CARDIOVASCULAR: Regular. S1 and S2 normal. No appreciable rubs, murmurs or gallops. ABDOMEN: Soft, nontender, and nondistended. There is no rebound, voluntary guarding, or rigidity. : Deferred. EXTREMITIES: No hair, Cold, and diminished pulses on presentation. SKIN: No skin breakdown. Vital Signs (last 8hr) Date Time Temp Pulse Resp B/P (MAP) Pulse Ox O2 Delivery O2 Flow Rate FiO2 02/17/25 12:10 59 19 02/17/25 12:09 59 19 N/A Room Air 21 02/17/25 12:00 97.9 108 18 121/74 100 Room Air 02/17/25 08:39 157/62 02/17/25 08:38 95 Room Air* 0 21 02/17/25 08:12 97.9 86 18 157/62 95 Room Air 02/17/25 07:04 90 19 02/17/25 07:03 90 19 N/A Room Air 21 LABS: Laboratory: Test 02/17/25 04:02 02/16/25 09:44 Range/Units White Blood Count 13.2 H 4.8-10.8 K/uL Red Blood Count 4.09 4.00-5.50 MIL/uL Hemoglobin 10.4 L 12.0-16.0 g/dL Hematocrit 33.4 L 36-48 % Mean Corpuscular Volume 81.7 79-99 fL Mean Corpuscular Hemoglobin 25.4 L 27.0-33.0 pg Mean Corpuscular Hemoglobin Concent 31.1 L 32.0-36.0 g/dL Red Cell Distribution Width 18.2 H 11.0-15.5 % Platelet Count 472 H 130-400 K/uL Mean Platelet Volume 9.1 7.5-10.5 fL Nucleated Red Blood Cells 0.0 0.0-0.19 % Red Blood Cell Morphology ANISO 1+ Sodium Level 141 136-145 mmol/L Potassium Level 3.9 3.5-5.1 mmol/L Chloride Level 104 101-111 mmol/L Carbon Dioxide Level 27 21-32 mmol/L Blood Urea Nitrogen 19 H 7-18 mg/dL Creatinine 1.0 0.5-1.0 mg/dL Glomerular Filtration Rate Calc 61 >90 mL/min Random Glucose 112 H 70-105 mg/dL Total Calcium 9.8 8.5-10.1 mg/dL Magnesium Level 1.60 L 1.80-2.40 mg/dL Kaolin Activated Coagulation Time 285 H 74-137 SEC Current Medications Medications (Trade) Dose Ordered Sig/Bandar Route PRN Reason Start Time Stop Time Status Last Admin Dose Admin Acetaminophen (TYLenol 325MG TAB) 650 mg Q6H PRN PO TEMPERATURE GREATER THAN 101.5 02/10/25 04:00 03/12/25 03:59 02/14/25 23:08 650 MG Albuterol (DUOneb) 1 UDVIAL [id number] 02/10/25 06:00 03/12/25 05:59 02/17/25 12:08 1 UDVIAL Aspirin (Aspirin 81mg Ec Tab) 81 mg DAILY PO 02/10/25 09:00 03/12/25 08:59 02/17/25 08:38 81 MG Budesonide (Pulmicort 0.5 Mg/2ml) 0.5 mg BIDRESP 02/10/25 06:00 03/12/25 05:59 02/17/25 07:03 0.5 MG Carvedilol (Coreg 6.25MG) 6.25 mg BID PO 02/10/25 09:00 03/12/25 08:59 02/17/25 08:39 6.25 MG Clopidogrel Bisulfate (plaVIX 75MG) 75 mg DAILY PO 02/17/25 09:00 03/19/25 08:59 02/17/25 08:38 75 MG Duloxetine HCl (CymbALTA 30 mg CAP) 60 mg BID PO 02/10/25 09:00 03/12/25 08:59 02/17/25 08:38 60 MG Enoxaparin Sodium (Lovenox) 100 mg BID SQ 02/11/25 21:00 02/14/25 12:45 DC 02/13/25 20:27 100 MG Heparin Sodium (Porcine) (HEParin 5,000 UNIT VIAL) 5,000 unit Q12H SQ 02/10/25 09:00 02/11/25 18:21 DC Hydralazine HCl (APRESOLine 20MG INJ) 10 mg Q6H PRN IV For:SBP above 160;DBP above 90 02/10/25 04:00 03/12/25 03:59 02/16/25 13:22 10 MG Hydromorphone HCl (DiLAUDid 0.5MG INJ) 0.2 mg Q6H PRN IVP SEVERE PAIN (7-10) 02/15/25 09:00 02/20/25 08:59 02/17/25 08:47 0.2 MG Hydromorphone HCl (DiLAUDid 0.5MG INJ) 0.25 mg Q4H PRN IVP SEVERE PAIN (7-10) 02/10/25 04:00 02/15/25 03:59 DC 02/14/25 12:18 0.25 MG Lactated Ringer's 1,000 ml @ 75 mls/hr [id number] IV 02/10/25 04:00 02/11/25 11:42 DC 02/10/25 11:04 75 MLS/HR Lactated Ringer's 1,000 ml @ 75 mls/hr [id number] IV 02/10/25 04:30 03/12/25 04:29 02/10/25 04:42 75 MLS/HR Lactulose (Constulose 20gm/ 30ml Udcup) 20 gm BID PRN PO CONSTIPATION 02/10/25 04:00 03/12/25 03:59 Magnesium Sulfate 50 ml @ 0 mls/hr PROTOCOL PRN IV PROTOCOL 02/11/25 12:00 03/13/25 11:59 02/17/25 05:34 25 MLS/HR Nicotine (Nicoderm) 14 mg DAILY TD 02/11/25 09:00 03/13/25 08:59 02/17/25 08:39 14 MG Ondansetron HCl (zoFRAN 4MG INJ) 4 mg Q6H PRN IV NAUSEA/VOMITING 02/10/25 04:00 03/12/25 03:59 Pantoprazole Sodium (PROTonix 40MG INJ) 40 mg DAILY IV 02/10/25 09:00 03/12/25 08:59 02/17/25 08:39 40 MG Potassium Chloride 100 ml @ 100 mls/hr AD PRN IV POTASSIUM PROTOCOL 02/11/25 12:00 03/13/25 11:59 Potassium Chloride (K-Dur/Klor-Con 20meq) 20 meq AD PRN PO POTASSIUM PROTOCOL 02/11/25 12:00 03/13/25 11:59 02/12/25 19:54 20 MEQ Potassium Chloride (KCl 10% Elixir 20meq/15ml) 20 meq AD PRN PO POTASSIUM PROTOCOL 02/11/25 12:00 03/13/25 11:59 Pregabalin (LYRica 100MG) 100 mg BID PO 02/15/25 21:00 03/17/25 20:59 02/17/25 08:38 100 MG Sacubitril/ Valsartan (Entresto 97 Mg-103 Mg Tablet) 1 each BID PO 02/12/25 21:00 03/14/25 20:59 02/17/25 08:38 1 EACH Sodium Chloride 250 ml @ 0 mls/hr Q0M IV 02/15/25 09:00 03/17/25 08:59 Sodium Chloride 1,000 ml @ 0 mls/hr Q0M IV 02/14/25 12:00 02/14/25 12:45 DC Sodium Chloride 1,000 ml @ 100 mls/hr Q10H IV 02/14/25 12:00 03/16/25 11:59 02/17/25 05:42 100 MLS/HR Sodium Chloride 1,000 ml @ 100 mls/hr Q10H IV 02/16/25 10:30 02/16/25 13:29 DC 02/16/25 13:05 100 MLS/HR Spironolactone (Aldactone 25mg) 25 mg DAILY PO 02/10/25 09:00 03/12/25 08:59 02/17/25 08:38 25 MG Torsemide (Demadex) 20 mg DAILY PO 02/10/25 09:00 03/12/25 08:59 02/17/25 08:38 20 MG DIAGNOSTICS / RADIOLOGY: [ ] ASSESSMENT: Peripheral arterial disease, POA Chronic systolic/diastolic CHF, LVEF as low as 16% in 2019, improved to 60-65% in 2023 Leukocytosis POA Acute kidney injury POA Hypertension Hyperlipidemia Fibromyalgia Type 2 diabetes mellitus Intolerance of statins (myalgias), flecanide, neurontin, gabapentin, SGLT2i PLAN: Peripheral arterial disease * Duplex ultrasound revealed bilateral peripheral vascular disease * CT angiography showed short-segment stenosis of bilateral external iliac arteries, left distal superficial femoral artery with a narrow caliber flow and bilateral superficial femoral arteries, popliteal, anterior tibial and peroneal arteries consistent with moderate peripheral vascular disease. * On 02/16/2025, patient underwent Lower abdominal aortogram, peripheral angiogram with lower extremity arterial runoff, balloon angioplasty and bare metal stent placement in the proximal, mid, and distal left superficial femoral artery. Balloon angioplasty in the right external iliac artery. Procedure was performed by . * Continue goal-directed medical therapy. * Start clopidogrel 75 mg daily and continue aspirin 81 mg daily. The patient will remain on DAPT for a minimum of 6 months, but optimally for 1 year. * Groin precautions. * 4 hours of bedrest post procedure. * No driving x 48 hours. * No strenuous activity or heavy lifting x 2 weeks. * Advised for smoking cessation and Nicotine patch placed * Start patient on heart healthy diet. * She is on PRN IV Dilaudid 0.25 mg for severe pain * Start pregabalin in the p.m. after the procedure. * We will follow up with rifle case repairer for short-term rehab * Follow up with PT evaluation and treatment. Chronic systolic/diastolic CHF, LVEF as low as 16% in 2019, improved to 60-65% in 2023 * Patient's last 2D echo performed in 2023 showed EF of 60-65% * Continue torsemide 20 mg, spironolactone 25 mg, carvedilol 6.25 mg and Entresto * Daily weights and vitals q.4 * Avoid fluid overload * Heart failure medications continuing. Acute kidney injury, most likely contrast nephropathy * Patient creatinine today is 1.2 * Status post CT angiography with contrast * 500 mL bolus given yesterday. Give 250 mL today and keep patient on (100mls/hr) maintenance fluid. * Avoid nephrotoxic agents Mild leukocytosis * Patient WBC increased to 13.2 On 02/17. She is 1 day status post angioplasty of lower extremities secondary to peripheral artery disease. * Blood pressure 133/77. Afebrile * It could be reactive leukocytosis secondary to procedure. * For pain control patient is receiving Dilaudid. She is also receiving duloxetine and pregabalin due to neuropathic nature of pain. * We will follow up with procalcitonin and lactic acid. * We will repeat labs in the morning. GI prophylaxis with Protonix 40 mg and DVT prophylaxis with therapeutic Lovenox 100 mg b.i.d. ATTESTATION BY PHYSICIAN I have seen and examined the patient. I reviewed the documentation, medical decision making, and treatment plan as noted by the resident physician above. I agree with the findings and plan of care. KIRSTEN ROMERO MD, MUHAMMAD H MD Feb 17, 2025 14:19
[2025-02-17] MEDS: ZOSYN 3.375GM +NS 50ML IV SCH (16:53)
--- NOTE | 2025-02-17 17:36 | PN ---
Peripheral arterial disease, POA Chronic systolic/diastolic CHF, LVEF as low as 16% in 2020, improved to 60-65% in 2023 Leukocytosis POA Acute kidney injury POA Hypertension Hyperlipidemia Fibromyalgia Type 2 diabetes mellitus Intolerance of statins (myalgias), flecanide, neurontin, gabapentin, SGLT2i Patient reports relief of pain in her left foot but she still has numbness over the toes in the dorsum of the foot. She is very concerned about this. It is unclear whether she may have a peripheral neuropathy versus residual numbness from ischemia. I reviewed the CT angiogram and there is very significant infrapopliteal disease and superficial femoral disease in the right leg as well, but this is not causing problems at present and I think we should pause after the extensive revascularization that was done yesterday. The patient apparently is thought to have a urinary tract infection which is prolonging her stay. Cardiac/peripheral vascular issues have been addressed and the patient should be discharged on dual antiplatelet therapy plus Repatha (has been on Repatha before hospitalization), and I will see her in the office in a month. I will sign off for now but we are available if additional concerns should arise Vitals/Labs Vital Signs Date Time Temp Pulse Resp B/P (MAP) Pulse Ox O2 Delivery O2 Flow Rate FiO2 02/17/25 12:10 59 19 02/17/25 12:09 N/A Room Air 21 02/17/25 12:00 97.9 121/74 100 02/17/25 08:38 0 Laboratory Tests 02/17/25 04:02 Medications Current Medications Acetaminophen 650 mg Q6H PRN PO Last administered on 02/14/25at 23:08; Start 02/10/25 at 04:00; Stop 03/12/25 at 03:59 Hydromorphone HCl 0.25 mg Q4H PRN IVP Last administered on 02/14/25at 12:18; Start 02/10/25 at 04:00; Stop 02/15/25 at 03:59; Status DC Heparin Sodium (Porcine) 5,000 unit Q12H SQ; Start 02/10/25 at 09:00; Stop 02/11/25 at 18:21; Status DC Hydralazine HCl 10 mg Q6H PRN IV Last administered on 02/16/25at 13:22; Start 02/10/25 at 04:00; Stop 03/12/25 at 03:59 Lactated Ringer's 1,000 ml @ 75 mls/hr [id number] IV Last administered on 02/10/25at 11:04; Start 02/10/25 at 04:00; Stop 02/11/25 at 11:42; Status DC Lactulose 20 gm BID PRN PO; Start 02/10/25 at 04:00; Stop 03/12/25 at 03:59 Pantoprazole Sodium 40 mg DAILY IV Last administered on 02/17/25at 08:39; Start 02/10/25 at 09:00; Stop 03/12/25 at 08:59 Ondansetron HCl 4 mg Q6H PRN IV; Start 02/10/25 at 04:00; Stop 03/12/25 at 03:59 Albuterol 1 UDVIAL [id number] IH Last administered on 02/17/25at 12:08; Start 02/10/25 at 06:00; Stop 03/12/25 at 05:59 Budesonide 0.5 mg BIDRESP IH Last administered on 02/17/25at 07:03; Start 02/10/25 at 06:00; Stop 03/12/25 at 05:59 Lactated Ringer's 1,000 ml @ 75 mls/hr [id number] IV Last administered on 02/10/25at 04:42; Start 02/10/25 at 04:30; Stop 03/12/25 at 04:29 Aspirin 81 mg DAILY PO Last administered on 02/17/25at 08:38; Start 02/10/25 at 09:00; Stop 03/12/25 at 08:59 Carvedilol 6.25 mg BID PO Last administered on 02/17/25at 08:39; Start 02/10/25 at 09:00; Stop 03/12/25 at 08:59 Spironolactone 25 mg DAILY PO Last administered on 02/17/25at 08:38; Start 02/10/25 at 09:00; Stop 03/12/25 at 08:59 Torsemide 20 mg DAILY PO Last administered on 02/17/25at 08:38; Start 02/10/25 at 09:00; Stop 03/12/25 at 08:59 Duloxetine HCl 60 mg BID PO Last administered on 02/17/25at 08:38; Start 02/10/25 at 09:00; Stop 03/12/25 at 08:59 Nicotine 14 mg DAILY TD Last administered on 02/17/25at 08:39; Start 02/11/25 at 09:00; Stop 03/13/25 at 08:59 Iohexol 75 ml STK-MED ONCE IV; Start 02/10/25 at 15:16; Stop 02/10/25 at 15:16; Status DC Potassium Chloride 100 ml @ 100 mls/hr AD PRN IV; Start 02/11/25 at 12:00; Stop 03/13/25 at 11:59 Potassium Chloride 20 meq AD PRN PO; Start 02/11/25 at 12:00; Stop 03/13/25 at 11:59 Potassium Chloride 20 meq AD PRN PO Last administered on 02/12/25at 19:54; Start 02/11/25 at 12:00; Stop 03/13/25 at 11:59 Magnesium Sulfate 50 ml @ 0 mls/hr PROTOCOL PRN IV Last administered on 02/17/25at 05:34; Start 02/11/25 at 12:00; Stop 03/13/25 at 11:59 Enoxaparin Sodium 100 mg BID SQ Last administered on 02/13/25at 20:27; Start 02/11/25 at 21:00; Stop 02/14/25 at 12:45; Status DC Sacubitril/ Valsartan 1 each BID PO Last administered on 02/17/25at 08:38; Start 02/12/25 at 21:00; Stop 03/14/25 at 20:59 Sodium Chloride 1,000 ml @ 0 mls/hr Q0M IV; Start 02/14/25 at 12:00; Stop 02/14/25 at 12:45; Status DC Sodium Chloride 1,000 ml @ 100 mls/hr Q10H IV Last administered on 02/17/25at 05:42; Start 02/14/25 at 12:00; Stop 03/16/25 at 11:59 Hydromorphone HCl 0.2 mg Q6H PRN IVP Last administered on 02/17/25at 14:54; Start 02/15/25 at 09:00; Stop 02/20/25 at 08:59 Sodium Chloride 250 ml @ 0 mls/hr Q0M IV; Start 02/15/25 at 09:00; Stop 03/17/25 at 08:59 Pregabalin 100 mg BID PO Last administered on 02/17/25at 08:38; Start 02/15/25 at 21:00; Stop 03/17/25 at 20:59 Lidocaine HCl 20 ml STK-MED ONCE .ROUTE; Start 02/16/25 at 07:10; Stop 02/16/25 at 07:10; Status DC Iodixanol 100 ml STK-MED ONCE .ROUTE; Start 02/16/25 at 07:10; Stop 02/16/25 at 07:10; Status DC Heparin Sodium (Porcine) 10,000 unit STK-MED ONCE .ROUTE; Start 02/16/25 at 07:10; Stop 02/16/25 at 07:10; Status DC Heparin Sodium/ Sodium Chloride 1,000 ml @ As Directed STK-MED ONCE IV; Start 02/16/25 at 07:10; Stop 02/16/25 at 07:10; Status DC Nitroglycerin 50 mg STK-MED ONCE .ROUTE; Start 02/16/25 at 07:10; Stop 02/16/25 at 07:10; Status DC Nicardipine HCl 25 mg STK-MED ONCE IV; Start 02/16/25 at 07:22; Stop 02/16/25 at 07:22; Status DC Fentanyl Citrate 100 mcg STK-MED ONCE .ROUTE; Start 02/16/25 at 07:32; Stop 02/16/25 at 07:32; Status DC Midazolam HCl 2 mg STK-MED ONCE .ROUTE; Start 02/16/25 at 07:32; Stop 02/16/25 at 07:32; Status DC Heparin Sodium/ Sodium Chloride 500 ml @ As Directed STK-MED ONCE IV; Start 02/16/25 at 07:33; Stop 02/16/25 at 07:34; Status DC Midazolam HCl 2 mg STK-MED ONCE .ROUTE; Start 02/16/25 at 07:47; Stop 02/16/25 at 07:47; Status DC Hydralazine HCl 20 mg STK-MED ONCE .ROUTE; Start 02/16/25 at 08:30; Stop 02/16/25 at 08:30; Status DC Fentanyl Citrate 100 mcg STK-MED ONCE .ROUTE; Start 02/16/25 at 09:58; Stop 02/16/25 at 09:58; Status DC Midazolam HCl 2 mg STK-MED ONCE .ROUTE; Start 02/16/25 at 09:58; Stop 02/16/25 at 09:59; Status DC Sodium Chloride 1,000 ml @ 100 mls/hr Q10H IV Last administered on 02/16/25at 13:05; Start 02/16/25 at 10:30; Stop 02/16/25 at 13:29; Status DC Clopidogrel Bisulfate 75 mg DAILY PO Last administered on 02/17/25at 08:38; Start 02/17/25 at 09:00; Stop 03/19/25 at 08:59 Clopidogrel Bisulfate 300 mg STK-MED ONCE .ROUTE; Start 02/16/25 at 10:27; Stop 02/16/25 at 10:27; Status DC Aspirin 325 mg STK-MED ONCE PO; Start 02/16/25 at 10:27; Stop 02/16/25 at 10:27; Status DC Famotidine 20 mg STK-MED ONCE IV; Start 02/16/25 at 10:52; Stop 02/16/25 at 10:52; Status DC Piperacillin Sod/ Tazobactam Sod 3.375 gm Q8H IV Last administered on 02/17/25at 16:53; Start 02/17/25 at 16:00; Stop 02/21/25 at 16:00 TRISTIN ROCHA MD Feb 17, 2025 17:36
[2025-02-17 20:09] LABS: APPEARANCE,URINE CLEAR (CLEAR); GLUCOSE, URINE (UA) NEGATIVE (NEGATIVE); LEUKOCYTE ESTERASE ,URINE NEGATIVE Leu/uL (NEGATIVE); NITRATE,URINE NEGATIVE (NEGATIVE); OCCULT BLOOD,URINE NEGATIVE (NEGATIVE)
[2025-02-17 20:11] LABS: ADD UA MICROSCOPIC NO
[2025-02-18] VITALS (8 sets, daily range): BP systolic 106–134; BP diastolic 47–55; PULSE 60–92; RESP 17–20; TEMP 97.7–98.1; O2SAT 96–97
--- NOTE | 2025-02-18 05:55 | HMCIMG ---
EXAM: CR Chest, 1 View. CLINICAL HISTORY: Rule out pneumonia versus atelectasis COMPARISON: as compared with previous xray dated 02/10 no significant interval changes seen. FINDINGS: LUNGS: The lungs show no infiltrate or other acute finding. PLEURAL SPACES: No pleural effusion or pneumothorax. MEDIASTINUM: The cardiomediastinal silhouette is within normal limits. BONES: No acute osseous abnormality. IMPRESSION: No acute cardiopulmonary pathology is evident. /[place]
[2025-02-18 07:22] LABS: IMMATURE GRANULOCYTE ABSOLUTE 0.07 K/uL (0-1); NUCLEATED RED BLOOD CELLS 0.0 % (0.0-0.19); PLATELET COUNT (AUTO) 434 K/uL (130-400); RED BLOOD CELL COUNT(AUTO) 3.50 MIL/uL (4.00-5.50); RED CELL DISTRIBUTION WIDTH 18.6 % (11.0-15.5); WHITE BLOOD COUNT (AUTO) 13.3 K/uL (4.8-10.8)
[2025-02-18 08:38] LABS: LYMPHOCYTES % (MANUAL) 47 % (22-44); MAN.DIFF COMMENT-IMPRESSION MANUAL DIFFERENTIAL; MONOCYTES % (MANUAL) 2 % (2-9); PLATELET MORPHOLOGY COMMENT INCREASED; SEGMENTED NEUTROPHILS % 51 % (40-70)
[2025-02-18 08:41] LABS: ASPARTATE AMINOTRANSFERASE 13.0 U/L (10-37); CREATININE 1.2 mg/dL (0.5-1.0); GLOMERULAR FILTR. RATE CALC 49.0 mL/min (>90); GLUCOSE,RANDOM 123.0 mg/dL (70-105); SODIUM SERUM 143.0 mmol/L (136-145); TOTAL PROTEIN, SERUM 5.9 g/dL (6.0-8.3); UREA NITROGEN, BLOOD 22.0 mg/dL (7-18)
[2025-02-18] MEDS ORDERED: CLOP-31 PO (11:16)
[2025-02-18] MEDS ORDERED: PREG100C PO (11:25)
[2025-02-18] MEDS ORDERED: HYDR-4068 PO (11:25)
[2025-02-18] MEDS: LACTULOSE 20 GM/30 ML UDCUP PO PRN (11:42)
--- NOTE | 2025-02-18 12:33 | NUR ---
Discharge Planning: Discharge order in place. Patient refused SNF placement.
--- NOTE | 2025-02-18 13:28 | DS ---
Discharge Summary Hospital Course Summary: Ms. Luna, a 70-year-old female, presented with a chief complaint of lower extremity pain. Character was described as sharp, tingling, numbness. Symptoms were aggravated with walking. Patient denied any associated chest pain or shortness of breath. Patient reported that she had history of poor circulation to the lower extremity. On presentation, WBCs 12.4, creatinine 1.2, urinalysis unremarkable, chest x-ray unremarkable, CT of the head is unremarkable, arterial ultrasound showed monophasic waveforms to the left lower extremity. Cardiology consultation was placed. CT angio abdominal aorta with runoff revealed atheromatous wall calcification of the aorta and its branches and both lower limb arteries with short-segment stenosis of bilateral external iliac arteries indicating moderate peripheral vascular disease. Patient continued to complain of severe pain in the lower extremities, ischemic versus neuropathic. She was kept on Dilaudid and pregabalin was added during the hospitalization course. Patient was also seen by Dr. Barahona who planned to do intervention initially. But as per Cardiology, patient underwent balloon angioplasty and bare metal stent placement in the proximal, mid, and distal left superficial femoral artery as well as Balloon angioplasty in the right external iliac artery by Dr. WILLIAM. After the procedure, she was started on DAPT and was advised to maintain bedrest for 4 hours. On 02/18/2025, patient is vitally stable and has been cleared by Cardiology for discharge. enterprise systems manager evaluated patient for short-term rehab but patient denied SNF. Patient is being discharged with instruction to continue DAPT and GDMT, and take groin precautions. She will follow up with her almond roaster in 1-2 weeks. Marble Carver(s): [facility] CONSULTATION NOTE Cardiology consultation note dictated for Ayaka Lemus MD Primary almond roaster: Tristin Calvillo MD Date Patient Seen: Feb 10, 2025 Time of Visit: 11:25 Requesting Physician: MARK Fair Reason for Consultation: PVD History of Present Illness: This is a 70-year-old female with a past medical history of chronic systolic and diastolic heart failure, previous EF of 16% in 2019 improving to an EF of 60-65% with grade 1 diastolic dysfunction by 2D echo 09/2023, history of paroxysmal atrial tachycardia and frequent atrial ectopy by mobile teletypesetter monitor worn in 01/2023, severe pulmonary hypertension, ASD with QP/QS 2.25 by doppler, 1.16 by oximetry after CHF treatment, intolerant to flecainide, hypertension, dyslipidemia, diabetes mellitus type 2, CVA, carinal lymph nodes and multiple hepatic masses suggestive of disseminated carcinoma in 04/2019, chronic tobacco use, untreated obstructive sleep apnea, fibromyalgia, depression, intolerant to statins, intolerant to SGLT2 inhibitors due to recurrent yeast infections, PAD s/p RLE peripheral angiogram on 07/27/2024 with balloon angioplasty, arthrectomy and stent placement to the external iliac artery, balloon angioplasty and arthrectomy of the common femoral artery, superficial femoral artery, popliteal artery and tibioperoneal trunk, s/p LLE peripheral angiogram on 08/12/2024 with 79% stenosis of left common iliac artery, dissection in the distal abdominal aorta that resolved in the distal left common iliac artery, appeared flow limiting which may be the cause of monophasic waveforms, left BUSINESS SERVICES ANALYST was not amenable for revascularization, patient was referred to the cardiovascular surgeon Dr. Sarah Harley 01/11/2025 with recommendations for the patient undergo an angiogram with Dr. Calvillo prior to revascularization who presented to the ED with complaints of left foot discomfort. Cardiology has been consulted for PAD. The patient admitted to left foot discomfort described as a burning sensation, numbness, tingling, and decreased sensation and mobility for greater than 1 month that has gradually progressed prompting her to seek medical attention. Bilateral lower extremity arterial ultrasound 02/10 revealed mild 20-49% stenosis to the right distal SFA, no flow within the right BUSINESS SERVICES ANALYST, positive flow in the collateral around this area, no flow within the DP artery. Diminished flow was noted to the left distal SFA, no flow within the left BUSINESS SERVICES ANALYST, EDELMIRA, and DP arteries. No wounds to the left foot, unable to palpate DP/PT pulse, duskiness noted to tips of toes. Assessment: PAD, left foot discomfort Chronic systolic/diastolic CHF, LVEF as low as 16% in 2019, improved to 60-65% in 2023 FANNY, untreated Hypertension Pulmonary hypertension ASD with QP/QS 2.25 by doppler, 1.16 by oximetry after CHF treatment Fibromyalgia HTN HLP T2DM CVA in October of 2022 Carinal lymph nodes and multiple hepatic masses suggestive of disseminated carcinoma in 04/2019 Intolerance of statins (myalgias), flecanide, neurontin, gabapentin, SGLT2i Active tobacco use of 2PPD Plan: PAD, left foot discomfort s/p RLE peripheral angiogram on 07/27/2024 with balloon angioplasty, arthrectomy and stent placement to the right external iliac artery, balloon angioplasty and arthrectomy of the right common femoral artery, right superficial femoral artery, right popliteal artery and right tibioperoneal trunk s/p LLE peripheral angiogram on 08/12/2024 with 79% stenosis of left common iliac artery, dissection in the distal abdominal aorta that resolved in the distal left common iliac artery, appeared flow limiting which may be the cause of monophasic waveforms, with left BUSINESS SERVICES ANALYST was not amenable for revascularization BLE arterial ultrasound 02/10 revealed mild 20-49% stenosis to the right distal SFA, no flow within the right BUSINESS SERVICES ANALYST, positive flow in the collateral around this area, no flow within the DP artery. Diminished flow was noted to the left distal SFA, no flow within the left BUSINESS SERVICES ANALYST, EDELMIRA, and DP arteries. The patient was seen by [facility] Dr. Sarah Harley 01/11/2025 with recommendations for the patient undergo an angiogram with Dr. Calvillo prior to revascularization -Continue aspirin. Intolerant to statins. -Obtain a CTA abd aorta with BLE runoff -Consult AYAKA Lowe DO Feb 10, 2025 11:32 NAVEEN FRANKLIN [facility] Feb 10, 2025 15:06 Electronically Signed by: NAVEEN FRANKLIN [facility]04/12/24 1642 Electronically Co-Signed by: Cardiology follow up note Peripheral arterial disease, POA Chronic systolic/diastolic CHF, LVEF as low as 16% in 2019, improved to 60-65% in 2023 Leukocytosis POA Acute kidney injury POA Hypertension Hyperlipidemia Fibromyalgia Type 2 diabetes mellitus Intolerance of statins (myalgias), flecanide, neurontin, gabapentin, SGLT2i Patient is very concerned about paresthesia and numbness in her left leg in particular, but also in the other. She says when she massages her leg she does get some slight improvement in sensation in the foot. Physical exam is notable for a comfortable appearing overweight patient with no respiratory distress, normal heart sounds, no edema and no pulses in the feet. I spoke with Dr. William who is available to do this procedure today. We anticipate left iliac angioplasty/stent and possible left popliteal intervention as well. Because of personnel shortages logistics it did not allow completion of this procedure yesterday, but it will be done today. TRISTIN CALVILLO MD Feb 16, 2025 08:34 Electronically Signed by: TRISTIN CALVILLO MD02/16/25 0834 Electronically Co-Signed by: Cardiology follow up note Peripheral arterial disease, POA Chronic systolic/diastolic CHF, LVEF as low as 16% in 2019, improved to 60-65% in 2023 Leukocytosis POA Acute kidney injury POA Hypertension Hyperlipidemia Fibromyalgia Type 2 diabetes mellitus Intolerance of statins (myalgias), flecanide, neurontin, gabapentin, SGLT2i Patient reports relief of pain in her left foot but she still has numbness over the toes in the dorsum of the foot. She is very concerned about this. It is unclear whether she may have a peripheral neuropathy versus residual numbness from ischemia. I reviewed the CT angiogram and there is very significant infrapopliteal disease and superficial femoral disease in the right leg as well, but this is not causing problems at present and I think we should pause after the extensive revascularization that was done yesterday. The patient apparently is thought to have a urinary tract infection which is prolonging her stay. Cardiac/peripheral vascular issues have been addressed and the patient should be discharged on dual antiplatelet therapy plus Repatha (has been on Repatha before hospitalization), and I will see her in the office in a month. I will sign off for now but we are available if additional concerns should arise TRISTIN CALVILLO MD Feb 17, 2025 17:36 Electronically Signed by: TRISTIN CALVILLO MD02/17/25 1736 Electronically Co-Signed by: CONSULTATION REPORT LOUANN BARAHONA MD DATE OF SERVICE: 02/12/2025 TIME: 11:00 a.m. HISTORY OF PRESENT ILLNESS: The patient is a 70-year-old female who presented with intermittent claudication in her left lower extremity. Vascular Surgery was consulted. PHYSICAL EXAMINATION: NEUROLOGIC: Alert and oriented. CARDIOVASCULAR: S1 and S2. Regular rate and rhythm. RESPIRATORY: Clear to auscultation bilaterally. EXTREMITIES: Relatively warm all the way down to the ankles, but the feet are cold bilaterally. The pulses are weak bilaterally. ASSESSMENT AND PLAN: This is a 70-year-old female who has peripheral arterial disease. CTAs show bilateral common iliac artery stenosis with left greater than 70%. Vascular Surgery was consulted. I believe we need to do a formal angiogram and address the iliac artery stenosis with stents. Once the inflow has been established, we can assess her symptoms and if there is clinical improvement, that will be all for her for now. I suspect in the future she will need some sort of lower extremity revascularization as well, but note if the stent in the iliac improves her symptoms. TID: [id number] RECEIPT: [id number] Electronically Signed by: Electronically Co-Signed by: Procedure(s): Procedure:Peripheral Angiogram Procedure Note Procedure Note: Peripheral Angiogram Date of Service: 02/16/2025 Referring Physician: Dr. Calvillo Procedures Performed: Lower abdominal aortogram, peripheral angiogram with lower extremity arterial runoff, balloon angioplasty and bare metal stent martir cement in the proximal, mid, and distal left superficial femoral artery. Balloon angioplasty in the right external iliac artery Indications for Procedure: PAD, Roxy category 3 symptoms (left lower extremity) PAD, status post multiple interventions of the bilateral lower extremities by the PAD specialist in [place], [place] Description of Procedure: [After informed consent was obtained the patient was prepped and draped in the usual sterile fashion a 6 Nigerien arterial sheath with a hemostatic valve was inserted into the right common femoral artery using a modified Tumbie techniq ue on the first past front wall puncture. A 5 Nigerien Omni Flush catheter was then advanced over a soft angled Glidewire into the abdominal aorta and a lower abdominal aortogram with runoff was obtained. The findings are listed below. The Omni flush catheter was then advanced to the left common femoral artery and a left lower extremity arteriogram was obtained. The findings are listed below.] Findings: Lower abdominal aorta: patent Right common iliac artery: patent. There is a patent stent in the distal end of the right common iliac artery that is patent. The stent extends into the right external iliac artery and right common femoral artery. Right external iliac artery: There is a stent, with 70% ISR seen within the artery Right internal iliac artery: patent Right common femoral artery: patent. There is a patent stent, in the proximal segment of the artery. Right profunda artery: patent Left common iliac artery: patent Left external iliac artery: patent Left internal iliac artery: patent Left common femoral artery: patent Left profunda artery: patent Left superficial femoral artery: There is diffuse 90-95% stenosis in the proximal, and mid segments of the artery. There is 100% stenosis (PEER EDUCATOR = 40 mm) in the mid to distal segments of the artery. The artery reconstitutes distally via collateral blood flow Left popliteal artery: patent Left anterior tibial artery: 100% stenosis (PEER EDUCATOR > 240 mm) in the proximal segment of the artery. The artery does not reconstitute distally Left tibial peroneal artery: patent Left peroneal artery: patent Left posterior tibial artery: 100% stenosis (PEER EDUCATOR > 240 mm) in the proximal segment of the artery. The artery does not reconstitute distally Left pedal arch: Incomplete, with slow single-vessel runoff supplying the anterior and posterior segments of the left pedal arch. Intervention: After reviewing the above-mentioned findings the decision was made to intervene on the left SFA. The soft angled glidewire was inserted into the Omni flush catheter and was advanced across the area of stenosis into the distal left popliteal artery. We then removed the Omni flush catheter and exchanged the short 6 Nigerien arterial sheath for a 65 cm 6 Nigerien destination arterial sheath, which was then placed in the proximal left superficial femoral artery. We then administered heparin 75 units/kg x1 dose, clopidogrel 600 mg x 1 dose, and aspirin 325 mg x 1 dose. We then advanced a 0.035 quick cross catheter over the soft angled Glidewire and into the distal left popliteal artery. We then removed the soft angled Glidewire and injected contrast into the quick cross catheter, which ensured that we were in the true lumen of the left popliteal artery. Once this was confirmed, we advanced a 0.014 runthrough guidewire into the quick cross catheter and into the distal left peroneal artery. We then removed the quick cross catheter and performed balloon angioplasty (4.0 x 150 mm > 5.0 x 200 mm > 6.0 x 150 mm) in the proximal, mid, distal left superficial artery. We then performed IVUS assessment of the left superficial femoral artery which identified the dissection plane extending from the proximal to the distal left superficial artery. We then performed successful bare metal stent placement (Everflex 6.0 x 80 mm, 6.0 x 200 mm and 5.0 x 120 mm) in an overlapping fashion, in the proximal, mid, and distal left superficial femoral artery. The stents were post dilated using a 6.0 x 150 mm balloon, achieving optimal results. Repeat angiography then revealed widely patent stents in the proximal, mid, and distal left superficial artery, and brisk single-vessel runoff supplying the left foot/pedal arch. We then removed the 0.014 runthrough guidewire and exchanged the 65 cm six Nigerien destination arterial sheath, for a short 6 Nigerien arterial sheath. We then advanced a 0.035 J-tip wire across the stent and into the distal abdominal aorta. We then performed successful balloon angioplasty (6.0 x 40 mm > 8.0 x 40 mm) within the stent in the right external iliac artery to address the ISR. The balloons were then removed and repeat angiography was performed, which revealed a widely patent stent in the right external iliac artery. The 0.035 J-tip wire and short six Nigerien Chest sheath were removed and the arteriotomy site was successfully closed using a 6 Nigerien Angio-Seal device. The patient tolerated the procedure well and without issue. Estimated Blood Loss: [60]mL Complications: [ None] Conclusion: 1. PAD, Roxy category 3 symptoms, diffuse 90-95% stenosis in the proximal, and mid left superficial artery and 100% stenosis in the mid to distal left superficial femoral artery status post successful treatment with balloon angioplasty and bare metal stent placement (Everflex 6.0 x 80 mm, 6.0 x 200 mm, and 5.0 x 120 mm). The stents were post dilated, achieving optimal results. 2. Residual PAD, 100% stenosis in the left anterior tibial artery and 100% stenosis in the left posterior tibial artery. Neither artery reconstitutes distally thus they are not amenable to percutaneous or surgical intervention 3. PAD, 70% ISR in the stent in the right external iliac artery status post successful treatment with balloon angioplasty Recommendations/Instructions: 1. Continue goal-directed medical therapy. 2. Start clopidogrel 75 mg daily and continue aspirin 81 mg daily. The patient will remain on DAPT for a minimum of 6 months, but optimally for 1 year. 3. Groin precautions. 4. 4 hours of bedrest. 5. Please start NS at 100 mL/hr x 3 hours. 6. No driving x 48 hours. 7. No strenuous activity or heavy lifting x 2 weeks. RACHEL WILLIAM MD Feb 16, 2025 11:17 Electronically Signed by: RACHEL WILLIAM MD02/16/257 Electronically Co-Signed by: PATIENT: VLAD SANTOS MR#: [id number] : 1955 SEX: F AGE: 70 LOCATION: [facility] ORDER 02 STATUS: [facility] REPORT#: [id number] SERVICE 01 REASON: Shortness of breath ORDERING PHYSICIAN: KAELYN YOO MD PROCEDURE: CXR1VW - CHEST 1VW EXAM: CR Chest, 1 view CLINICAL HISTORY: Shortness of breath. COMPARISON: Chest radiograph dated 02/09/2025. FINDINGS: The lungs show no infiltrates or other acute findings. No pleural effusion or pneumothorax. The cardiomediastinal silhouette is within normal limits. No acute osseous abnormality. IMPRESSION: No acute cardiopulmonary process is evident. /Milo DICTATED BY: JAMEY HI Jr., MD DATE: 02/10/25199 ELECTRONICALLY SIGNED BY: JAMEY HI Jr., MD DATE: 02/10/25199 PATIENT: VLAD SANTOS MR#: [id number] : 1955 SEX: F AGE: 70 LOCATION: ED ORDER 02 STATUS: [facility] REPORT#: [id number] SERVICE 01 REASON: Headache ORDERING PHYSICIAN: KAELYN YOO MD PROCEDURE: HEAD WO - CT HEAD/BRAIN W/O CONTRAST EXAM: CT Head Without IV Contrast. CLINICAL HISTORY: Headache. TECHNIQUE: Axial computed tomography images of the head/brain without intravenous contrast. COMPARISON: None provided. FINDINGS: BRAIN: No evidence of acute hemorrhage. No mass lesion. No CT evidence for acute territorial infarct. No midline shift or extra-axial collections. There is a small hypodensity in the right occipital lobe, suggestive of an old infarct with encephalomalacia. The CSF spaces are prominent, consistent with volume loss. Periventricular white matter T2 and FLAIR hyperintensities are identified, suggestive of chronic small vessel ischemia. A partially empty sella is seen. There is an atherosclerotic calcification of the intracranial arteries. VENTRICLES: No hydrocephalus. ORBITS: The orbits are unremarkable. SINUSES AND MASTOIDS: Mild mucosal thickening is seen in the sphenoid sinus, suggestive of sinus disease. The other paranasal sinuses and mastoid air cells are clear. BONES: No fracture. SOFT TISSUES: Unremarkable. 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 Mild chronic ischemic changes secondary to small vessel disease. /Milo DICTATED BY: JAMEY HI Jr., MD DATE: 02/10/25111 ELECTRONICALLY SIGNED BY: JAMEY HI Jr., MD DATE: 02/10/25111 PATIENT: VLAD SANTOS MR#: [id number] : 1955 SEX: F AGE: 70 LOCATION: EDHIP ORDER 6 STATUS: ADM IN REPORT#: [id number] SERVICE 4 REASON: numbness to LLE, flow evaluation ORDERING PHYSICIAN: ERIK GALAVIZ MD PROCEDURE: ART B LE - US ARTERIAL BILAT LOW EXT DUPL EXAM: US Duplex Bilateral Lower Extremity Arteries CLINICAL HISTORY: Numbness in the left lower extremity, flow evaluation TECHNIQUE: Real-time ultrasound scan of the arteries of the bilateral lower extremities with 2-D antonio scale, color Doppler flow, and spectral waveform analysis. COMPARISON: None provided. FINDINGS: RIGHT LOWER EXTREMITY: Common Femoral Artery (TRUCK DRIVER INSTRUCTOR): PSV 96 cm/s, monophasic waveform. Patent. Superficial Femoral Artery (SFA) Proximal: PSV 102 cm/s, monophasic waveform. Patent. SFA Mid: PSV 54 cm/s, monophasic waveform. Patent. SFA Distal: PSV 189 cm/s, monophasic waveform with velocity elevation suggesting approximately 20???49% stenosis. Popliteal Artery (POP A Prox): PSV 62 cm/s, monophasic waveform. Popliteal Artery (POP A Dist): PSV 47 cm/s, monophasic waveform. Posterior Tibial Artery (BUSINESS SERVICES ANALYST): No flow detected. Anterior Tibial Artery (EDELMIRA): Collateral flow noted with PSV 20 cm/s. Monophasic waveform. Dorsalis Pedis Artery (DPA): No flow detected. LEFT LOWER EXTREMITY: Common Femoral Artery (TRUCK DRIVER INSTRUCTOR): PSV 135 cm/s, triphasic waveform. Patent. Superficial Femoral Artery (SFA) Proximal: PSV 36 cm/s, monophasic waveform. SFA Mid: PSV 41 cm/s, monophasic waveform. SFA Distal: PSV 9 cm/s, monophasic waveform, markedly decreased flow. Popliteal Artery (POP A Prox): PSV 79 cm/s, monophasic waveform. Popliteal Artery (POP A Dist): PSV 64 cm/s, monophasic waveform. Posterior Tibial Artery (BUSINESS SERVICES ANALYST): No flow detected. Anterior Tibial Artery (EDELMIRA): No flow detected. Dorsalis Pedis Artery (DPA): No flow detected. IMPRESSION: Diffuse peripheral vascular disease bilaterally. Right: Mild stenosis (20???49%) at right distal SFA. There is no flow within the right posterior tibial artery. Positive flow in the collateral around this area. No flow is detected within the dorsalis pedis artery. Left: Diminished flow in the left distal superficial femoral artery. No flow is evident within the left posterior tibial, anterior tibial, and dorsalis pedis arteries. Recommend a CTA runoff for further evaluation. /Milo DICTATED BY: JAMEY HI Jr., MD DATE: 02/10/25602 ELECTRONICALLY SIGNED BY: JAMEY HI Jr., MD DATE: 02/10/25602 PATIENT: VLAD SANTOS MR#: [id number] : 1955 SEX: F AGE: 70 LOCATION: 3AH ORDER 1243 STATUS: ADM IN REPORT#: [id number] SERVICE [id number] REASON: pad ORDERING PHYSICIAN: NAVEEN FRANKLIN PROCEDURE: CTA ABDAOR - CT ANGIO ABD AORTA W RUNOFF EXAMINATION: CT ANGIOGRAM OF ABDOMEN AND PELVIS AND RUNOFFS OF THE BILATERAL LOWER EXTREMITIES. CLINICAL HISTORY: Deep venous thrombosis. COMPARISON: None provided. TECHNIQUE: MDCT angiogram of the abdominal aortic vessels was performed after administration of intravenous contrast. FINDINGS: Abdominal aorta is normal in size and caliber. There are atheromatous wall calcification of the aorta, its branches, iliac arteries, and both lower limb arteries. There is no aneurysm or dissection. There is no stenosis or occlusion. The abdominal aortic branches, viz., the celiac and superior mesenteric arteries, are normal in caliber. There is no stenosis or occlusion. The angle between superior mesenteric artery and aorta is normal. Bilateral renal arteries are normal in caliber. There is no stenosis or occlusion. The inferior mesenteric arteries are normal in caliber. Bifurcation morphology is normal. There is no stenosis or occlusion. The bilateral common iliac arteries are normal in caliber. No stenosis or occlusion. The bilateral internal iliac arteries are normal; there is no stenosis or occlusion. Short segment stenosis of the proximal segment of both external iliac arteries with about 60-70% luminal narrowing on the right and 70-80% luminal narrowing on the left. Narrow caliber flow in bilateral superficial femoral arteries. Short segment stenosis of the left distal superficial femoral artery. Collateralized narrow caliber flow in the left popliteal, left peroneal, and left anterior tibial artery. Narrow caliber flow in the right popliteal, right peroneal, and right anterior tibial artery. No demonstrable flow in bilateral posterior tibial arteries. Within the abdomen and pelvis, multiple mon-enhancing hypodense cystic lesions in all segments of the liver ??? cysts; bilateral renal cortical cysts, the largest on the right side measures 3.3 x 3.5 cm and on the left measures 1.0 x 1.0 cm; gallbladder, pancreas, spleen, and adrenal glands are within normal limits; bowel loops are normal in caliber without evidence of obstruction, ileus, or bowel wall thickening, and the appendix is normal; and urinary bladder, pelvic organs appear normal in caliber. The included chest reveals subpleural ground glassing with interseptal thickening in both lower lobes. There is multilevel moderate degenerative spondylosis of the spine. IMPRESSION: Atheromatous wall calcification of the aorta, its branches, iliac arteries, and both lower limb arteries with short segment stenosis of bilateral external iliac arteries, left distal superficial femoral artery with narrow caliber flow in bilateral superficial femoral arteries, popliteal, anterior tibial and peroneal arteries ??? moderate peripheral vascular disease. /Milo DICTATED BY: DMITRIY BARNETT MD DATE: 02/11/251505 ELECTRONICALLY SIGNED BY: DMITRIY BARNETT MD DATE: 02/11/251505 PATIENT: VLAD SANTOS MR#: [id number] : 1955 SEX: F AGE: 70 LOCATION: 3AH ORDER 38 STATUS: ADM IN REPORT#: [id number] SERVICE 32 REASON: Rule out pneumonia versus atelectasis ORDERING PHYSICIAN: MICHELA CARDONA MD PROCEDURE: CXR1VW - CHEST 1VW EXAM: CR Chest, 1 View. CLINICAL HISTORY: Rule out pneumonia versus atelectasis COMPARISON: as compared with previous xray dated 02/10 no significant interval changes seen. FINDINGS: LUNGS: The lungs show no infiltrate or other acute finding. PLEURAL SPACES: No pleural effusion or pneumothorax. MEDIASTINUM: The cardiomediastinal silhouette is within normal limits. BONES: No acute osseous abnormality. IMPRESSION: No acute cardiopulmonary pathology is evident. /Milo DICTATED BY: JAMEY HI Jr., MD DATE: 02/18/25653 ELECTRONICALLY SIGNED BY: JAMEY HI Jr., MD DATE: 02/18/25653 PATIENT: VLAD SANTOS ACCT: [id number] LOC: 3A U: [id number] AGE/SX: 70/F ROOM: [facility] RE02/10/[address]: SOHAM OGELSBY MD : 1955 BED: 1 DIS: STATUS: ADM IN TLOC: SPEC: [id number] ARIC: 02/10/25 STATUS: COMP REQ: [id number] RECD: 02/10/[address] [facility] [address]: CIPRIANO ESCALANTEP SOURCE: BLOOD ENTR: 02/10/25-[address] [facility] [address]: YES[facility]ASE [facility] RAD[facility]OR[facility] MD, ANGELO JOSEPH G MD ORDERED: BLOOD CULTURE COMMENTS: What is the Source? BLOOD ---- -------- Procedure Result Shireen Date-Time BLOOD CULT Final 02/15/25 NO GROWTH AFTER 5 DAYS PATIENT: VLAD SANTOS ACCT: [id number] LOC: 3A U: [id number] AGE/SX: 70/F ROOM: 330 RE02/10/[address]: SOHAM OGLESBY MD : 1955 BED: 1 DIS: 02/18/25 STATUS: DIS IN TLOC: SPEC: [id number] ARIC: 02/17/25 STATUS: RES REQ: [id number] RECD: 02/17/25-[address]: MICHELA CARDONA MD SOURCE: BLOOD ENTR: 02/17/25-[address] [facility] [address]: YESI CHASE MD [facility]: SOHAM OGLESBY MD,RADHA HARLEY,YESY Méndez MD ORDERED: BLOOD CULTURE COMMENTS: What is the Source? BLOOD --------- --- Procedure Result Shireen Date-Time BLOOD CULT Preliminary 02/18/25 NO GROWTH AFTER 24 HOURS PATIENT: VLAD SANTOS ACCT: [id number] LOC: 3A U: [id number] AGE/SX: 70/F ROOM: 330 RE02/10/[address]: SOHAM OGLESBY MD : 1955 BED: 1 DIS: 02/18/25 STATUS: DIS IN TLOC: SPEC: [id number] ARIC: 02/17/25 STATUS: RES REQ: [id number] RECD: 02/17/[address] [facility] [address]: MICHELA CARDONA MD SOURCE: BLOOD ENTR: 02/17/[address]: [facility]ASE [facility] SOH[facility]GLES[facility] MD,RADHA HARLEY,YESY Méndez MD ORDERED: BLOOD CULTURE COMMENTS: What is the Source? BLOOD Procedure Result Shireen Date-Time BLOOD CULT Preliminary 02/18/25 NO GROWTH AFTER 24 HOURS Assessment/Plan: ASSESSMENT: Peripheral arterial disease, POA Chronic systolic/diastolic CHF, LVEF as low as 16% in 2019, improved to 60-65% in 2023 Leukocytosis POA Acute kidney injury POA Hypertension Hyperlipidemia Fibromyalgia Type 2 diabetes mellitus Intolerance of statins (myalgias), flecanide, neurontin, gabapentin, SGLT2i Home Medications: Active Scripts Pregabalin (Lyrica) 100 Mg Capsule, 1 CAP PO BID for 15 Days, #30 CAP 0 Refills Prov:KIRSTEN ROMERO MD 02/18/25 Hydrocodone/Acetaminophen (Hydrocodon-Acetaminophn 10-325) 10 Mg-325 Mg Tablet, 1 TAB PO Q6HPRN PRN for pain for 7 Days, #30 TAB 0 Refills Prov:KIRSTEN ROMERO MD 02/18/25 Clopidogrel Bisulfate (Plavix) 75 Mg Tablet, 1 TAB PO DAILY for 30 Days, #30 TAB 0 Refills Prov:NISSA IRELAND MD 02/18/25 Diclofenac Sodium (Voltaren Arthritis Pain) 1 % Gel..gram., 4 GM TP TID for 10 Days, #1 TUBE Prov:MALGORZATA HARRIS MD 08/30/24 Torsemide (Torsemide) 20 Mg Tablet, 20 MG PO DAILY for 30 Days, #30 TAB Prov:MADDIE DUNBAR Jr., MD 06/03/19 Spironolactone (Aldactone) 25 Mg Tablet, 25 MG PO DAILY for 30 Days, #30 TAB Prov:MADDIE DUNBAR Jr., MD 06/03/19 Carvedilol (Coreg) 6.25 Mg Tablet, 6.25 MG PO BID for 30 Days, #60 TAB Prov:MADDIE DUNBAR Jr., MD 06/03/19 Aspirin (ASPIRIN 81 MG ECTAB) 81 Mg Ectab, 81 MG PO DAILY for 30 Days, #30 TAB.EC Prov:MADDIE DUNBAR Jr., MD 06/03/19 Reported Medications Fluticasone/Umeclidin/Vilanter (Trelegy Ellipta 100-62.5-25) 100-62.5 Blst.w.dev, 1 PUFF IH DAILY for 30 Days, #1 EACH 0 Refills 08/31/24 Duloxetine HCl (Duloxetine HCl) 60 Mg Capsule.dr, 1 CAP PO BID for 30 Days, #30 CAP 0 Refills 08/31/24 Omeprazole Magnesium (Prilosec Otc) 20 Mg Tablet.dr, 40 MG PO DAILY, TAB 05/29/19 Allopurinol (Allopurinol) 300 Mg Tablet, 300 MG PO DAILY, TAB 05/29/19 Cholecalciferol (Vitamin D3) (Vitamin D3) 50 Mcg Capsule, 50 MCG PO DAILY, CAP 05/29/19 New Medications: Clopidogrel Bisulfate (Plavix) 75 Mg Tablet 1 TAB PO DAILY for 30 Days, #30 TAB 0 Refills Pregabalin (Lyrica) 100 Mg Capsule 1 CAP PO BID for 15 Days, #30 CAP 0 Refills Changed Medications: Hydrocodone/Acetaminophen (Hydrocodon-Acetaminophn 10-325) 10 Mg-325 Mg Tablet 1 TAB PO Q6HPRN PRN for pain for 7 Days, #30 TAB 0 Refills (Changed from: Q4HPRN; 60; 30) Continued Medications: Allopurinol (Allopurinol) 300 Mg Tablet 300 MG PO DAILY, TAB Aspirin (Aspirin 81 Mg Ectab) 81 Mg Ectab 81 MG PO DAILY for 30 Days, #30 TAB.EC Carvedilol (Coreg) 6.25 Mg Tablet 6.25 MG PO BID for 30 Days, #60 TAB Cholecalciferol (Vitamin D3) (Vitamin D3) 50 Mcg Capsule 50 MCG PO DAILY, CAP Diclofenac Sodium (Voltaren Arthritis Pain) 1 % Gel..gram. 4 GM TP TID for 10 Days, #1 TUBE Duloxetine HCl (Duloxetine HCl) 60 Mg Capsule.dr 1 CAP PO BID for 30 Days, #30 CAP 0 Refills Fluticasone/Umeclidin/Vilanter (Trelegy Ellipta 100-62.5-25) 100-62.5 Blst.w.dev 1 PUFF IH DAILY for 30 Days, #1 EACH 0 Refills Omeprazole Magnesium (Prilosec Otc) 20 Mg Tablet.dr 40 MG PO DAILY, TAB Spironolactone (Aldactone) 25 Mg Tablet 25 MG PO DAILY for 30 Days, #30 TAB Torsemide (Torsemide) 20 Mg Tablet 20 MG PO DAILY for 30 Days, #30 TAB Time spent arranging discharge: 31-60 minutes ATTESTATION BY PHYSICIAN I have seen and examined the patient. I reviewed the documentation, medical decision making, and treatment plan as noted by the resident physician above. I agree with the findings and plan of care. KIRSTEN ROMERO MD, MUHAMMAD H MD Feb 18, 2025 13:28
== END 2025-02-18 13:00 | disposition home or self-care (01) | DRG 253 ==
LOC: EDH 22:46 → EDHIP 02-10 03:55 → 3AH 02-10 16:00
PROVIDERS: ADMIT Internal Medicine; ATTEND Internal Medicine
PROC: 047H3ZZ Dilation of Right External Iliac Artery, Percutaneous Approach (ICD-10-PCS; principal; 2025-02-16)
PROC: 047L3FZ Dilation of Left Femoral Artery with Three Intraluminal Devices, Percutaneous Approach (ICD-10-PCS; 2025-02-16)
PROC: B41D1ZZ Fluoroscopy of Aorta and Bilateral Lower Extremity Arteries using Low Osmolar Contrast (ICD-10-PCS; 2025-02-16)
DX: T82.856A Stenosis of peripheral vascular stent, initial encounter (principal); I50.42 Chronic combined systolic (congestive) and diastolic (congestive) heart failure; N17.9 Acute kidney failure, unspecified; I27.20 Pulmonary hypertension, unspecified; E11.51 Type 2 diabetes mellitus with diabetic peripheral angiopathy without gangrene; D72.829 Elevated white blood cell count, unspecified; E78.00 Pure hypercholesterolemia, unspecified; I11.0 Hypertensive heart disease with heart failure; J44.9 Chronic obstructive pulmonary disease, unspecified; I70.8 Atherosclerosis of other arteries; F32.A Depression, unspecified; G47.33 Obstructive sleep apnea (adult) (pediatric); M79.7 Fibromyalgia; F17.200 Nicotine dependence, unspecified, uncomplicated; I70.0 Atherosclerosis of aorta; Z71.6 Tobacco abuse counseling; Z79.51 Long term (current) use of inhaled steroids; Z79.82 Long term (current) use of aspirin; Z82.49 Family history of ischemic heart disease and other diseases of the circulatory system; Z86.73 Personal history of transient ischemic attack (TIA), and cerebral infarction without residual deficits; Z88.8 Allergy status to other drugs, medicaments and biological substances; Z90.710 Acquired absence of both cervix and uterus; Z79.899 Other long term (current) drug therapy; Y83.8 Other surgical procedures as the cause of abnormal reaction of the patient, or of later complication, without mention of misadventure at the time of the procedure; Y92.89 Other specified places as the place of occurrence of the external cause
CPT/HCPCS: 36415; 37220; 37226; 37252; 37253; 70450; 71045; 75635; 75716; 80048; 80053; 80076; 81001; 81003; 82550; 82570; 83605; 83735; 83935; 84100; 84145; 84300; 84484; 85025; 85027; 85347; 85610; 85730; 86140; 86850; 86900; 86901; 87040; 93005; 93925; 94640; 94664; 99156; 99157; 99285; C1725; C1760; C1893; C1894; G0378; J0360; J1171; J1644; J1650; J2250; J2470; J2543; J3010; J3475; J3490; J7030; Q9967; C1753; C1769; C1876; C1887; J1308